=== PATIENT | female | born 1945 | race Caucasian/White ===

== ENCOUNTER 2020-01-22 03:09 | Inpatient (IN) | payer MEDICARE, MEDICAID ==
[2020-01-22] VITALS (10 sets, daily range): BP systolic 87–113; BP diastolic 19–71; O2SAT 95–97
[~2020-01-22] VITALS: Ht 154.9 cm; Wt 91.5 kg
[2020-01-22] MEDS ORDERED: BUPIVACAINE/EPIN 0.25% 30 ML VIAL As Ordered ONE (03:26)
[2020-01-22] MEDS ORDERED: propofoL 200 MG/20 ML VIAL As Ordered ONE (04:13)
[2020-01-22] MEDS ORDERED: ROCURONIUM BROMIDE 50 MG/5 ML VIAL As Ordered ONE ×2 (04:13→05:33)
[2020-01-22] MEDS ORDERED: LIDOCAINE 2% 100MG/5ML SDV (FOR ANES.) As Ordered ONE (04:13)
[2020-01-22] MEDS ORDERED: ONDANSETRON 4MG/2ML VIAL As Ordered ONE (04:13)
[2020-01-22] MEDS ORDERED: dexameTHASONE 4 MG/ML 1ML VIAL (J1100 PER 1MG) As Ordered ONE (04:13)
[2020-01-22] MEDS ORDERED: fentaNYL 100 MCG/2 ML INJECTION (J3010) As Ordered ONE (04:13)
[2020-01-22] MEDS ORDERED: SUCCINYLCHOLINE 100 MG/5 ML SYRINGE (J0330) As Ordered ONE (04:47)
[2020-01-22] MEDS ORDERED: MORPHINE 2 MG/ML 1ML VIAL (J2270) IV PRN (05:00)
[2020-01-22] MEDS ORDERED: PIPERACILLIN/TAZOBACTAM SOD 2.25 GM in D5W MINI-BAG PLUS 50 ML IV SCH (05:00)
[2020-01-22] MEDS ORDERED: metroNIDAZOLE 500 MG in IV 1 EA IV SCH (05:00)
[2020-01-22] MEDS ORDERED: VASOPRESSIN INJ 20 UNITS/ML VIAL As Ordered ONE (05:19)
[2020-01-22] MEDS ORDERED: ACETAMINOPHEN 1000MG 100ML IV BTL (OFIRMEV) (J0131 PER 10MG) As Ordered ONE (06:29)
[2020-01-22] MEDS ORDERED: SUGAMMADEX SODIUM 500 MG/5 ML VIAL (BRIDION) As Ordered ONE (06:39)
[2020-01-22] MEDS ORDERED: POTA1TAB23 PO (06:55)
[2020-01-22] MEDS ORDERED: RISP1TAB3 PO (06:55)
[2020-01-22] MEDS ORDERED: ASPI-527 PO (06:55)
[2020-01-22] MEDS ORDERED: DULO1CAP5 PO (06:55)
[2020-01-22] MEDS ORDERED: LEVO88TA3 PO (06:55)
[2020-01-22] MEDS ORDERED: LISI20TA19 PO (06:55)
[2020-01-22] MEDS ORDERED: METO1TAB7 PO (06:55)
[2020-01-22] MEDS ORDERED: OXYB5TAB10 PO (06:55)
[2020-01-22] MEDS ORDERED: CALCTAB89 PO (06:55)
[2020-01-22] MEDS ORDERED: HYDROmorphone HCL 2 MG/ML 1ML VIAL (J1170) As Ordered ONE (07:15)
[2020-01-22] MEDS ORDERED: PERCOCET 5MG/325MG TAB PO PRN (08:00)
[2020-01-22] MEDS ORDERED: ONDANSETRON 4MG/2ML VIAL IV PRN (08:00)
[2020-01-22] MEDS ORDERED: METOCLOPRAMIDE INJ 10MG/2ML VIAL (J2765 PER 1) IV PRN (08:00)
[2020-01-22] MEDS ORDERED: LR 1,000 ML IV SCH (08:00)
[2020-01-22] MEDS ORDERED: fentaNYL 100 MCG/2 ML INJECTION (J3010) IV PRN (08:00)
[2020-01-22] MEDS ORDERED: MEPERIDINE INJ 25 MG/ML VIAL (J2175) IV PRN (08:00)
[2020-01-22] MEDS ORDERED: PIPERACILLIN/TAZOBACTAM SOD 3.375 GM in D5W MINI-BAG PLUS 50 ML IV ONE (10:00)
[2020-01-22] MEDS ORDERED: SIMV20TA22 PO (10:04)
--- NOTE | 2020-01-22 10:08 | HPE ---
DATE OF ADMISSION: 01/22/2020 CHIEF COMPLAINT: Abdominal pain. HISTORY OF PRESENT ILLNESS: The patient is a 74-year-old female, who is transferred to dc from [facility] for perforated bowel. She presented there with abdominal pains that started around 7 o'clock last evening. The pains are progressively worse and sharp, minimal nausea and vomiting, no fevers, just severe lower abdominal pains. In the emergency room (ER), she had a CT scan done showing a perforated bowel as well as an elevated leukocytosis and signs of acute kidney injury as well. She was transferred to dc for emergent surgery. She says the pain just started last evening. She normally has bowel movements every other day that are normal in caliber, no complaints there, no problems with those. She has had a previous colonoscopy but she cannot remember when that was. No family history of colon cancer. No recent travel or trauma. No other problems. PAST MEDICAL HISTORY: 1. Hypothyroidism. 2. Hypertension. 3. Diabetes. 4. History of a previous transient ischemic attack (TIA). PAST SURGICAL HISTORY: 1. Thyroid radiation. 2. Umbilical hernia repair. ALLERGIES: NONE. HOME MEDICATIONS: Please see medical record. REVIEW OF SYSTEMS: Pertinent positives and negatives as stated in the history of present illness (HPI). PHYSICAL EXAMINATION: General: Alert and oriented times three, in no acute stress. Vital signs: Temperature 97.2, pulse 83, respirations 12, blood pressure 139/61, pulse oximetry 100% on non-rebreather, 94% on nasal cannula. HEENT: Pupils equal, round and react to light and accommodation. Heart: S1, S2, regular rate and rhythm. Lungs: Clear to auscultation bilaterally. Abdomen: Soft. Tender to palpation diffusely, rebound tenderness and guarding. Distended abdomen. There is an infraumbilical midline ventral hernia that is nonreducible. Extremities: Bilateral lower extremity pitting edema. LABORATORY DATA: Labs were all obtained outpatient. Please see her chart for the labs that were transferred over from [place]. IMAGING: Again, CT abdomen without contrast was obtained in [place]. Images were sent over and I reviewed those. She does have a large amount of free air in the abdomen along with some air-fluid levels. No obvious signs of a perforation on the CT. ASSESSMENT AND PLAN: The patient is a 74-year-old female with likely perforated viscus from somewhere in the colon. Recommendation is to proceed with exploratory laparotomy. Risks and benefits of procedure not limited but including bleeding, infection, hernia formation, damage to surrounding structure, need for further surgery were discussed in detail with the patient. Informed consent was obtained and procedure was planned emergently. Postoperatively, she will be kept in the hospital until she is tolerating bowel movements and able to take care of her ostomy and then she will be discharged home.
[2020-01-22] MEDS: SENOKOT S TAB PO SCH ×2 (10:45→20:09)
[2020-01-22] MEDS: PANTOPRAZOLE 40MG TAB (PROTONIX) PO SCH (10:45)
[2020-01-22] MEDS: KCL 20MEQ IN D5/0.45NS 1000ML 1,000 ML IV SCH ×2 (10:47→20:11)
[2020-01-22 10:49] LABS: CALCIUM LEVEL 8.7 MG/DL (8.8-10.2); CREATININE FOR GFR 1.86 MG/DL (0.55-1.30); GLOMERULAR FILTRATION RATE 28.2 (>39); POTASSIUM SERUM 4.4 MEQ/L (3.5-5.1)
--- NOTE | 2020-01-22 10:52 | RO ---
DATE OF PROCEDURE: 01/22/2020 PREOPERATIVE DIAGNOSIS: Perforated viscus. POSTOPERATIVE DIAGNOSIS: Perforated rectum. PROCEDURE: Exploratory laparotomy with abdominal washout, sigmoid resection with end sigmoid colostomy and drain placement. SURGEON: Dr. Garcia POLYSOMNOGRAPH TECH: None. ANESTHESIA: General. ESTIMATED BLOOD LOSS: 150. COMPLICATIONS: None. INDICATIONS FOR PROCEDURE: Patient is a 74-year-old female with abdominal pain and signs of a perforated viscus on CT. She was transferred from [facility] for emergent surgery. Risks of procedure not limited but including bleeding, infection, hernia formation, damage to surrounding structure, need for further surgery were discussed in detail with the patient. Informed consent was obtained and procedure was planned. DESCRIPTION OF PROCEDURE: Patient brought back to operating room #3. After sufficient sedation, the abdomen was sterilely prepped and draped. Next, time-out was done to confirm proper patient and proper procedure. Following that a #10 blade scalpel was used to make a midline laparotomy, incision was carried down to the fascia using cautery. Once the fascia was reached, it was opened up revealing a large amount of air. The abdomen was then opened up from the sternum down towards the pubic symphysis using cautery. The ventral hernia contained a large amount of incarcerated omentum. This was all dissected free and reduced. Once this was all completed, the abdomen was examined. There was gross stool in the pelvis and in the lower abdomen. This was all irrigated and removed. The colon was then examined. There was a large amount of hard fecal material throughout the entire colon and made it very difficult to mobilize. The sigmoid colon was redundant. Tracing the sigmoid down to the mid rectum did reveal an anterior rectal perforation. It was too distal to safely transect beyond that point due to out the large amount of hard stool in her colon. Even using the Bookwalter retractor the visualization down into the pelvis was very limited. I was however able to transect the bowel just proximal around the rectosigmoid junction. I was able to get through a window in the mesentery using cautery. The bowel was transected using the curved Contour stapler. Once that was completed, the mesentery was dissected proximally up through the sigmoid colon long enough to be able to pull out a segment of the distal sigmoid for a colostomy. Once that was completed, the abdomen was irrigated some more. Incision was made in the left midabdomen through the skin, the subcutaneous tissue using cautery. The fascia was then incised and the sigmoid colon was brought out through that incision. A 19-Nigerian Semaj drain was then placed in the pelvis, brought out to the right lower quadrant, sutured in place using a #2-0 silk suture. The abdomen was then closed using running #1 PDS suture. Once that was completed, the skin was stapled closed. The ostomy was then matured using interrupted #2-0 Vicryl sutures. Once that was completed, the abdomen was cleaned and irrigated. The ostomy appliance was placed. The wounds were covered with gauze, thus ending procedure.
[2020-01-22] MEDS: ENOXAPARIN 30MG/0.3ML SYRINGE (J1650 PER 10MG) SC SCH (13:13)
[2020-01-22] MEDS: DULoxetine 30 MG CAP (CYMBALTA) PO SCH (13:13)
--- NOTE | 2020-01-22 13:56 | CR.PDOC ---
General Date of Consultation: Jan 22, 2020 Consultation REASON FOR CONSULTATION/CHIEF COMPLAINT: . HISTORY OF PRESENT ILLNESS: Patient 74 years old female with past medical history of depression, anxiety, hypothyroidism, diabetes type 2 presented hospital with abdominal pain. Patient was found to have perforated bowel on the CT scan. Patient was transferred to the operation room and exploratory laparotomy with abdominal washout, sigmoid resection with end sigmoid colostomy and drain placement was performed by Dr. Garcia on 01/22/20. When I saw the patient she was resting comfortably on the bed, denies fever or chills, chest pain, palpitations ALLERGIES: Please see below. HOME MEDICATIONS: Please see below. PAST MEDICAL HISTORY: Depression/anxiety Hypothyroidism. Hypertension. Diabetes. History of a previous transient ischemic attack (TIA). PAST SURGICAL HISTORY: 1. Thyroid radiation. 2. Umbilical hernia repair. FAMILY HISTORY: I personally reviewed family history and found not pertinent SOCIAL HISTORY: Alcohol denied Tobacco use denied IV drug use: Denied REVIEW OF SYSTEMS: 10 point review system negative except as listed above PHYSICAL EXAMINATION: VITAL SIGNS: Please see below. GENERAL: awake, alert, NAD HEENT: NCAT, anicteric sclera, JORDYN NECK: supple, no JVD CARDIOVASCULAR EXAMINATION: NS1S2, regular rate/rhythm RESPIRATORY EXAMINATION: CTA b/l, no wheezes/rales/rhonchi ABDOMINAL EXAMINATION: positive bowel sounds, colostomy in place EXTREMITIES: no cyanosis, clubbing, edema SKIN: warm, no rashes. NEUROLOGICAL EXAMINATION: AAO x 3, no motor/sensory deficits PSYCHIATRIC EXAMINATION: calm, normal affect LABORATORY DATA: Please see below. ASSESSMENT/PLAN: Patient 74 years old female with past medical history of depression, anxiety, hypothyroidism, diabetes type 2 presented hospital with abdominal pain. Patient was found to have perforated bowel on the CT scan. Patient was transferred to the operation room and exploratory laparotomy with abdominal washout, sigmoid resection with end sigmoid colostomy and drain placement was performed by Dr. Garcia on 01/22/20 Hypertension Blood pressures under control Continue home medications Hypothyroidism Continue levothyroxine Bowel perforation Status post sigmoid resection with end sigmoid colostomy and drain placement Surgical team follows her Continue Zosyn Type 2 diabetes Insulin sliding scale Depression/anxiety Continue home meds Vital Signs/I&O Vital Signs Date Time Temp Pulse Resp B/P (MAP) Pulse Ox O2 Delivery O2 Flow Rate FiO2 01/22/20 12:40 96.9 84 22 89/60 (70) 97 Nasal Cannula 3.0 Laboratory Data Labs 24H Laboratory Tests 2 01/22/20 10:10: Anion Gap 10, Glomerular Filtration Rate 28.2L, Calcium Level 8.7L CBC/BMP Laboratory Tests 01/22/20 10:10 Allergies Coded Allergies: No Known Allergies (Unverified , 01/22/20) Home Medications Scheduled Aspirin (Aspirin EC) 325 Mg Tablet.dr, 325 MG PO DAILY, (Reported) Calcium Carbonate (Calcium) 600 Mg Tablet, 600 MG PO BID, (Reported) Duloxetine Hcl (Duloxetine HCl) 30 Mg Capsule.dr, 30 MG PO DAILY, (Reported) Levothyroxine Sodium (Levothyroxine Sodium) 88 Mcg Tablet, 88 MCG PO QAM, (Reported) Lisinopril/Hydrochlorothiazide (Lisinopril-Hctz 20-12.5 mg Tab) 1 Each Tablet, 1 TAB PO DAILY, (Reported) Metoprolol Succinate (Metoprolol Succinate) 50 Mg Tab.er.24h, 50 MG PO DAILY, (Reported) Oxybutynin Chloride (Oxybutynin Chloride) 5 Mg Tablet, 5 MG PO BID, (Reported) Potassium Chloride (Potassium Chloride) 10 Meq Tablet.er, 10 MEQ PO DAILY, (Reported) Risperidone (Risperidone) 1 Mg Tablet, 1 MG PO QHS, (Reported) Simvastatin (Simvastatin) 20 Mg Tablet, 20 MG PO DAILY, (Reported) ANTONIO CALIXTO DO Jan 22, 2020 13:56
[2020-01-22] MEDS ORDERED: DEXTROSE 50% 50 ML SYRINGE IV PRN (14:00)
[2020-01-22] MEDS ORDERED: GLUCOSE 4GM CHEW TABLET PO PRN (14:00)
[2020-01-22] MEDS ORDERED: GLUCAGON INJ 1MG VIAL SC PRN (14:00)
[2020-01-22 15:46] LABS: CALCIUM LEVEL 8.4 MG/DL (8.8-10.2); CREATININE FOR GFR 1.93 MG/DL (0.55-1.30); POTASSIUM SERUM 4.4 MEQ/L (3.5-5.1)
[2020-01-22] MEDS: PIPERACILLIN/TAZOBACTAM SOD 2.25 GM in D5W MINI-BAG PLUS 50 ML IV SCH ×2 (16:15→21:44)
[2020-01-22] MEDS: ACETAMINOPHEN TAB 650MG DOSE (2X325MG) PO PRN (16:16)
[2020-01-22] MEDS: HumaLOG INSULIN (NovoLOG) PER UNIT SC SCH (18:46)
[2020-01-22 19:29] LABS: CALCIUM LEVEL 8.1 MG/DL (8.8-10.2); CREATININE FOR GFR 1.87 MG/DL (0.55-1.30); POTASSIUM SERUM 4.2 MEQ/L (3.5-5.1)
[2020-01-22] MEDS: oxyBUTYnin 5 MG TAB PO SCH (20:10)
[2020-01-22] MEDS: NORCO, ANEXSIA 5/325MG TABLET (HYDROcodone/ACETAMINOPHEN) PO PRN (20:10)
[2020-01-22] MEDS: risperiDONE 1 MG TAB PO SCH (20:10)
[2020-01-22] MEDS: ONDANSETRON 4MG/2ML VIAL IV PRN (23:53)
[2020-01-23] MEDS: HumaLOG INSULIN (NovoLOG) PER UNIT SC SCH ×4 (00:06→18:00)
[2020-01-23] MEDS: KETOROLAC 30 MG/ML 1ML VIAL IV PRN ×2 (00:10→23:37)
[2020-01-23 02:00] VITALS: BP 110/64
[2020-01-23 02:07] LABS: CREATININE FOR GFR 1.81 MG/DL (0.55-1.30); GLOMERULAR FILTRATION RATE 29.1 (>39)
[2020-01-23] MEDS: PIPERACILLIN/TAZOBACTAM SOD 2.25 GM in D5W MINI-BAG PLUS 50 ML IV SCH ×4 (03:28→21:59)
[2020-01-23 05:40] LABS: HEMATOCRIT 34.9 % (36.0-47.0); HEMOGLOBIN 11.6 g/dl (12.0-15.5); MEAN CORPUSCULAR HGB CONC 33.2 g/dl (32.0-36.5); MEAN CORPUSCULAR VOLUME 84.3 fl (80.0-96.0); PLATELET COUNT, AUTOMATED 208 10^3/uL (150-450); RED BLOOD COUNT 4.14 10^6/uL (4.00-5.40); WHITE BLOOD COUNT 12.2 10^3/uL (4.0-10.0)
[2020-01-23 05:58] LABS: ATYPICAL LYMPH 1 % (0-5); LYMPHOCYTES 6 % (16-44); MONOCYTES 3 % (0-5); NEUTROPHILS 88 % (28-66); PLATELET ESTIMATE NORMAL (NORMAL)
[2020-01-23 06:00] VITALS: BP 113/57
[2020-01-23] MEDS: KCL 20MEQ IN D5/0.45NS 1000ML 1,000 ML IV SCH ×3 (06:03→15:34)
[2020-01-23 06:04] LABS: ALBUMIN 2.2 GM/DL (3.2-5.2); CALCIUM LEVEL 7.7 MG/DL (8.8-10.2); CREATININE FOR GFR 1.78 MG/DL (0.55-1.30); GLOMERULAR FILTRATION RATE 29.7 (>39); MAGNESIUM LEVEL 1.1 MG/DL (1.8-2.4); POTASSIUM SERUM 4.3 MEQ/L (3.5-5.1); TOTAL PROTEIN 4.8 GM/DL (6.4-8.2)
[2020-01-23] MEDS: LEVOTHYROXINE 88MCG TABLET (0.088 MG) PO SCH (06:04)
[2020-01-23] MEDS: oxyBUTYnin 5 MG TAB PO SCH ×2 (08:35→21:59)
[2020-01-23] MEDS: SENOKOT S TAB PO SCH ×2 (08:35→21:59)
[2020-01-23] MEDS: DULoxetine 30 MG CAP (CYMBALTA) PO SCH (08:35)
[2020-01-23] MEDS: SIMVASTATIN 20 MG TAB PO SCH (08:36)
[2020-01-23] MEDS: PANTOPRAZOLE 40MG TAB (PROTONIX) PO SCH (08:36)
[2020-01-23] MEDS: METOPROLOL SUCC (TopROL XL) 50MG **XL** TAB PO SCH (08:36)
[2020-01-23] MEDS: POTASSIUM CHLORIDE 10 MEQ SR TABLET PO SCH (08:36)
[2020-01-23] MEDS: ENOXAPARIN 30MG/0.3ML SYRINGE (J1650 PER 10MG) SC SCH (08:37)
[2020-01-23 14:00] VITALS: BP 98/50
[2020-01-23 14:30] LABS: CALCIUM LEVEL 7.7 MG/DL (8.8-10.2); CREATININE FOR GFR 1.86 MG/DL (0.55-1.30); GLOMERULAR FILTRATION RATE 28.2 (>39); POTASSIUM SERUM 4.3 MEQ/L (3.5-5.1)
[2020-01-23] MEDS: NORCO, ANEXSIA 5/325MG TABLET (HYDROcodone/ACETAMINOPHEN) PO PRN (17:25)
[2020-01-23 20:30] LABS: CALCIUM LEVEL 7.2 MG/DL (8.8-10.2); CREATININE FOR GFR 1.74 MG/DL (0.55-1.30); GLOMERULAR FILTRATION RATE 30.4 (>39); POTASSIUM SERUM 4.1 MEQ/L (3.5-5.1)
[2020-01-23] MEDS: risperiDONE 1 MG TAB PO SCH (21:59)
[2020-01-23 22:00] VITALS: BP 96/59
[2020-01-24] MEDS: KCL 20MEQ IN D5/0.45NS 1000ML 1,000 ML IV SCH ×2 (00:09→08:16)
[2020-01-24] MEDS: HumaLOG INSULIN (NovoLOG) PER UNIT SC SCH ×4 (00:10→18:00)
[2020-01-24 00:22] VITALS: O2SAT 91
[2020-01-24 02:23] LABS: CALCIUM LEVEL 6.9 MG/DL (8.8-10.2); CREATININE FOR GFR 1.86 MG/DL (0.55-1.30); GLOMERULAR FILTRATION RATE 28.2 (>39); POTASSIUM SERUM 4.2 MEQ/L (3.5-5.1)
[2020-01-24] MEDS: PIPERACILLIN/TAZOBACTAM SOD 2.25 GM in D5W MINI-BAG PLUS 50 ML IV SCH ×4 (04:29→21:57)
[2020-01-24] MEDS: LEVOTHYROXINE 88MCG TABLET (0.088 MG) PO SCH (05:48)
[2020-01-24 06:00] VITALS: BP 97/51
[2020-01-24 06:38] LABS: BASO % 0.1 % (0.0-1.0); EOS # 0.1 10^3/uL (0.0-0.5); EOS % 1.1 % (0.0-3.0); HEMATOCRIT 29.8 % (36.0-47.0); HEMOGLOBIN 9.9 g/dl (12.0-15.5); LYMPH % 10.5 % (24.0-44.0); MEAN CORPUSCULAR HEMOGLOBIN 28.4 pg (27.0-33.0); MEAN CORPUSCULAR HGB CONC 33.2 g/dl (32.0-36.5); MEAN CORPUSCULAR VOLUME 85.6 fl (80.0-96.0); MONO # 0.2 10^3/uL (0.0-0.8); MONO % 1.9 % (0.0-5.0); NEUTROPHILS # 8.2 10^3/uL (1.5-8.5); NEUTROPHILS % 84.4 % (36.0-66.0); PLATELET COUNT, AUTOMATED 179 10^3/uL (150-450); RED BLOOD COUNT 3.48 10^6/uL (4.00-5.40); WHITE BLOOD COUNT 9.7 10^3/uL (4.0-10.0)
[2020-01-24 06:45] LABS: BILIRUBIN,TOTAL 0.5 MG/DL (0.2-1.0); CALCIUM LEVEL 7.7 MG/DL (8.8-10.2); CREATININE FOR GFR 1.81 MG/DL (0.55-1.30); GLOMERULAR FILTRATION RATE 29.1 (>39); MAGNESIUM LEVEL 1.6 MG/DL (1.8-2.4); POTASSIUM SERUM 4.3 MEQ/L (3.5-5.1); TOTAL PROTEIN 4.8 GM/DL (6.4-8.2)
[2020-01-24] MEDS: oxyBUTYnin 5 MG TAB PO SCH ×2 (08:16→21:57)
[2020-01-24] MEDS: DULoxetine 30 MG CAP (CYMBALTA) PO SCH (08:16)
[2020-01-24] MEDS: ENOXAPARIN 30MG/0.3ML SYRINGE (J1650 PER 10MG) SC SCH (08:16)
[2020-01-24] MEDS: SENOKOT S TAB PO SCH ×2 (08:17→21:57)
[2020-01-24] MEDS: POTASSIUM CHLORIDE 10 MEQ SR TABLET PO SCH (08:17)
[2020-01-24] MEDS: SIMVASTATIN 20 MG TAB PO SCH (08:17)
[2020-01-24] MEDS: PANTOPRAZOLE 40MG TAB (PROTONIX) PO SCH (08:17)
[2020-01-24] MEDS: METOPROLOL SUCC (TopROL XL) 50MG **XL** TAB PO SCH (08:19)
[2020-01-24] MEDS: KETOROLAC 30 MG/ML 1ML VIAL IV PRN (11:49)
[2020-01-24] MEDS ORDERED: IPRATROPIUM 0.5MG/ALBUTEROL 2.5MG INH SOL UD 3ML (DUONEB)(J7620) NEB PRN (13:30)
[2020-01-24] MEDS: IPRATROPIUM 0.5MG/ALBUTEROL 2.5MG INH SOL UD 3ML (DUONEB)(J7620) NEB SCH ×2 (13:46→19:52)
[2020-01-24 14:00] VITALS: BP 97/56
--- NOTE | 2020-01-24 14:13 | IPN ---
DATE: 01/23/2020 The patient seems to be doing well overnight. This morning she really does not have a lot of pain. She is without nausea, without vomiting and seems relatively comfortable in bed. Her BEREKET is serosanguineous and her dressings are clean and dry. Otherwise really not complaining of significant pain even with palpation today. Her vital signs have been stable. She has no significant hypotension, although she was a little bit low. Her hematocrit is slightly on the lower side with a hematocrit of 35, but otherwise she seems to be doing well and seems to be appropriate for her post-op position. Her lungs are clear anteriorly. Heart is regular. Abdomen is soft, nondistended, morbidly obese, without any significant guarding, rebound or peritoneal signs. Ostomy is pink and the BEREKET is serosanguineous. IMPRESSION/PLAN: The patient seems to be stable today. No new changes. Continue with IV fluids. Continue with current plan, nothing by mouth for right now and we will see how she is doing over the next 24-48 hours.
--- NOTE | 2020-01-24 14:17 | IPN ---
DATE: 01/24/2020 White count has come down nicely. She states that she is feeling well. She has been up out of bed. She has been walking in the halls and her ostomy has not started to work as of yet. She has been afebrile. Overall from an Intake and output (I and O) standpoint she has had good urine output yesterday. This morning does not look as much on the I and Os, but when I look at the bedside urinometer she has had a significant amount of urine output. Her BEREKET drain is serosanguineous and it is decreasing amounts. She states that she feels full today but without any nausea. On her physical exam lungs are clear although she states occasionally when she takes a deep breath in she sometimes wheezes but I am not hearing any crackles or wheezes at this time. Although with her abdomen she has a little bit more distension today and I anticipate there is some third spacing going on that is causing a little bit more compression of her lungs. But with her good urine output she may be a little bit on the adequately fluid resuscitated side of things. IMPRESSION AND PLAN Patient has been doing relatively well, making good progress. No evidence of sepsis and thus urine output seems to cloth picker, thus I think that she is resolving this infectious process and will decrease her IV fluids at this time. Will keep her BEREKET in place, continue with nothing by mouth (npo) and given her minimal wheezing it is reasonable to start her on some nebulizers to help with respiratory status. But otherwise continue with the current treatment if she gets more short of breath. Proceed with a chest x-ray, but possibly Lasix if necessary.
[2020-01-24] MEDS: risperiDONE 1 MG TAB PO SCH (21:57)
[2020-01-24] MEDS: ACETAMINOPHEN TAB 650MG DOSE (2X325MG) PO PRN (21:58)
[2020-01-24 22:00] VITALS: BP 113/65
[2020-01-25 01:08] VITALS: O2SAT 91
[2020-01-25] MEDS: IPRATROPIUM 0.5MG/ALBUTEROL 2.5MG INH SOL UD 3ML (DUONEB)(J7620) NEB SCH ×4 (01:30→20:21)
[2020-01-25] MEDS: PIPERACILLIN/TAZOBACTAM SOD 2.25 GM in D5W MINI-BAG PLUS 50 ML IV SCH ×4 (04:45→21:46)
[2020-01-25] MEDS: LEVOTHYROXINE 88MCG TABLET (0.088 MG) PO SCH (05:47)
[2020-01-25] MEDS: HumaLOG INSULIN (NovoLOG) PER UNIT SC SCH ×5 (05:47→21:00)
[2020-01-25 06:00] VITALS: BP 115/61
[2020-01-25 06:18] LABS: BASO % 0.3 % (0.0-1.0); EOS # 0.3 10^3/uL (0.0-0.5); HEMATOCRIT 30.2 % (36.0-47.0); HEMOGLOBIN 9.8 g/dl (12.0-15.5); LYMPH # 1.2 10^3/uL (1.5-5.0); LYMPH % 15.7 % (24.0-44.0); MEAN CORPUSCULAR HEMOGLOBIN 28.1 pg (27.0-33.0); MEAN CORPUSCULAR HGB CONC 32.5 g/dl (32.0-36.5); MEAN CORPUSCULAR VOLUME 86.5 fl (80.0-96.0); MONO # 0.2 10^3/uL (0.0-0.8); MONO % 2.6 % (0.0-5.0); NEUTROPHILS % 76.6 % (36.0-66.0); PLATELET COUNT, AUTOMATED 181 10^3/uL (150-450); RED BLOOD COUNT 3.49 10^6/uL (4.00-5.40); WHITE BLOOD COUNT 7.8 10^3/uL (4.0-10.0)
[2020-01-25 07:00] LABS: BILIRUBIN,TOTAL 0.6 MG/DL (0.2-1.0); CALCIUM LEVEL 7.9 MG/DL (8.8-10.2); CREATININE FOR GFR 1.76 MG/DL (0.55-1.30); MAGNESIUM LEVEL 1.8 MG/DL (1.8-2.4); POTASSIUM SERUM 4.3 MEQ/L (3.5-5.1); TOTAL PROTEIN 5.9 GM/DL (6.4-8.2)
[2020-01-25] MEDS: SENOKOT S TAB PO SCH ×2 (09:58→21:46)
[2020-01-25] MEDS: ENOXAPARIN 30MG/0.3ML SYRINGE (J1650 PER 10MG) SC SCH (09:58)
[2020-01-25] MEDS: POTASSIUM CHLORIDE 10 MEQ SR TABLET PO SCH (09:58)
[2020-01-25] MEDS: SIMVASTATIN 20 MG TAB PO SCH (09:59)
[2020-01-25] MEDS: METOPROLOL SUCC (TopROL XL) 50MG **XL** TAB PO SCH (09:59)
[2020-01-25] MEDS: oxyBUTYnin 5 MG TAB PO SCH ×2 (09:59→21:46)
[2020-01-25] MEDS: DULoxetine 30 MG CAP (CYMBALTA) PO SCH (09:59)
[2020-01-25] MEDS: PANTOPRAZOLE 40MG TAB (PROTONIX) PO SCH (09:59)
--- NOTE | 2020-01-25 10:44 | IPN ---
DATE: 01/25/2020 Subjectively, the patient states that she is doing well although feeling a little weak and is getting hungry. Has had no nausea, no vomiting, and has had some flatus and liquid out of her ostomy. She has been afebrile. Her Jerel-Gray (J-P) drainage has decreased substantially and it is still serosanguineous. Her Odell catheter is in place and clear. She states that she feels as though she would be able to get up and move around. On her physical exam, abdomen is obese, nontender. Dressing is clean and dry. No drainage. No erythema. Her ostomy is functioning well. IMPRESSION/PLAN: The patient is status post perforated colon and is doing well with a colostomy. At this time, we will progress her diet. We will Hep-Lock her IV, get her out of bed more and have the Odell discontinued. We will see how she is does over the next 24 hours with progression of her diet and then will start ostomy teaching.
[2020-01-25] MEDS ORDERED: DEXTROSE 50% 50 ML SYRINGE IV PRN (11:15)
[2020-01-25] MEDS ORDERED: GLUCAGON INJ 1MG VIAL SC PRN (11:15)
[2020-01-25] MEDS ORDERED: GLUCOSE 4GM CHEW TABLET PO PRN (11:15)
[2020-01-25 14:00] VITALS: BP 172/74
[2020-01-25 15:42] VITALS: O2SAT 94
[2020-01-25 21:00] VITALS: O2SAT 93
[2020-01-25] MEDS: risperiDONE 1 MG TAB PO SCH (21:46)
[2020-01-25 22:00] VITALS: BP 129/71
[2020-01-26] MEDS: IPRATROPIUM 0.5MG/ALBUTEROL 2.5MG INH SOL UD 3ML (DUONEB)(J7620) NEB SCH ×4 (02:45→20:44)
[2020-01-26] MEDS: PIPERACILLIN/TAZOBACTAM SOD 2.25 GM in D5W MINI-BAG PLUS 50 ML IV SCH (04:42)
[2020-01-26] MEDS: LEVOTHYROXINE 88MCG TABLET (0.088 MG) PO SCH (05:30)
[2020-01-26 06:00] VITALS: BP 131/69
[2020-01-26 06:15] LABS: BASO % 0.1 % (0.0-1.0); EOS # 0.3 10^3/uL (0.0-0.5); EOS % 4.1 % (0.0-3.0); HEMATOCRIT 36.2 % (36.0-47.0); HEMOGLOBIN 11.7 g/dl (12.0-15.5); LYMPH # 1.2 10^3/uL (1.5-5.0); LYMPH % 17.4 % (24.0-44.0); MEAN CORPUSCULAR HEMOGLOBIN 27.9 pg (27.0-33.0); MEAN CORPUSCULAR HGB CONC 32.3 g/dl (32.0-36.5); MEAN CORPUSCULAR VOLUME 86.2 fl (80.0-96.0); MONO # 0.3 10^3/uL (0.0-0.8); MONO % 4.7 % (0.0-5.0); NEUTROPHILS % 73.1 % (36.0-66.0); PLATELET COUNT, AUTOMATED 208 10^3/uL (150-450); WHITE BLOOD COUNT 6.8 10^3/uL (4.0-10.0)
[2020-01-26 06:34] LABS: ALBUMIN 2.1 GM/DL (3.2-5.2); BILIRUBIN,TOTAL 0.7 MG/DL (0.2-1.0); CREATININE FOR GFR 1.39 MG/DL (0.55-1.30); GLOMERULAR FILTRATION RATE 39.5 (>39); MAGNESIUM LEVEL 1.9 MG/DL (1.8-2.4); POTASSIUM SERUM 4.3 MEQ/L (3.5-5.1); TOTAL PROTEIN 5.1 GM/DL (6.4-8.2)
--- NOTE | 2020-01-26 07:45 | IPNPDOC ---
Text Note Date of Service The patient was seen on 01/26/20. NOTE No acute events over the weekend. She is tolerating diet and ambulating. Pain is minimal. There is air in the ostomy with little stool. VSSAF NAD abd - soft, TTP appropriate, incisions c/d/i, ostomy is pink with air in bag, drain is serosanguinous labs - below A) 74y/o female with rectal perforation likely secondary to constipation P) reg diet ambulate ostomy teaching d/c abx d/c morphine set up homecare Collins Garcia DO VS,Teodorobone, I+O VS, Teodorobone, I+O Laboratory Tests 01/26/20 05:31 01/26/20 05:32 Vital Signs Date Time Temp Pulse Resp B/P (MAP) Pulse Ox O2 Delivery O2 Flow Rate FiO2 01/26/20 06:00 98.2 86 20 131/69 (89) 93 Room Air 01/23/20 06:00 2.0 I&O- Last 24 Hours up to 6 AM 01/26/20 05:59 Intake Total 1060 ml Output Total 905 ml Balance 155 ml MADI GARCIA DO Jan 26, 2020 07:45
[2020-01-26] MEDS ORDERED: MAGNESIUM CITRATE 300 ML BTL PO ONE (08:00)
[2020-01-26] MEDS: DULoxetine 30 MG CAP (CYMBALTA) PO SCH (08:45)
[2020-01-26] MEDS: SENOKOT S TAB PO SCH ×2 (08:45→21:50)
[2020-01-26] MEDS: SIMVASTATIN 20 MG TAB PO SCH (08:45)
[2020-01-26] MEDS: METOPROLOL SUCC (TopROL XL) 50MG **XL** TAB PO SCH (08:48)
[2020-01-26] MEDS: HumaLOG INSULIN (NovoLOG) PER UNIT SC SCH ×4 (08:52→21:00)
[2020-01-26] MEDS: PANTOPRAZOLE 40MG TAB (PROTONIX) PO SCH (08:58)
[2020-01-26] MEDS: oxyBUTYnin 5 MG TAB PO SCH ×2 (08:58→21:50)
[2020-01-26] MEDS: POTASSIUM CHLORIDE 10 MEQ SR TABLET PO SCH (08:58)
[2020-01-26] MEDS: ENOXAPARIN 30MG/0.3ML SYRINGE (J1650 PER 10MG) SC SCH (09:00)
[2020-01-26] MEDS: ONDANSETRON 4MG/2ML VIAL IV PRN ×2 (09:23→16:49)
[2020-01-26 14:00] VITALS: BP 129/80
[2020-01-26] MEDS: BISACODYL 10 MG SUPP PR SCH ×2 (16:50→21:50)
[2020-01-26 17:03] VITALS: O2SAT 94
[2020-01-26] MEDS ORDERED: NS 1,000 ML IV ONE (18:30)
[2020-01-26 21:00] VITALS: O2SAT 93; O2SAT 94
[2020-01-26] MEDS: risperiDONE 1 MG TAB PO SCH (21:49)
[2020-01-26] MEDS: MIRALAX *UNIT DOSE* 17GM PACKET PO SCH (21:50)
[2020-01-26 22:00] VITALS: BP 139/96
[2020-01-27 00:03] VITALS: BP 128/82
[2020-01-27] MEDS: IPRATROPIUM 0.5MG/ALBUTEROL 2.5MG INH SOL UD 3ML (DUONEB)(J7620) NEB SCH ×4 (02:49→19:06)
[2020-01-27] MEDS: LEVOTHYROXINE 88MCG TABLET (0.088 MG) PO SCH (05:35)
[2020-01-27 06:00] VITALS: BP 139/71
[2020-01-27] MEDS: ONDANSETRON 4MG/2ML VIAL IV PRN (06:27)
[2020-01-27 06:47] LABS: BASO % 0.4 % (0.0-1.0); EOS # 0.3 10^3/uL (0.0-0.5); EOS % 2.9 % (0.0-3.0); HEMATOCRIT 38.2 % (36.0-47.0); HEMOGLOBIN 12.4 g/dl (12.0-15.5); LYMPH # 1.9 10^3/uL (1.5-5.0); LYMPH % 18.2 % (24.0-44.0); MEAN CORPUSCULAR HEMOGLOBIN 27.6 pg (27.0-33.0); MEAN CORPUSCULAR HGB CONC 32.5 g/dl (32.0-36.5); MEAN CORPUSCULAR VOLUME 84.9 fl (80.0-96.0); MONO # 0.6 10^3/uL (0.0-0.8); MONO % 5.6 % (0.0-5.0); NEUTROPHILS # 7.4 10^3/uL (1.5-8.5); NEUTROPHILS % 71.9 % (36.0-66.0); PLATELET COUNT, AUTOMATED 280 10^3/uL (150-450); WHITE BLOOD COUNT 10.3 10^3/uL (4.0-10.0)
[2020-01-27 07:09] LABS: ALBUMIN 2.4 GM/DL (3.2-5.2); BILIRUBIN,TOTAL 0.6 MG/DL (0.2-1.0); CALCIUM LEVEL 8.2 MG/DL (8.8-10.2); CREATININE FOR GFR 1.27 MG/DL (0.55-1.30); GLOMERULAR FILTRATION RATE 43.8 (>39); MAGNESIUM LEVEL 2.4 MG/DL (1.8-2.4); POTASSIUM SERUM 4.2 MEQ/L (3.5-5.1); TOTAL PROTEIN 5.8 GM/DL (6.4-8.2)
[2020-01-27 07:20] VITALS: O2SAT 91
[2020-01-27] MEDS: HumaLOG INSULIN (NovoLOG) PER UNIT SC SCH ×4 (07:30→23:50)
--- NOTE | 2020-01-27 08:34 | IPNPDOC ---
Text Note Date of Service The patient was seen on 01/27/20. NOTE No acute events over night. She is ambulating in the halls, and has lots of air in her ostomy. However, she is still having lots of nausea and emesis. Pain is minimal. VSSAF NAD abd - soft, TTP appropriate, incisions c/d/i, ostomy is pink with air and liquid stool in bag, drain is serosanguinous labs - below A) 74y/o female with rectal perforation likely secondary to constipation P) reg diet ambulate ostomy teaching place NGT enemas through ostomy along with suppositories miralax and lactulose PO set up homecare Collins Garcia DO VS,Fishbone, I+O VS, Frankye, I+O Laboratory Tests 01/27/20 06:12 Vital Signs Date Time Temp Pulse Resp B/P (MAP) Pulse Ox O2 Delivery O2 Flow Rate FiO2 01/27/20 07:20 91 Room Air 01/27/20 06:00 97.9 93 17 139/71 (93) 01/23/20 06:00 2.0 I&O- Last 24 Hours up to 6 AM 01/27/20 06:00 Intake Total 1590 ml Output Total 135 ml Balance 1455 ml MADI GARCIA DO Jan 27, 2020 08:34
[2020-01-27] MEDS: oxyBUTYnin 5 MG TAB PO SCH ×2 (08:37→20:49)
[2020-01-27] MEDS: SIMVASTATIN 20 MG TAB PO SCH (08:37)
[2020-01-27] MEDS: SENOKOT S TAB PO SCH ×2 (08:37→20:49)
[2020-01-27] MEDS: PANTOPRAZOLE 40MG TAB (PROTONIX) PO SCH (08:37)
[2020-01-27] MEDS: DULoxetine 30 MG CAP (CYMBALTA) PO SCH (08:38)
[2020-01-27] MEDS: METOPROLOL SUCC (TopROL XL) 50MG **XL** TAB PO SCH (08:41)
[2020-01-27] MEDS: POTASSIUM CHLORIDE 10 MEQ SR TABLET PO SCH (08:42)
[2020-01-27] MEDS: ENOXAPARIN 30MG/0.3ML SYRINGE (J1650 PER 10MG) SC SCH (08:48)
[2020-01-27] MEDS: BISACODYL 10 MG SUPP PR SCH ×3 (08:48→20:49)
[2020-01-27] MEDS: FLEET ENEMA PR SCH ×2 (13:12→20:48)
[2020-01-27] MEDS: LACTULOSE 20 GM/30 ML SYRUP UD PO SCH ×3 (13:24→20:48)
[2020-01-27] MEDS: MIRALAX *UNIT DOSE* 17GM PACKET PO SCH ×2 (13:24→20:49)
--- NOTE | 2020-01-27 13:49 | REP ---
REASON: Assess nasogastric tube placement. The technique utilized in obtaining the radiograph has magnified the cardiac silhouette and accentuated the interstitial markings. There are no priors for comparison. There is a curvilinear radiodensity seen coursing the esophagus consistent with a nasogastric tube, the tip of which is in the stomach fundal region. The lung pardo are clear. The cardiac silhouette is magnified by technique. The osseous structures are within normal limits. IMPRESSION: No acute disease. Nasogastric tube as described above. Electronically Signed by Noam Johnson DO 01/27/2020 04:49 P
[2020-01-27 14:00] VITALS: BP 132/76
[2020-01-27] MEDS: LR 1,000 ML IV SCH (19:40)
[2020-01-27] MEDS: risperiDONE 1 MG TAB PO SCH (20:49)
[2020-01-27 22:00] VITALS: BP 146/70; O2SAT 91
[2020-01-28] MEDS: IPRATROPIUM 0.5MG/ALBUTEROL 2.5MG INH SOL UD 3ML (DUONEB)(J7620) NEB SCH ×4 (01:41→19:33)
[2020-01-28 06:00] VITALS: BP 124/68
[2020-01-28] MEDS: HumaLOG INSULIN (NovoLOG) PER UNIT SC SCH ×3 (06:00→17:25)
[2020-01-28] MEDS: LEVOTHYROXINE 88MCG TABLET (0.088 MG) PO SCH (06:05)
[2020-01-28 06:12] LABS: BASO % 0.4 % (0.0-1.0); EOS # 0.3 10^3/uL (0.0-0.5); EOS % 3.5 % (0.0-3.0); HEMATOCRIT 32.6 % (36.0-47.0); HEMOGLOBIN 10.7 g/dl (12.0-15.5); LYMPH # 1.7 10^3/uL (1.5-5.0); LYMPH % 22.4 % (24.0-44.0); MEAN CORPUSCULAR HEMOGLOBIN 28.1 pg (27.0-33.0); MEAN CORPUSCULAR HGB CONC 32.8 g/dl (32.0-36.5); MEAN CORPUSCULAR VOLUME 85.6 fl (80.0-96.0); MONO # 0.5 10^3/uL (0.0-0.8); MONO % 5.9 % (0.0-5.0); NEUTROPHILS # 5.2 10^3/uL (1.5-8.5); NEUTROPHILS % 66.5 % (36.0-66.0); PLATELET COUNT, AUTOMATED 246 10^3/uL (150-450); RED BLOOD COUNT 3.81 10^6/uL (4.00-5.40); WHITE BLOOD COUNT 7.8 10^3/uL (4.0-10.0)
[2020-01-28 06:39] LABS: ALBUMIN 2.1 GM/DL (3.2-5.2); BILIRUBIN,TOTAL 0.5 MG/DL (0.2-1.0); CREATININE FOR GFR 1.18 MG/DL (0.55-1.30); GLOMERULAR FILTRATION RATE 47.7 (>39); MAGNESIUM LEVEL 2.1 MG/DL (1.8-2.4)
[2020-01-28 07:18] VITALS: O2SAT 90
--- NOTE | 2020-01-28 07:39 | IPNPDOC ---
Text Note Date of Service The patient was seen on 01/28/20. NOTE No acute events over night. Pain is minimal. She has some liquid stool in the bag, but no large output yet. Urine output has increased. VSSAF NAD abd - soft, TTP appropriate, incisions c/d/i, ostomy is pink with air and liquid stool in bag, drain is serosanguinous labs - below A) 74y/o female with rectal perforation likely secondary to constipation P) ambulate ostomy teaching NGT to LIS enemas through ostomy along with suppositories miralax and lactulose PO mag citrate set up homecare Collins Garcia DO VS,Andrew, I+O VS, Fishlaineye, I+O Laboratory Tests 01/28/20 05:53 Vital Signs Date Time Temp Pulse Resp B/P (MAP) Pulse Ox O2 Delivery O2 Flow Rate FiO2 01/28/20 07:18 90 Room Air 01/28/20 06:00 98.8 93 18 124/68 (86) 01/23/20 06:00 2.0 I&O- Last 24 Hours up to 6 AM 01/28/20 06:00 Intake Total 1160 ml Output Total 2085 ml Balance -925 ml MADI GARCIA DO Jan 28, 2020 07:39
[2020-01-28] MEDS ORDERED: MAGNESIUM CITRATE 300 ML BTL PO ONE (07:45)
[2020-01-28] MEDS: SIMVASTATIN 20 MG TAB PO SCH (08:53)
[2020-01-28] MEDS: LR 1,000 ML IV SCH (08:53)
[2020-01-28] MEDS: DULoxetine 30 MG CAP (CYMBALTA) PO SCH (08:53)
[2020-01-28] MEDS: oxyBUTYnin 5 MG TAB PO SCH ×2 (08:53→22:15)
[2020-01-28] MEDS: PANTOPRAZOLE 40MG TAB (PROTONIX) PO SCH (08:53)
[2020-01-28] MEDS: BISACODYL 10 MG SUPP PR SCH ×3 (08:53→22:14)
[2020-01-28] MEDS: SENOKOT S TAB PO SCH ×2 (08:53→22:15)
[2020-01-28] MEDS: FLEET ENEMA PR SCH ×2 (08:54→22:16)
[2020-01-28] MEDS: POTASSIUM CHLORIDE 10 MEQ SR TABLET PO SCH (08:54)
[2020-01-28] MEDS: ENOXAPARIN 30MG/0.3ML SYRINGE (J1650 PER 10MG) SC SCH (08:54)
[2020-01-28] MEDS: MIRALAX *UNIT DOSE* 17GM PACKET PO SCH ×2 (08:54→22:15)
[2020-01-28] MEDS: METOPROLOL SUCC (TopROL XL) 50MG **XL** TAB PO SCH (08:56)
[2020-01-28 09:00] VITALS: O2SAT 94
[2020-01-28 14:00] VITALS: BP 125/72
[2020-01-28] MEDS: D5W/LR 1,000 ML IV SCH (17:40)
[2020-01-28 22:00] VITALS: BP 129/59
[2020-01-28] MEDS: LACTULOSE 20 GM/30 ML SYRUP UD PO SCH (22:14)
[2020-01-28] MEDS: risperiDONE 1 MG TAB PO SCH (22:14)
[2020-01-29] MEDS: IPRATROPIUM 0.5MG/ALBUTEROL 2.5MG INH SOL UD 3ML (DUONEB)(J7620) NEB SCH ×4 (01:07→19:29)
[2020-01-29] MEDS: HumaLOG INSULIN (NovoLOG) PER UNIT SC SCH ×4 (01:19→17:42)
[2020-01-29 02:32] VITALS: O2SAT 91
[2020-01-29] MEDS: D5W/LR 1,000 ML IV SCH ×2 (04:32→17:43)
[2020-01-29 06:00] VITALS: BP 130/65
[2020-01-29] MEDS: LEVOTHYROXINE 88MCG TABLET (0.088 MG) PO SCH (06:21)
[2020-01-29 07:30] LABS: BASO % 0.3 % (0.0-1.0); EOS # 0.4 10^3/uL (0.0-0.5); EOS % 6.2 % (0.0-3.0); HEMATOCRIT 31.7 % (36.0-47.0); LYMPH # 1.5 10^3/uL (1.5-5.0); LYMPH % 24.1 % (24.0-44.0); MEAN CORPUSCULAR HEMOGLOBIN 27.2 pg (27.0-33.0); MEAN CORPUSCULAR HGB CONC 31.5 g/dl (32.0-36.5); MEAN CORPUSCULAR VOLUME 86.4 fl (80.0-96.0); MONO # 0.4 10^3/uL (0.0-0.8); MONO % 6.4 % (0.0-5.0); NEUTROPHILS # 3.8 10^3/uL (1.5-8.5); NEUTROPHILS % 61.9 % (36.0-66.0); PLATELET COUNT, AUTOMATED 241 10^3/uL (150-450); RED BLOOD COUNT 3.67 10^6/uL (4.00-5.40); WHITE BLOOD COUNT 6.1 10^3/uL (4.0-10.0)
[2020-01-29 07:49] LABS: ALBUMIN 1.9 GM/DL (3.2-5.2); BILIRUBIN,TOTAL 0.4 MG/DL (0.2-1.0); CALCIUM LEVEL 7.7 MG/DL (8.8-10.2); CREATININE FOR GFR 1.04 MG/DL (0.55-1.30); GLOMERULAR FILTRATION RATE 55.1 (>39); MAGNESIUM LEVEL 2.3 MG/DL (1.8-2.4); TOTAL PROTEIN 5.2 GM/DL (6.4-8.2)
[2020-01-29 08:00] VITALS: O2SAT 91
--- NOTE | 2020-01-29 08:09 | IPNPDOC ---
Text Note Date of Service The patient was seen on 01/29/20. NOTE No acute events over night. Pain is minimal. She has some liquid stool in the bag, and had some larger output overnight. Urine output has increased. VSSAF NAD abd - soft, TTP appropriate, incisions c/d/i, ostomy is pink with air and liquid stool in bag, drain is serosanguinous labs - below A) 74y/o female with rectal perforation likely secondary to constipation P) ambulate ostomy teaching clamp NGT enemas through ostomy along with suppositories miralax and lactulose PO mag citrate set up homecare if not tolerating diet this am, then we will place PICC and start TPN d/c drain Collins Garcia DO VS,Andrew, I+O VS, Andrew, I+O Laboratory Tests 01/29/20 06:55 Vital Signs Date Time Temp Pulse Resp B/P (MAP) Pulse Ox O2 Delivery O2 Flow Rate FiO2 01/29/20 06:00 98.1 70 15 130/65 (86) 96 Room Air 01/23/20 06:00 2.0 I&O- Last 24 Hours up to 6 AM 01/29/20 06:00 Intake Total 1350 ml Output Total 1535 ml Balance -185 ml MADI GARCIA DO Jan 29, 2020 08:09
[2020-01-29] MEDS: PANTOPRAZOLE 40MG TAB (PROTONIX) PO SCH (08:21)
[2020-01-29] MEDS: POTASSIUM CHLORIDE 10 MEQ SR TABLET PO SCH (08:21)
[2020-01-29] MEDS: DULoxetine 30 MG CAP (CYMBALTA) PO SCH (08:21)
[2020-01-29] MEDS: ENOXAPARIN 30MG/0.3ML SYRINGE (J1650 PER 10MG) SC SCH (08:21)
[2020-01-29] MEDS: MIRALAX *UNIT DOSE* 17GM PACKET NG SCH ×2 (08:21→21:08)
[2020-01-29] MEDS: METOPROLOL SUCC (TopROL XL) 50MG **XL** TAB PO SCH (08:22)
[2020-01-29] MEDS: LACTULOSE 20 GM/30 ML SYRUP UD NG SCH ×2 (08:22→21:08)
[2020-01-29] MEDS: oxyBUTYnin 5 MG TAB PO SCH ×2 (08:22→21:08)
[2020-01-29] MEDS: SENOKOT S TAB PO SCH ×2 (08:22→21:08)
[2020-01-29] MEDS: BISACODYL 10 MG SUPP PR SCH ×3 (08:22→21:08)
[2020-01-29] MEDS: SIMVASTATIN 20 MG TAB PO SCH (08:22)
[2020-01-29] MEDS ORDERED: MAGNESIUM CITRATE 300 ML BTL PO ONE (09:00)
[2020-01-29] MEDS: FLEET ENEMA PR SCH ×2 (11:32→23:12)
[2020-01-29] MEDS: risperiDONE 1 MG TAB PO SCH (21:08)
[2020-01-29 22:00] VITALS: BP 120/70
[2020-01-30] MEDS: HumaLOG INSULIN (NovoLOG) PER UNIT SC SCH ×4 (00:08→18:12)
[2020-01-30 00:59] VITALS: O2SAT 97
[2020-01-30] MEDS: IPRATROPIUM 0.5MG/ALBUTEROL 2.5MG INH SOL UD 3ML (DUONEB)(J7620) NEB SCH ×4 (01:22→19:38)
[2020-01-30] MEDS: ONDANSETRON 4MG/2ML VIAL IV PRN ×3 (03:28→21:55)
[2020-01-30 05:26] VITALS: BP 131/60
[2020-01-30] MEDS: LEVOTHYROXINE 88MCG TABLET (0.088 MG) PO SCH (05:51)
[2020-01-30 06:26] LABS: HEMATOCRIT 33.1 % (36.0-47.0); HEMOGLOBIN 10.6 g/dl (12.0-15.5); MEAN CORPUSCULAR HEMOGLOBIN 27.9 pg (27.0-33.0); MEAN CORPUSCULAR VOLUME 87.1 fl (80.0-96.0); PLATELET COUNT, AUTOMATED 272 10^3/uL (150-450); WHITE BLOOD COUNT 7.8 10^3/uL (4.0-10.0)
[2020-01-30 06:56] LABS: BILIRUBIN,TOTAL 0.7 MG/DL (0.2-1.0); CALCIUM LEVEL 7.6 MG/DL (8.8-10.2); CREATININE FOR GFR 1.02 MG/DL (0.55-1.30); GLOMERULAR FILTRATION RATE 56.4 (>39); POTASSIUM SERUM 3.9 MEQ/L (3.5-5.1); TOTAL PROTEIN 5.5 GM/DL (6.4-8.2)
--- NOTE | 2020-01-30 08:54 | IPNPDOC ---
Text Note Date of Service The patient was seen on 01/30/20. NOTE No acute events over night. Pain is minimal. She has some liquid stool in the bag, but she has had some emesis overnight as well. VSSAF NAD abd - soft, TTP appropriate, incisions c/d/i, ostomy is pink with air and liquid stool in bag labs - below A) 74y/o female with rectal perforation likely secondary to constipation BRIDGETTE due to dehydration resolved P) ambulate ostomy teaching clamp NGT enemas through ostomy along with suppositories miralax and lactulose PO mag citrate set up homecare golytely down the NGT PICC line TPN Collins Garcia DO VS,Fishbone, I+O VS, Fishbone, I+O Laboratory Tests 01/30/20 05:48 Vital Signs Date Time Temp Pulse Resp B/P (MAP) Pulse Ox O2 Delivery O2 Flow Rate FiO2 01/30/20 05:26 99.3 72 18 131/60 (83) 92 Room Air I&O- Last 24 Hours up to 6 AM 01/30/20 06:00 Intake Total 2820 ml Output Total 700 ml Balance 2120 ml MADI GARCIA DO Jan 30, 2020 08:54
[2020-01-30] MEDS: ENOXAPARIN 30MG/0.3ML SYRINGE (J1650 PER 10MG) SC SCH (09:00)
[2020-01-30] MEDS: D5W/LR 1,000 ML IV SCH (09:30)
[2020-01-30] MEDS: oxyBUTYnin 5 MG TAB PO SCH ×2 (09:37→23:29)
[2020-01-30] MEDS: DULoxetine 30 MG CAP (CYMBALTA) PO SCH (09:37)
[2020-01-30] MEDS: MIRALAX *UNIT DOSE* 17GM PACKET NG SCH ×2 (09:37→23:28)
[2020-01-30] MEDS: METOPROLOL SUCC (TopROL XL) 50MG **XL** TAB PO SCH (09:37)
[2020-01-30] MEDS: SIMVASTATIN 20 MG TAB PO SCH (09:37)
[2020-01-30] MEDS: PANTOPRAZOLE 40MG TAB (PROTONIX) PO SCH (09:37)
[2020-01-30] MEDS: BISACODYL 10 MG SUPP PR SCH ×3 (09:37→23:28)
[2020-01-30] MEDS: POTASSIUM CHLORIDE 10 MEQ SR TABLET PO SCH (09:38)
[2020-01-30] MEDS: LACTULOSE 20 GM/30 ML SYRUP UD NG SCH ×2 (09:38→23:27)
[2020-01-30] MEDS: SENOKOT S TAB PO SCH ×2 (09:38→23:29)
[2020-01-30] MEDS ORDERED: LIDOCAINE 1% MDV 20ML VIAL As Ordered ONE (09:44)
[2020-01-30] MEDS ORDERED: GOLYTELY SOLN 4000 ML BTL PO ONE (10:00)
[2020-01-30] MEDS: FLEET ENEMA PR SCH ×2 (12:26→23:28)
[2020-01-30 14:00] VITALS: BP 133/66
[2020-01-30] MEDS ORDERED: FAT EMULSION IV 20% 500 ML IV SCH (18:00)
[2020-01-30] MEDS ORDERED: MULTIVITAMIN -ADULT INJECTION 10 ML, CR/CU/SE/MN/ZN INJ 1 ML in AMINO AC/ELECTROLYTE/DE... IV SCH (18:00)
[2020-01-30] MEDS: SODIUM CHLORIDE 0.9% INJ 10 ML SYR IV SCH (18:08)
--- NOTE | 2020-01-30 19:32 | REP ---
Procedure: PICC line insertion with Damion The procedure was performed under the direct supervision of Dr. Lang. The risks and benefits of the procedure were explained to the patient and informed consent was obtained. The right basilic vein was localized using ultrasound guidance. The skin was prepped and draped in a sterile fashion. 2% lidocaine was used as a local anesthetic. Using ultrasound guidance the basilic vein was cannulated and a 0.018 guidewire was inserted and advanced to the SVC using fluoroscopic guidance. The needle was removed and a 5.5 Salvadorean dilator and peel-away sheath was inserted over the guide wire. A 5.5 Salvadorean dual lumen catheter was cut to length of 38 cm. The dilator was removed and the catheter was inserted over the guide wire with the tip ending in the SVC. The peel-away sheath was removed and the catheter was flushed with heparinized saline as per Hospital protocol. The catheter was affixed to the skin and a sterile dressing was applied. The patient tolerated the procedure well and there were no immediate complications. 0.5 minutes of fluoro time was utilized for this procedure. Electronically Signed by EDGAR Mcdonnell 01/30/2020 04:01 P Electronically Signed by Boris Lang MD 01/30/2020 07:23 P
[2020-01-30 22:00] VITALS: BP 135/71
[2020-01-30] MEDS: risperiDONE 1 MG TAB PO SCH ×2 (23:28→23:30)
[2020-01-31] MEDS: HumaLOG INSULIN (NovoLOG) PER UNIT SC SCH ×4 (00:28→17:41)
[2020-01-31] MEDS: IPRATROPIUM 0.5MG/ALBUTEROL 2.5MG INH SOL UD 3ML (DUONEB)(J7620) NEB SCH ×4 (01:56→19:49)
[2020-01-31 04:33] VITALS: O2SAT 92
[2020-01-31 06:00] VITALS: BP 134/70
[2020-01-31 06:09] LABS: HEMATOCRIT 31.1 % (36.0-47.0); MEAN CORPUSCULAR HEMOGLOBIN 28.1 pg (27.0-33.0); MEAN CORPUSCULAR HGB CONC 32.2 g/dl (32.0-36.5); MEAN CORPUSCULAR VOLUME 87.4 fl (80.0-96.0); PLATELET COUNT, AUTOMATED 279 10^3/uL (150-450); RED BLOOD COUNT 3.56 10^6/uL (4.00-5.40); WHITE BLOOD COUNT 8.1 10^3/uL (4.0-10.0)
[2020-01-31] MEDS: LEVOTHYROXINE 88MCG TABLET (0.088 MG) PO SCH (06:26)
[2020-01-31] MEDS: SODIUM CHLORIDE 0.9% INJ 10 ML SYR IV SCH ×2 (06:27→17:54)
[2020-01-31 06:39] LABS: ALBUMIN 1.8 GM/DL (3.2-5.2); BILIRUBIN,TOTAL 0.3 MG/DL (0.2-1.0); CALCIUM LEVEL 7.2 MG/DL (8.8-10.2); CREATININE FOR GFR 1.08 MG/DL (0.55-1.30); GLOMERULAR FILTRATION RATE 52.8 (>39); TOTAL PROTEIN 4.7 GM/DL (6.4-8.2)
[2020-01-31] MEDS: LACTULOSE 20 GM/30 ML SYRUP UD NG SCH ×2 (08:33→21:57)
[2020-01-31] MEDS: BISACODYL 10 MG SUPP PR SCH ×2 (08:34→17:59)
[2020-01-31] MEDS: METOPROLOL SUCC (TopROL XL) 50MG **XL** TAB PO SCH (08:34)
[2020-01-31] MEDS: SIMVASTATIN 20 MG TAB PO SCH (08:34)
[2020-01-31] MEDS: POTASSIUM CHLORIDE 10 MEQ SR TABLET PO SCH (08:34)
[2020-01-31] MEDS: MIRALAX *UNIT DOSE* 17GM PACKET NG SCH ×2 (08:34→21:57)
[2020-01-31] MEDS: DULoxetine 30 MG CAP (CYMBALTA) PO SCH (08:34)
[2020-01-31] MEDS: oxyBUTYnin 5 MG TAB PO SCH ×2 (08:34→21:58)
[2020-01-31] MEDS: PANTOPRAZOLE 40MG TAB (PROTONIX) PO SCH (08:34)
[2020-01-31] MEDS: ENOXAPARIN 30MG/0.3ML SYRINGE (J1650 PER 10MG) SC SCH (08:35)
[2020-01-31] MEDS: SENOKOT S TAB PO SCH ×2 (08:35→21:58)
[2020-01-31] MEDS: FLEET ENEMA PR SCH (08:38)
--- NOTE | 2020-01-31 13:39 | REP ---
ABDOMINAL SERIES: Supine and erect views of the abdomen and pelvis are performed. No free air is seen. Nasogastric tube is seen. The sideport is just distal to the gastroesophageal junction. Multiple metallic [place] are seen in the midline of the abdomen and pelvis. There is mild diffuse extension of small and large bowel loops with air fluid levels on the upright view. The diffuse distention suggests that this represents an ileus rather than obstruction. There appears to be an ostomy in the left lower quadrant of the abdomen . There are small phleboliths in the pelvis. There are mild degenerative changes of the spine. An accompanying view of the chest demonstrates no acute infiltrate. The heart does not appear to be significantly enlarged. There is a right arm PICC line with the tip in the superior vena cava. Electronically Signed by Boris Lang MD 01/31/2020 04:22 P
[2020-01-31 14:00] VITALS: BP 128/69
[2020-01-31] MEDS ORDERED: AMINO AC/ELECTROLYTE/DEX/CALC 2,000 ML IV SCH (18:00)
[2020-01-31] MEDS ORDERED: FAT EMULSION IV 20% 500 ML IV SCH (18:00)
[2020-01-31 21:00] VITALS: O2SAT 94
[2020-01-31] MEDS: risperiDONE 1 MG/1 ML SOLN ORAL SYRINGE PO SCH (21:58)
[2020-01-31 22:00] VITALS: BP 126/66
[2020-02-01] MEDS: HumaLOG INSULIN (NovoLOG) PER UNIT SC SCH ×4 (00:27→18:00)
[2020-02-01] MEDS: IPRATROPIUM 0.5MG/ALBUTEROL 2.5MG INH SOL UD 3ML (DUONEB)(J7620) NEB SCH ×4 (02:00→19:52)
[2020-02-01] MEDS: LEVOTHYROXINE 88MCG TABLET (0.088 MG) PO SCH (05:46)
[2020-02-01] MEDS: SODIUM CHLORIDE 0.9% INJ 10 ML SYR IV SCH ×2 (05:46→18:16)
[2020-02-01 06:00] VITALS: BP 145/67
[2020-02-01 06:06] LABS: HEMOGLOBIN 9.5 g/dl (12.0-15.5); MEAN CORPUSCULAR HEMOGLOBIN 27.4 pg (27.0-33.0); MEAN CORPUSCULAR HGB CONC 31.7 g/dl (32.0-36.5); MEAN CORPUSCULAR VOLUME 86.5 fl (80.0-96.0); PLATELET COUNT, AUTOMATED 271 10^3/uL (150-450); RED BLOOD COUNT 3.47 10^6/uL (4.00-5.40); WHITE BLOOD COUNT 9.4 10^3/uL (4.0-10.0)
[2020-02-01 06:33] LABS: ALBUMIN 1.8 GM/DL (3.2-5.2); BILIRUBIN,TOTAL 0.3 MG/DL (0.2-1.0); CALCIUM LEVEL 7.5 MG/DL (8.8-10.2); CREATININE FOR GFR 1.03 MG/DL (0.55-1.30); GLOMERULAR FILTRATION RATE 55.8 (>39); TOTAL PROTEIN 4.6 GM/DL (6.4-8.2)
[2020-02-01 09:05] VITALS: O2SAT 97
[2020-02-01] MEDS: LACTULOSE 20 GM/30 ML SYRUP UD NG SCH (09:42)
[2020-02-01] MEDS: DULoxetine 30 MG CAP (CYMBALTA) PO SCH (09:42)
[2020-02-01] MEDS: SENOKOT S TAB PO SCH ×2 (09:42→21:30)
[2020-02-01] MEDS: oxyBUTYnin 5 MG TAB PO SCH ×2 (09:42→21:30)
[2020-02-01] MEDS: ENOXAPARIN 30MG/0.3ML SYRINGE (J1650 PER 10MG) SC SCH (09:42)
[2020-02-01] MEDS: POTASSIUM CHLORIDE 10 MEQ SR TABLET PO SCH (09:42)
[2020-02-01] MEDS: SIMVASTATIN 20 MG TAB PO SCH (09:42)
[2020-02-01] MEDS: PANTOPRAZOLE 40MG TAB (PROTONIX) PO SCH (09:43)
[2020-02-01] MEDS: METOPROLOL SUCC (TopROL XL) 50MG **XL** TAB PO SCH (09:44)
[2020-02-01] MEDS: MIRALAX *UNIT DOSE* 17GM PACKET NG SCH (10:29)
--- NOTE | 2020-02-01 12:30 | IPNPDOC ---
Text Note Date of Service The patient was seen on 02/01/20. NOTE rectal perforation s/p sigmoid colectomy and colostomy 10 days postop postop ileus improving ngt is clogged,I will d.c . it for now. continue with laxatives. VS,Fishbone, I+O VS, Fishbone, I+O Laboratory Tests 02/01/20 05:29 Vital Signs Date Time Temp Pulse Resp B/P (MAP) Pulse Ox O2 Delivery O2 Flow Rate FiO2 02/01/20 09:44 93 140/74 02/01/20 06:00 97.1 16 94 Room Air I&O- Last 24 Hours up to 6 AM 02/01/20 06:00 Intake Total 3581 ml Output Total 1250 ml Balance 2331 ml ROSETTA LONGO MD Feb 01, 2020 12:30
[2020-02-01 14:00] VITALS: BP 136/66
[2020-02-01] MEDS ORDERED: FAT EMULSION IV 20% 500 ML IV SCH (18:00)
[2020-02-01] MEDS ORDERED: AMINO AC/ELECTROLYTE/DEX/CALC 2,000 ML IV SCH (18:00)
[2020-02-01 21:00] VITALS: O2SAT 95
[2020-02-01] MEDS: risperiDONE 1 MG/1 ML SOLN ORAL SYRINGE PO SCH (21:34)
[2020-02-01] MEDS: LACTULOSE 20 GM/30 ML SYRUP UD PO SCH (21:52)
[2020-02-01] MEDS: MIRALAX *UNIT DOSE* 17GM PACKET PO SCH (21:52)
[2020-02-01 22:00] VITALS: BP 120/90
[2020-02-02] MEDS: HumaLOG INSULIN (NovoLOG) PER UNIT SC SCH ×5 (00:28→23:45)
[2020-02-02] MEDS: IPRATROPIUM 0.5MG/ALBUTEROL 2.5MG INH SOL UD 3ML (DUONEB)(J7620) NEB SCH ×4 (02:00→19:56)
[2020-02-02] MEDS: LEVOTHYROXINE 88MCG TABLET (0.088 MG) PO SCH (05:46)
[2020-02-02] MEDS: SODIUM CHLORIDE 0.9% INJ 10 ML SYR IV SCH ×2 (05:46→17:36)
[2020-02-02 06:00] VITALS: BP 125/79
[2020-02-02 06:15] LABS: HEMATOCRIT 31.5 % (36.0-47.0); HEMOGLOBIN 10.3 g/dl (12.0-15.5); MEAN CORPUSCULAR HEMOGLOBIN 28.3 pg (27.0-33.0); MEAN CORPUSCULAR HGB CONC 32.7 g/dl (32.0-36.5); MEAN CORPUSCULAR VOLUME 86.5 fl (80.0-96.0); PLATELET COUNT, AUTOMATED 276 10^3/uL (150-450); RED BLOOD COUNT 3.64 10^6/uL (4.00-5.40); WHITE BLOOD COUNT 8.3 10^3/uL (4.0-10.0)
[2020-02-02 06:40] LABS: BILIRUBIN,TOTAL 0.4 MG/DL (0.2-1.0); CALCIUM LEVEL 8.3 MG/DL (8.8-10.2); CREATININE FOR GFR 1.06 MG/DL (0.55-1.30); GLOMERULAR FILTRATION RATE 53.9 (>39); POTASSIUM SERUM 3.9 MEQ/L (3.5-5.1); TOTAL PROTEIN 5.5 GM/DL (6.4-8.2)
[2020-02-02] MEDS: DULoxetine 30 MG CAP (CYMBALTA) PO SCH (08:42)
[2020-02-02] MEDS: MIRALAX *UNIT DOSE* 17GM PACKET PO SCH ×2 (08:42→20:38)
[2020-02-02] MEDS: oxyBUTYnin 5 MG TAB PO SCH ×2 (08:42→20:38)
[2020-02-02] MEDS: LACTULOSE 20 GM/30 ML SYRUP UD PO SCH ×2 (08:42→20:38)
[2020-02-02] MEDS: SIMVASTATIN 20 MG TAB PO SCH (08:42)
[2020-02-02] MEDS: ENOXAPARIN 30MG/0.3ML SYRINGE (J1650 PER 10MG) SC SCH (08:42)
[2020-02-02] MEDS: SENOKOT S TAB PO SCH ×2 (08:42→20:38)
[2020-02-02] MEDS: POTASSIUM CHLORIDE 10 MEQ SR TABLET PO SCH (08:42)
[2020-02-02] MEDS: METOPROLOL SUCC (TopROL XL) 50MG **XL** TAB PO SCH (08:43)
[2020-02-02] MEDS: PANTOPRAZOLE 40MG TAB (PROTONIX) PO SCH (08:43)
[2020-02-02 14:00] VITALS: BP 116/73
[2020-02-02 22:00] VITALS: BP 126/75
[2020-02-02 22:04] VITALS: O2SAT 96
[2020-02-03] MEDS: IPRATROPIUM 0.5MG/ALBUTEROL 2.5MG INH SOL UD 3ML (DUONEB)(J7620) NEB SCH ×4 (01:15→19:49)
[2020-02-03 06:00] VITALS: BP 118/70
[2020-02-03] MEDS: HumaLOG INSULIN (NovoLOG) PER UNIT SC SCH ×3 (06:00→17:06)
[2020-02-03] MEDS: LEVOTHYROXINE 88MCG TABLET (0.088 MG) PO SCH (06:08)
[2020-02-03] MEDS: SODIUM CHLORIDE 0.9% INJ 10 ML SYR IV SCH ×2 (06:08→17:15)
[2020-02-03] MEDS: SODIUM CHLORIDE 0.9% INJ 10 ML SYR IV PRN (06:09)
[2020-02-03 07:04] LABS: BILIRUBIN,TOTAL 0.4 MG/DL (0.2-1.0); CALCIUM LEVEL 7.8 MG/DL (8.8-10.2); CREATININE FOR GFR 0.97 MG/DL (0.55-1.30); GLOMERULAR FILTRATION RATE 59.8 (>39); POTASSIUM SERUM 4.4 MEQ/L (3.5-5.1)
[2020-02-03 07:11] LABS: HEMATOCRIT 29.6 % (36.0-47.0); HEMOGLOBIN 9.5 g/dl (12.0-15.5); MEAN CORPUSCULAR HEMOGLOBIN 27.7 pg (27.0-33.0); MEAN CORPUSCULAR HGB CONC 32.1 g/dl (32.0-36.5); MEAN CORPUSCULAR VOLUME 86.3 fl (80.0-96.0); PLATELET COUNT, AUTOMATED 265 10^3/uL (150-450); RED BLOOD COUNT 3.43 10^6/uL (4.00-5.40); WHITE BLOOD COUNT 7.1 10^3/uL (4.0-10.0)
--- NOTE | 2020-02-03 07:52 | IPNPDOC ---
Text Note Date of Service The patient was seen on 02/02/20. NOTE No acute events over the weekend. Pain is minimal. She has some liquid stool in the bag. Xray still shows partial obstruction, but she is tolerating clq diet with the NGT out. VSSAF NAD abd - soft, TTP appropriate, incisions c/d/i, ostomy is pink with air and liquid stool in bag A) 74y/o female with rectal perforation likely secondary to constipation BRIDGETTE due to dehydration resolved P) ambulate ostomy teaching enemas through ostomy along with suppositories miralax and lactulose PO homecare TPN ends tonight will advance diet tomorrow if tolerating Collins Garcia DO VS,Fishlaineye, I+O VS, Teodorobone, I+O Laboratory Tests 02/03/20 06:06 Vital Signs Date Time Temp Pulse Resp B/P (MAP) Pulse Ox O2 Delivery O2 Flow Rate FiO2 02/03/20 06:00 98.4 79 18 118/70 (86) 96 Room Air I&O- Last 24 Hours up to 6 AM 02/03/20 06:00 Intake Total 1620 ml Output Total 1750 ml Balance -130 ml MADI GARCIA DO Feb 03, 2020 07:52
--- NOTE | 2020-02-03 07:54 | IPNPDOC ---
Text Note Date of Service The patient was seen on 02/03/20. NOTE No acute events over night. Pain is minimal. She has some stool in bag. Radha ating the liquid diet without any nausea or emesis. Stool ouput was great yesterday with over 1500 out. VSSAF NAD abd - soft, TTP appropriate, incisions c/d/i, ostomy is pink with air and stool in bag labs - below A) 74y/o female with rectal perforation likely secondary to constipation BRIDGETTE due to dehydration resolved P) ambulate ostomy teaching miralax and lactulose PO set up homecare PICC line reg diet plan for d/c home tomorrow if tolerating diet Collins Garcia DO VS,Fishbone, I+O VS, Fishbone, I+O Laboratory Tests 02/03/20 06:06 Vital Signs Date Time Temp Pulse Resp B/P (MAP) Pulse Ox O2 Delivery O2 Flow Rate FiO2 02/03/20 06:00 98.4 79 18 118/70 (86) 96 Room Air I&O- Last 24 Hours up to 6 AM 02/03/20 06:00 Intake Total 1620 ml Output Total 1750 ml Balance -130 ml MADI GARCIA DO Feb 03, 2020 07:54
[2020-02-03] MEDS: POTASSIUM CHLORIDE 10 MEQ SR TABLET PO SCH (10:35)
[2020-02-03] MEDS: ENOXAPARIN 30MG/0.3ML SYRINGE (J1650 PER 10MG) SC SCH (10:35)
[2020-02-03] MEDS: MIRALAX *UNIT DOSE* 17GM PACKET PO SCH ×2 (10:37→21:38)
[2020-02-03] MEDS: oxyBUTYnin 5 MG TAB PO SCH ×2 (10:38→21:38)
[2020-02-03] MEDS: SIMVASTATIN 20 MG TAB PO SCH (10:38)
[2020-02-03] MEDS: METOPROLOL SUCC (TopROL XL) 50MG **XL** TAB PO SCH (10:39)
[2020-02-03] MEDS: DULoxetine 30 MG CAP (CYMBALTA) PO SCH (10:39)
[2020-02-03] MEDS: PANTOPRAZOLE 40MG TAB (PROTONIX) PO SCH (10:39)
[2020-02-03] MEDS: SENOKOT S TAB PO SCH ×2 (10:39→21:38)
[2020-02-03] MEDS: LACTULOSE 20 GM/30 ML SYRUP UD PO SCH ×2 (10:40→21:37)
[2020-02-03 12:08] VITALS: O2SAT 99
[2020-02-03 14:00] VITALS: BP 132/66
[2020-02-03] MEDS ORDERED: HumaLOG INSULIN (NovoLOG) PER UNIT SC SCH (21:00)
[2020-02-03 22:00] VITALS: BP 104/60
[2020-02-04] MEDS: IPRATROPIUM 0.5MG/ALBUTEROL 2.5MG INH SOL UD 3ML (DUONEB)(J7620) NEB SCH ×3 (00:22→13:59)
[2020-02-04] MEDS: SODIUM CHLORIDE 0.9% INJ 10 ML SYR IV SCH (05:58)
[2020-02-04] MEDS: LEVOTHYROXINE 88MCG TABLET (0.088 MG) PO SCH (05:58)
[2020-02-04] MEDS: SODIUM CHLORIDE 0.9% INJ 10 ML SYR IV PRN (05:58)
[2020-02-04] MEDS: ACETAMINOPHEN TAB 650MG DOSE (2X325MG) PO PRN (05:58)
[2020-02-04 06:00] VITALS: BP 103/55
[2020-02-04 06:31] LABS: HEMATOCRIT 31.5 % (36.0-47.0); MEAN CORPUSCULAR HEMOGLOBIN 27.8 pg (27.0-33.0); MEAN CORPUSCULAR HGB CONC 31.7 g/dl (32.0-36.5); MEAN CORPUSCULAR VOLUME 87.5 fl (80.0-96.0); PLATELET COUNT, AUTOMATED 295 10^3/uL (150-450); WHITE BLOOD COUNT 6.3 10^3/uL (4.0-10.0)
[2020-02-04 07:00] LABS: ALBUMIN 2.1 GM/DL (3.2-5.2); BILIRUBIN,TOTAL 0.5 MG/DL (0.2-1.0); CALCIUM LEVEL 7.6 MG/DL (8.8-10.2); CREATININE FOR GFR 1.15 MG/DL (0.55-1.30); GLOMERULAR FILTRATION RATE 49.1 (>39); POTASSIUM SERUM 4.6 MEQ/L (3.5-5.1); TOTAL PROTEIN 5.3 GM/DL (6.4-8.2)
--- NOTE | 2020-02-04 08:04 | IPNPDOC ---
Text Note Date of Service The patient was seen on 02/04/20. NOTE No acute events over night. Pain is minimal. She has some stool in bag. Radha ating the regular diet without any nausea or emesis. She is tolerating PT well, but not ready to go home yet. Plan for rehab soon. VSSAF NAD abd - soft, TTP appropriate, incisions c/d/i, ostomy is pink with air and stool in bag labs - below A) 74y/o female with rectal perforation likely secondary to constipation BRIDGETTE due to dehydration resolved P) ambulate ostomy teaching miralax and lactulose PO set up homecare PICC line dc reg diet plan for d/c to rehab today Collins Garcia DO VS,Andrew, I+O VS, Andrew, I+O Laboratory Tests 02/04/20 06:10 Vital Signs Date Time Temp Pulse Resp B/P (MAP) Pulse Ox O2 Delivery O2 Flow Rate FiO2 02/04/20 06:00 98.7 76 18 103/55 (71) 95 Room Air I&O- Last 24 Hours up to 6 AM 02/04/20 06:00 Intake Total 980 ml Output Total 575 ml Balance 405 ml MADI GARCIA DO Feb 04, 2020 08:04
[2020-02-04] MEDS: DULoxetine 30 MG CAP (CYMBALTA) PO SCH (08:39)
[2020-02-04] MEDS: ENOXAPARIN 30MG/0.3ML SYRINGE (J1650 PER 10MG) SC SCH (08:39)
[2020-02-04] MEDS: MIRALAX *UNIT DOSE* 17GM PACKET PO SCH (08:39)
[2020-02-04] MEDS: LACTULOSE 20 GM/30 ML SYRUP UD PO SCH (08:39)
[2020-02-04 08:40] VITALS: BP 102/56
[2020-02-04] MEDS: METOPROLOL SUCC (TopROL XL) 50MG **XL** TAB PO SCH (08:40)
[2020-02-04] MEDS: SIMVASTATIN 20 MG TAB PO SCH (08:40)
[2020-02-04] MEDS: POTASSIUM CHLORIDE 10 MEQ SR TABLET PO SCH (08:40)
[2020-02-04] MEDS: SENOKOT S TAB PO SCH (08:40)
[2020-02-04] MEDS: PANTOPRAZOLE 40MG TAB (PROTONIX) PO SCH (08:40)
[2020-02-04] MEDS: oxyBUTYnin 5 MG TAB PO SCH (08:40)
[2020-02-04] MEDS: HumaLOG INSULIN (NovoLOG) PER UNIT SC SCH ×2 (08:41→12:35)
[2020-02-04 14:00] VITALS: BP 109/62
[2020-02-04] MEDS ORDERED: HYDR-3715 PO (15:46)
[2020-02-04] MEDS ORDERED: Lactulose Syrup PO (15:46)
[2020-02-04] MEDS ORDERED: PEG1POW PO (15:46)
[2020-02-04] MEDS ORDERED: LACT10SO29 PO (17:53)
[2020-02-04] MEDS ORDERED: HYDR-3713 PO (17:53)
[2020-02-04] MEDS ORDERED: MIRA3350 PO (17:53)
--- NOTE | 2020-02-05 20:30 | DSES ---
DATE OF ADMISSION: 01/22/2020 DATE OF DISCHARGE: 02/04/2020 ADMISSION DIAGNOSES: Constipation. Perforated viscus. Acute renal injury. DISCHARGE DIAGNOSES: Constipation. Perforated viscus. Acute renal injury. HOSPITAL COURSE: The patient is a 74-year female, presented to the emergency room with leukocytosis, abdominal pain, nausea, vomiting, as well as abnormal elevated creatinine. CT scan was obtained that showed free air in the abdomen. Recommendation was to proceed with emergent surgery. She was brought back to the operating room in the middle of the night for exploratory laparotomy, found to have a perforation of her anterior rectum, it is very distal and due to the severe constipation, her entire abdomen was full very dilated loops of hard stool. It was very difficult to mobilize to be able to reach down into the pelvis to do resection of the perforation. I was able to dissect just about to the rectosigmoid junction. However, I was still about 4 cm too proximal to be able to get to the perforation, but I was able to transect there and do a diverting sigmoid colostomy. Once that was completed, the abdomen was washed out, drains placed, and she was sent to the floor in stable condition. Postoperatively, she did well, minimal pain, labs improved quickly. She started to tolerate a diet, but then she started to have persistent nausea and vomiting and difficulty tolerating a diet. She has had extensive laxatives throughout her stay, multiple bottles of mag citrate, Golytely, laxatives both oral and through the colostomy stump twice a day. Finally gotten her to the point where she was passing a large volume of stool and tolerating a regular diet. Plan is to discharge her to rehab today. She is able to walk up and down 3 steps by herself, but she has 10 steps to get into her house. Therefore, she is a good candidate to be sent over to acute rehab. She has been accepted over there and will be sent over there today. Once that is completed, she will be sent home. She can follow up with me in the office in a couple weeks. All of her questions are answered. As long as she has good resolution of her constipation, then she can possibly be reversed in about 6 month after a followup colonoscopy to make sure there is no other cause for her perforation.
== END 2020-02-04 16:43 | DRG 330 ==
LOC: M ED INP 04:18 → M MSPAV 09:40
PROVIDERS: ADMIT Surgery; ATTEND Surgery
PROC: 0DBN0ZZ Excision of Sigmoid Colon, Open Approach (ICD-10-PCS; 2020-01-22)
PROC: 0D1N0Z4 Bypass Sigmoid Colon to Cutaneous, Open Approach (ICD-10-PCS; principal; 2020-01-22 04:00)
PROC: 02HV33Z Insertion of Infusion Device into Superior Vena Cava, Percutaneous Approach (ICD-10-PCS; 2020-01-30)
DX: K63.1 Perforation of intestine (nontraumatic) (principal); N17.9 Acute kidney failure, unspecified; K91.89 Other postprocedural complications and disorders of digestive system; D72.829 Elevated white blood cell count, unspecified; K59.00 Constipation, unspecified; E03.9 Hypothyroidism, unspecified; I10 Essential (primary) hypertension; E11.9 Type 2 diabetes mellitus without complications; Z86.73 Personal history of transient ischemic attack (TIA), and cerebral infarction without residual deficits; F32.9 Major depressive disorder, single episode, unspecified; F41.9 Anxiety disorder, unspecified; Z79.82 Long term (current) use of aspirin; Z79.899 Other long term (current) drug therapy; E66.01 Morbid (severe) obesity due to excess calories; E86.0 Dehydration

== ENCOUNTER 2020-02-04 11:46 | Inpatient (IN) | payer MEDICARE, MEDICAID ==
[~2020-02-04] VITALS: Ht 154.9 cm; Wt 95.5 kg
[~2020-02-04 11:46] MED LIST: ASPI-527 PO; CALCTAB89 PO; DULO1CAP5 PO; LEVO88TA3 PO; LISI20TA19 PO; METO1TAB7 PO; OXYB5TAB10 PO; POTA1TAB23 PO; RISP1TAB3 PO; SIMV20TA22 PO
[2020-02-04] MEDS ORDERED: DEXTROSE 50% 50 ML SYRINGE IV PRN (14:00)
[2020-02-04] MEDS ORDERED: ALBUTEROL SULFATE 2.5 MG/0.5 ML INH NEB SOLN NEB PRN (14:00)
[2020-02-04] MEDS ORDERED: oxyCODONE 5MG TAB PO PRN (14:00)
[2020-02-04] MEDS ORDERED: GLUCAGON INJ 1MG VIAL SC PRN (14:00)
[2020-02-04] MEDS ORDERED: ACETAMINOPHEN TAB 650MG DOSE (2X325MG) PO PRN (14:00)
[2020-02-04] MEDS ORDERED: GLUCOSE 4GM CHEW TABLET PO PRN (14:00)
[2020-02-04] MEDS ORDERED: HYDR-3715 PO (15:46)
[2020-02-04] MEDS ORDERED: Lactulose Syrup PO (15:46)
[2020-02-04] MEDS ORDERED: PEG1POW PO (15:46)
[2020-02-04 16:50] VITALS: BP 120/62
[2020-02-04] MEDS ORDERED: NYSTATIN 100,000 UNITS/GM TOPICAL PWD 15 GM TOP SCH (17:00)
[2020-02-04] MEDS ORDERED: PILL CUTTER 1 EACH XX PRN (17:30)
[2020-02-04] MEDS: HumaLOG INSULIN (NovoLOG) PER UNIT SC SCH ×2 (17:47→20:37)
[2020-02-04] MEDS ORDERED: MIRA3350 PO (17:53)
[2020-02-04] MEDS ORDERED: LACT10SO29 PO (17:53)
[2020-02-04] MEDS ORDERED: HYDR-3713 PO (17:53)
[2020-02-04 20:00] VITALS: BP 115/59
[2020-02-04] MEDS: IPRATROPIUM 0.5MG/ALBUTEROL 2.5MG INH SOL UD 3ML (DUONEB)(J7620) NEB SCH (20:32)
[2020-02-04] MEDS: oxyBUTYnin 5 MG TAB PO SCH (20:40)
[2020-02-04] MEDS: LACTULOSE 20 GM/30 ML SYRUP UD PO SCH (20:40)
[2020-02-04] MEDS: REMEDY PHYTOPLEX Z-GUARD PASTE 113GM TUBE (FROM STOREROOM PRODUCT) TOP SCH (20:40)
[2020-02-04] MEDS: SENOKOT S TAB PO SCH (20:40)
[2020-02-04] MEDS ORDERED: fentaNYL 100 MCG/2 ML INJECTION (J3010) As Ordered ONE ×2 (22:16→22:31)
[2020-02-04] MEDS ORDERED: dexameTHASONE 4 MG/ML 1ML VIAL (J1100 PER 1MG) As Ordered ONE (22:16)
[2020-02-04] MEDS ORDERED: MIDAZOLAM INJ 2MG/2ML VIAL (J2250 PER 1MG) As Ordered ONE (22:16)
[2020-02-04] MEDS ORDERED: ONDANSETRON 4MG/2ML VIAL As Ordered ONE (22:16)
[2020-02-04] MEDS ORDERED: LIDOCAINE 2% 100MG/5ML SDV (FOR ANES.) As Ordered ONE (22:16)
[2020-02-04] MEDS ORDERED: propofoL 200 MG/20 ML VIAL As Ordered ONE (22:16)
[2020-02-04] MEDS ORDERED: ROCURONIUM BROMIDE 50 MG/5 ML VIAL As Ordered ONE (22:16)
[2020-02-04] MEDS ORDERED: SUGAMMADEX SODIUM 500 MG/5 ML VIAL (BRIDION) As Ordered ONE (22:37)
[2020-02-04] MEDS ORDERED: ePHEDrine SULFATE 25 MG/5 ML(5MG/ML) SYRINGE As Ordered ONE (22:59)
[2020-02-05 06:00] VITALS: BP 128/64
[2020-02-05] MEDS: LEVOTHYROXINE 88MCG TABLET (0.088 MG) PO SCH (06:39)
[2020-02-05 06:48] LABS: BASO % 0.5 % (0.0-1.0); EOS # 0.3 10^3/uL (0.0-0.5); EOS % 4.7 % (0.0-3.0); HEMATOCRIT 29.2 % (36.0-47.0); HEMOGLOBIN 9.2 g/dl (12.0-15.5); LYMPH # 1.5 10^3/uL (1.5-5.0); LYMPH % 24.3 % (24.0-44.0); MEAN CORPUSCULAR HEMOGLOBIN 27.5 pg (27.0-33.0); MEAN CORPUSCULAR HGB CONC 31.5 g/dl (32.0-36.5); MEAN CORPUSCULAR VOLUME 87.4 fl (80.0-96.0); MONO # 0.5 10^3/uL (0.0-0.8); MONO % 8.2 % (0.0-5.0); NEUTROPHILS # 3.7 10^3/uL (1.5-8.5); NEUTROPHILS % 61.5 % (36.0-66.0); PLATELET COUNT, AUTOMATED 259 10^3/uL (150-450); RED BLOOD COUNT 3.34 10^6/uL (4.00-5.40)
[2020-02-05 07:17] LABS: ALBUMIN 1.9 GM/DL (3.2-5.2); BILIRUBIN,TOTAL 0.2 MG/DL (0.2-1.0); CALCIUM LEVEL 7.6 MG/DL (8.8-10.2); CREATININE FOR GFR 1.09 MG/DL (0.55-1.30); GLOMERULAR FILTRATION RATE 52.2 (>39); POTASSIUM SERUM 4.3 MEQ/L (3.5-5.1); TOTAL PROTEIN 4.9 GM/DL (6.4-8.2)
[2020-02-05] MEDS: IPRATROPIUM 0.5MG/ALBUTEROL 2.5MG INH SOL UD 3ML (DUONEB)(J7620) NEB SCH ×3 (07:20→18:09)
[2020-02-05] MEDS: HumaLOG INSULIN (NovoLOG) PER UNIT SC SCH ×4 (07:30→21:00)
[2020-02-05] MEDS: REMEDY PHYTOPLEX Z-GUARD PASTE 113GM TUBE (FROM STOREROOM PRODUCT) TOP SCH ×3 (09:00→21:00)
[2020-02-05] MEDS: SIMVASTATIN 20 MG TAB PO SCH (09:09)
[2020-02-05] MEDS: POTASSIUM CHLORIDE 10 MEQ SR TABLET PO SCH (09:09)
[2020-02-05] MEDS: PANTOPRAZOLE 40MG TAB (PROTONIX) PO SCH (09:09)
[2020-02-05] MEDS: LACTULOSE 20 GM/30 ML SYRUP UD PO SCH ×2 (09:09→21:02)
[2020-02-05] MEDS: SENOKOT S TAB PO SCH ×2 (09:09→21:02)
[2020-02-05] MEDS: DULoxetine 30 MG CAP (CYMBALTA) PO SCH (09:09)
[2020-02-05] MEDS: oxyBUTYnin 5 MG TAB PO SCH ×2 (09:09→21:02)
[2020-02-05] MEDS: ENOXAPARIN 40MG/0.4ML SYRINGE (J1650 PER 10MG) SC SCH (09:10)
[2020-02-05] MEDS: METOPROLOL SUCC (TopROL XL) 50MG **XL** TAB PO SCH (09:10)
--- NOTE | 2020-02-05 13:45 | HPEPDOC ---
Agricultural Sciences Professor Note DATE OF ADMISSION: 02/04/20 DATE OF SERVICE: 02/04/20 TIME OF ADMISSION: Please refer to physician's admission order. SOURCE OF ADMISSION INFORMATION: [facility] record and patient CHIEF COMPLAINT: s/p colostomy for perforated rectum HISTORY OF PRESENT ILLNESS: 74F pmh HTN. Hypothyroidism, DM, TIA who presented to [facility] ED on 01-22-20 from [facility] with abdominal pain and was admitted for perforated bowel. She underwent an ex-lap with abdominal washout, sigmoid resection, with colostomy placement for post-op diagnosis of perforated rectum thought to be due to chronic constipation. She was treated with IV antibiotics, placed on TPN, t hen gradually had her diet advanced to regular solids with aggressive bowel regimen. She had good ostomy output, was evaluated by therapy and noted to have impairments in mobility and ADLs that would impede her from going home alone and deemed medically appropriate for discharge to ARU on 02-04-20. REVIEW OF SYSTEMS: The following is a completed review of systems and has been reviewed. Review of systems otherwise unremarkable. PAIN: Patient self reports no pain EYES: No recent vision changes EARS, NOSE, & THROAT: No throat pain, or dysphagia, or rhinorrhea CARDIOVASCULAR: Denies chest pain or palpitations PULMONARY: Denies shortness of breath GASTROINTESTINAL: +colostomy GENITOURINARY: denies dysuria MUSCULOSKELETAL: generalized weakness NEUROLOGICAL:no paresthesias HEMATOLOGICAL: denies easy bruising SKIN: abdominal incision PSYCHIATRIC: Unremarkable All other review of systems found to be negative. PAST MEDICAL HISTORY: as per HPI PAST SURGICAL HISTORY: Thyroid radiation, umbilical hernia repair ALLERGIES: Please see below. MEDICATIONS: Please see below. SOCIAL HISTORY: no etoh/illicit drugs/smoking DIET: consistent carbs PHYSICAL EXAMINATION: VITAL SIGNS: Please see below. GENERAL: Pleasant and cooperative. No acute distress. +obese HEENT: PERRL. Extraocular movements intact. Clear conjunctiva CARDIOVASCULAR: Regular rate and rhythm. No murmurs, rubs, or gallops LUNGS: Clear to auscultation bilaterally. No wheezes. No rhonchi ABDOMEN: Soft, nontender, nondistended. Positive bowel sounds. Normal active bowel sounds, +loose stool colostomy output NEUROLOGICAL: Alert and oriented times three. Cranial nerves II through XII gr ossly intact. Sensation grossly intact EXTREMITIES: 5\5 strength bilateral upper extremities. 5\5 strength right lower extremity. 5/5 strength in left lower extremity. SKIN: + abdominal incision with mild erythema (no induration) LABORATORY DATA: Please see below. IMAGING: Imaging documentation personally reviewed by record FUNCTIONAL STATUS: Premorbid: Independent with all activities of daily life as well as mobility On Admission: Standby assist for ambulation and toileting, contact guard for stairs, min assist for colostomy care GOALS: Independent for community ambulation, stairs, functional transfers, dressing, bathing, colostomy care, laundry/meal prep ASSESSMENT:74-year-old F with past medical history of HTN, hypothyroidism who presents status post colostomy for perforated rectum PLAN: 1. Rehab- PT/OT advance gait and ADL training, strengthen/stretch/maintain ROM all 4 limbs, dynamic balance training without AD, fall recovery, colostomy care 2. Neuro: no active issue 3. CArdiac: hx of HTN c/u metoprolol -HLD c/u statin, medicine consulted to assist in overall management 4. Resp: encourage incentive spirometry, monitor for infection -c/u Duonebs 5. GI: s/p perforated colon with sigmoid resection and colostomy, on regular diet, c/u bowel meds, surgery consulted -[place] to be removed 02-05-20 6. Endo: hx of hypothyroidism, c/u Synthroid -hx of DM? patient on ISS and consistent Carb diet 7. DVT ppx: Lovenox and teds 8. : c/u Ditropan, monitor bladder scans 9. Psych: c/u Cymbalta 10. Pain: Tylenol and oxycodone prn 11. Dispo: TBD POST ADMISSION PHYSICIAN EVALUATION: Medical and functional status: Description of medical status, medical assessment: As above. Rehabilitation diagnosis and current and prior cold morbid medical conditions as above. Risk of complications and plans to mitigate them as above. Description of functional status current status is as above. Prior status as above. Status compared to preadmission: There are no clinically significant differences between the patient's current status and the information described on the preadmission screening document. Treatment plan anticipated: Treatment plan is as described above. Required disciplines including physical therapy, occupational therapy, others as noted above. Intensity of services: 3 hours a day, 6 days a week. Special considerations: There are no specific special or safety considerations that would likely preclude immediate implementation of an intensive rehabilitation program or subsequently influence the plan of care. ATTESTATION: Considering all the information above, it is my best judgment that this patient requires intensive rehabilitation therapy as described above and an inpatient hospital environment due to the complexity of nursing, medical, and rehabilitation needs required by the patient. Furthermore, this patient can reasonably be expected to participate in an benefit from an inpatient rehabilitation stay with an interdisciplinary team approach to the delivery of rehabilitation care under the direction and supervision of rehabilitation physician. PROGNOSIS: Excellent ESTIMATED LENGTH OF STAY:7-10 days. PROJECTED DISCHARGE DESTINATION: Home with family support and any durable medical equipment required to increase functional safety and mobility. TIME SPENT COUNSELING AND COORDINATING INITIAL CARE: Greater than 70 minutes. Vital Signs Vital Sign - Last 24 Hours 02/04/20 02/04/20 02/05/20 02/05/20 16:50 20:00 06:00 09:10 Temp 97.4 97.9 96.9 Pulse 70 75 80 89 Resp 20 18 18 B/P (MAP) 120/62 (81) 115/59 (77) 128/64 (85) 130/72 Pulse Ox 98 98 95 O2 Delivery Room Air Room Air Room Air Laboratory Data CBC/BMP Laboratory Tests 02/05/20 06:35 Labs 24H Laboratory Tests 2 02/04/20 17:11: Bedside Glucose (Misc Panel) 120H 02/04/20 19:58: Bedside Glucose (Misc Panel) 134H 02/05/20 06:35: Immature Granulocyte % (Auto) 0.8, Neutrophils (%) (Auto) 61.5, Lymphocytes (%) (Auto) 24.3, Monocytes (%) (Auto) 8.2H, Eosinophils (%) (Auto) 4.7H, Basophils (%) (Auto) 0.5, Neutrophils # (Auto) 3.7, Lymphocytes # (Auto) 1.5, Monocytes # (Auto) 0.5, Eosinophils # (Auto) 0.3, Basophils # (Auto) 0.0, Nucleated Red Blood Cells % (auto) 0.0, Anion Gap 5L, Glomerular Filtration Rate 52.2, Calcium Level 7.6L, Total Bilirubin 0.2#, Aspartate Amino Transf (AST/SGOT) 20, Alanine Aminotransferase (ALT/SGPT) 18, Alkaline Phosphatase 77, Total Protein 4.9L, Albumin 1.9L, Albumin/Globulin Ratio 0.63L 02/05/20 06:41: Bedside Glucose (Misc Panel) 118H 02/05/20 11:38: Bedside Glucose (Misc Panel) 93 FSBS Laboratory Tests Test 02/04/20 17:11 02/04/20 19:58 02/05/20 06:41 02/05/20 11:38 Range/Units Bedside Glucose (Misc Panel) 120 134 118 93 83-110 MG/DL Home Medications Scheduled Aspirin (Aspirin EC) 325 Mg Tablet.dr, 325 MG PO DAILY, (Reported) Calcium Carbonate (Calcium) 600 Mg Tablet, 600 MG PO BID, (Reported) Duloxetine Hcl (Duloxetine HCl) 30 Mg Capsule.dr, 30 MG PO DAILY, (Reported) Lactulose (Lactulose) 10 Gm/15 Ml Solution, 30 ML PO BID, (Reported) Levothyroxine Sodium (Levothyroxine Sodium) 88 Mcg Tablet, 88 MCG PO QAM, (Reported) Lisinopril/Hydrochlorothiazide (Lisinopril-Hctz 20-12.5 mg Tab) 1 Each Tablet, 1 TAB PO DAILY, (Reported) Metoprolol Succinate (Metoprolol Succinate) 50 Mg Tab.er.24h, 50 MG PO DAILY, (Reported) Oxybutynin Chloride (Oxybutynin Chloride) 5 Mg Tablet, 5 MG PO BID, (Reported) Polyethylene Glycol 3350 (Miralax) 119 Gm Powder, 17 GM PO BID, (Reported) Potassium Chloride (Potassium Chloride) 10 Meq Tablet.er, 10 MEQ PO DAILY, (Reported) Risperidone (Risperidone) 1 Mg Tablet, 1 MG PO QHS, (Reported) Simvastatin (Simvastatin) 20 Mg Tablet, 20 MG PO DAILY, (Reported) Scheduled PRN Hydrocodone/Acetaminophen (Hydrocodone-Acetamin 5-325 mg) 1 Each Tablet, 1 TAB PO Q6H PRN for PAIN, (Reported) Allergies Coded Allergies: No Known Allergies (Unverified , 01/22/20) A-FIB/CHADSVASC A-FIB History Current/History of A-Fib/PAF?: No AILYN PATEL MD Feb 05, 2020 13:45
--- NOTE | 2020-02-05 13:46 | IPNPDOC ---
PM&R Progress Note DATE OF SERVICE: Feb 05, 2020 Certified Nurse Practitioner Progress Note Subjective: Patient seen in her room following a shower, stating she feels well and getting steady on her feet. REVIEW OF SYSTEMS: The following is a completed review of systems and has been reviewed. Review of systems otherwise unremarkable. PAIN: Patient self reports no pain EYES: No recent vision changes EARS, NOSE, & THROAT: No throat pain, or dysphagia, or rhinorrhea CARDIOVASCULAR: Denies chest pain or palpitations PULMONARY: Denies shortness of breath GASTROINTESTINAL: +colostomy GENITOURINARY: denies dysuria MUSCULOSKELETAL: generalized weakness NEUROLOGICAL:no paresthesias HEMATOLOGICAL: denies easy bruising SKIN: abdominal incision PSYCHIATRIC: Unremarkable All other review of systems found to be negative. PHYSICAL EXAMINATION: VITAL SIGNS: Please see below. GENERAL: Pleasant and cooperative. No acute distress. +obese HEENT: PERRL. Extraocular movements intact. Clear conjunctiva CARDIOVASCULAR: Regular rate and rhythm. No murmurs, rubs, or gallops LUNGS: Clear to auscultation bilaterally. No wheezes. No rhonchi ABDOMEN: Soft, nontender, nondistended. Positive bowel sounds. Normal active bowel sounds, +loose stool colostomy output NEUROLOGICAL: Alert and oriented times three. Cranial nerves II through XII grossly intact. Sensation grossly intact EXTREMITIES: 5\5 strength bilateral upper extremities. 5\5 strength right lower extremity. 5/5 strength in left lower extremity. SKIN: + abdominal incision with mild erythema (no induration), [place] removed ASSESSMENT:74-year-old F with past medical history of HTN, hypothyroidism who presents status post colostomy for perforated rectum PLAN: 1. 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 Neuro: no active issue 3. CArdiac: hx of HTN c/u metoprolol -HLD c/u statin, medicine consulted to assist in overall management 4. Resp: encourage incentive spirometry, monitor for infection -c/u Duonebs 5. GI: s/p perforated colon with sigmoid resection and colostomy, on regular diet, c/u bowel meds, surgery consulted -[place] to be removed today, steri-strips to be placed 6. Endo: hx of hypothyroidism, c/u Synthroid -s/p TPN patient was on ISS, now on consistent Carb diet and ISS, will plan to decrease FS to BID and taper off ISS if possible, unclear if patient was diabetic in past 7. DVT ppx: Lovenox and teds 8. : c/u Ditropan, monitor bladder scans 9. Psych: c/u Cymbalta 10. Pain: Tylenol and oxycodone prn 11. Dispo: TBD Allergies Coded Allergies: No Known Allergies (Unverified , 01/22/20) Vital Signs Vital Signs Date Time Temp Pulse Resp B/P (MAP) Pulse Ox O2 Delivery O2 Flow Rate FiO2 02/05/20 09:10 89 130/72 02/05/20 06:00 96.9 18 95 Room Air Laboratory Data CBC/BMP Laboratory Tests 02/05/20 06:35 Labs 24H Laboratory Tests 2 02/04/20 17:11: Bedside Glucose (Misc Panel) 120H 02/04/20 19:58: Bedside Glucose (Misc Panel) 134H 02/05/20 06:35: Immature Granulocyte % (Auto) 0.8, Neutrophils (%) (Auto) 61.5, Lymphocytes (%) (Auto) 24.3, Monocytes (%) (Auto) 8.2H, Eosinophils (%) (Auto) 4.7H, Basophils (%) (Auto) 0.5, Neutrophils # (Auto) 3.7, Lymphocytes # (Auto) 1.5, Monocytes # (Auto) 0.5, Eosinophils # (Auto) 0.3, Basophils # (Auto) 0.0, Nucleated Red Blood Cells % (auto) 0.0, Anion Gap 5L, Glomerular Filtration Rate 52.2, Calcium Level 7.6L, Total Bilirubin 0.2#, Aspartate Amino Transf (AST/SGOT) 20, Alanine Aminotransferase (ALT/SGPT) 18, Alkaline Phosphatase 77, Total Protein 4.9L, Albumin 1.9L, Albumin/Globulin Ratio 0.63L 02/05/20 06:41: Bedside Glucose (Misc Panel) 118H 02/05/20 11:38: Bedside Glucose (Misc Panel) 93 Current Medications Current Medications Current Medications Medications (Trade) Dose Ordered Sig/Zohreh Route PRN Reason Start Time Stop Time Status Last Admin Dose Admin Acetaminophen (Tylenol Tab) 650 mg Q4HP PRN PO fever/MILD PAIN (PS 1-4) 02/04/20 14:00 Albuterol Sulfate (Proventil Neb) 2.5 mg Q2HP PRN NEB SOB/WHEEZING 02/04/20 14:00 Albuterol/ Ipratropium (Duoneb (Ipr 0.5mg/Alb 2.5mg)) 3 ml RTID NEB 02/04/20 20:00 02/05/20 07:20 Dextrose (Dextrose 50%) 25 ml ASDIRECTED PRN IV SEE LABEL COMMENTS 02/04/20 14:00 Duloxetine HCl (Cymbalta) 30 mg DAILY PO 02/05/20 09:00 02/05/20 09:09 Enoxaparin Sodium (Lovenox) 40 mg DAILY SC 02/05/20 09:00 02/05/20 09:10 Glucagon (Glucagon) 1 mg ASDIRECTED PRN SC SEE LABEL COMMENTS 02/04/20 14:00 Glucose (Glucose) 16 GM ASDIRECTED PRN PO SEE LABEL COMMENTS 02/04/20 14:00 Home Med (Med Rec Complete!) ASDIRECTED XX 02/04/20 18:00 02/04/20 18:02 DC Insulin Human Lispro (HumaLOG INSULIN) SEE PROTOCOL TABLE AC SC 02/04/20 17:30 02/04/20 17:47 Insulin Human Lispro (HumaLOG INSULIN) SEE PROTOCOL TABLE QHS SC 02/04/20 21:00 Lactulose (Cephulac) 30 ml BID PO 02/04/20 21:00 02/05/20 09:09 Levothyroxine Sodium (Synthroid) 88 mcg DAILY@06 PO 02/05/20 06:00 02/05/20 06:39 Metoprolol Succinate (TopROL XL) 50 mg DAILY PO 02/05/20 09:00 02/05/20 09:10 Nystatin (Mycostatin Powder, Nystop) 1 dose BIDP TOP 02/04/20 17:00 Oxybutynin Chloride (Ditropan) 5 mg BID PO 02/04/20 21:00 02/05/20 09:09 Oxycodone HCl (Roxicodone, Oxyir) 2.5 mg Q6HP PRN PO PAIN 02/04/20 14:00 Pantoprazole Sodium (Protonix) 40 mg DAILY PO 02/05/20 09:00 02/05/20 09:09 Potassium Chloride (Micro-K Extencaps) 10 meq DAILY PO 02/05/20 09:00 02/05/20 09:09 Senna/Docusate Sodium (Senokot S) 1 tab BID PO 02/04/20 21:00 02/05/20 09:09 Simvastatin (Zocor) 20 mg DAILY PO 02/05/20 09:00 02/05/20 09:09 AILYN PATEL MD Feb 05, 2020 13:45
[2020-02-05 14:00] VITALS: BP 130/61
--- NOTE | 2020-02-05 17:55 | IPNPDOC ---
Text Note Date of Service The patient was seen on 02/05/20. NOTE Subjective: No any acute events overnight. Patient denies fever, chills, nausea, vomiting, chest pain, palpitations, diarrhea dysuria PHYSICAL EXAMINATION: VITAL SIGNS: Please see below. GENERAL: awake, alert, NAD HEENT: NCAT, anicteric sclera, JORDYN NECK: supple, no JVD CARDIOVASCULAR EXAMINATION: NS1S2, regular rate/rhythm RESPIRATORY EXAMINATION: CTA b/l, no wheezes/rales/rhonchi ABDOMINAL EXAMINATION: positive bowel sounds, colostomy in place EXTREMITIES: no cyanosis, clubbing, edema SKIN: warm, no rashes. NEUROLOGICAL EXAMINATION: AAO x 3, no motor/sensory deficits PSYCHIATRIC EXAMINATION: calm, normal affect Patient 74 years old female with past medical history of depression, anxiety, hypothyroidism, diabetes type 2 presented hospital with abdominal pain. Patient was found to have perforated bowel on the CT scan. Patient was transferred to the operation room and exploratory laparotomy with abdominal washout, sigmoid resection with end sigmoid colostomy and drain placement was performed by Dr. Garcia on 01/22/20. Postsurgical period without complications. Patient was transferred to ARU Hypertension Blood pressures under control Continue home medications Hypothyroidism Continue levothyroxine Bowel perforation, status post resection Status post sigmoid resection with end sigmoid colostomy and drain placement Colostomy in place. Type 2 diabetes Glucose levels under control Insulin sliding scale Depression/anxiety Continue home meds VS,Fishbone, I+O VS, Fishbone, I+O Laboratory Tests 02/05/20 06:35 Vital Signs Date Time Temp Pulse Resp B/P (MAP) Pulse Ox O2 Delivery O2 Flow Rate FiO2 02/05/20 14:00 98.6 75 20 130/61 (84) 99 Room Air I&O- Last 24 Hours up to 6 AM 02/05/20 06:00 Intake Total 120 ml Output Total 50 ml Balance 70 ml ANTONIO CALIXTO DO Feb 05, 2020 17:55
[2020-02-05 20:00] VITALS: BP 119/58
[2020-02-06] MEDS: LEVOTHYROXINE 88MCG TABLET (0.088 MG) PO SCH (05:58)
[2020-02-06 06:00] VITALS: BP 117/63
[2020-02-06] MEDS: IPRATROPIUM 0.5MG/ALBUTEROL 2.5MG INH SOL UD 3ML (DUONEB)(J7620) NEB SCH ×3 (06:59→19:47)
[2020-02-06] MEDS: HumaLOG INSULIN (NovoLOG) PER UNIT SC SCH ×4 (07:30→21:00)
[2020-02-06] MEDS: SENOKOT S TAB PO SCH ×2 (08:15→21:07)
[2020-02-06] MEDS: ENOXAPARIN 40MG/0.4ML SYRINGE (J1650 PER 10MG) SC SCH (08:15)
[2020-02-06] MEDS: POTASSIUM CHLORIDE 10 MEQ SR TABLET PO SCH (08:15)
[2020-02-06] MEDS: oxyBUTYnin 5 MG TAB PO SCH ×2 (08:15→21:07)
[2020-02-06] MEDS: DULoxetine 30 MG CAP (CYMBALTA) PO SCH (08:15)
[2020-02-06] MEDS: LACTULOSE 20 GM/30 ML SYRUP UD PO SCH ×2 (08:15→21:07)
[2020-02-06] MEDS: PANTOPRAZOLE 40MG TAB (PROTONIX) PO SCH (08:16)
[2020-02-06] MEDS: REMEDY PHYTOPLEX Z-GUARD PASTE 113GM TUBE (FROM STOREROOM PRODUCT) TOP SCH ×3 (08:16→21:00)
[2020-02-06] MEDS: METOPROLOL SUCC (TopROL XL) 50MG **XL** TAB PO SCH (08:16)
[2020-02-06] MEDS: SIMVASTATIN 20 MG TAB PO SCH (08:16)
--- NOTE | 2020-02-06 08:21 | CR ---
DATE OF CONSULTATION: 02/05/2020 REASON FOR CONSULTATION: Surgical followup. HISTORY OF PRESENT ILLNESS: The patient is a 74-year-old female known to me. She was just admitted to me in the main hospital for rectal perforation due to chronic constipation. She underwent partial sigmoid resection with end colostomy and she then had a long hospital course due to prolonged constipation requiring multiple laxatives. She was just discharged from the main hospital by myself yesterday, 02/04/2020, and was admitted over into rehabilitation. I was asked to be on consult just in case she needed anything surgical agudelo. I went and saw her again this morning. She is still doing well, tolerating a diet and working with physical therapy. She had no questions for me. I had the nurses remove her [place] today because she is 2 weeks out from surgery. All of her questions are answered. She will continue with ostomy training and likely be discharged from rehab within the next week or so. I will continue to follow her as needed until her discharge and once she is discharged she can follow up me in the office about 2 weeks after she leaves to see how she is doing and plan for possible reversal of her colostomy in about 3-6 months.
[2020-02-06 09:33] LABS: HEMATOCRIT 33.6 % (36.0-47.0); HEMOGLOBIN 10.5 g/dl (12.0-15.5); MEAN CORPUSCULAR HEMOGLOBIN 27.5 pg (27.0-33.0); MEAN CORPUSCULAR HGB CONC 31.3 g/dl (32.0-36.5); PLATELET COUNT, AUTOMATED 343 10^3/uL (150-450); RED BLOOD COUNT 3.82 10^6/uL (4.00-5.40)
[2020-02-06 09:58] LABS: CALCIUM LEVEL 7.9 MG/DL (8.8-10.2); CREATININE FOR GFR 1.16 MG/DL (0.55-1.30); GLOMERULAR FILTRATION RATE 48.6 (>39); POTASSIUM SERUM 4.1 MEQ/L (3.5-5.1)
[2020-02-06] MEDS ORDERED: VARIBAR PUDDING 40% w/v 230ML TUBE As Ordered ONE (11:13)
[2020-02-06] MEDS ORDERED: E-Z-PAQUE 96% w/w SUSP 176GM BTL As Ordered ONE (11:13)
[2020-02-06] MEDS ORDERED: VARIBAR NECTAR 40% w/v 240ML SUSP BTL As Ordered ONE (11:13)
[2020-02-06 14:00] VITALS: BP 138/71
--- NOTE | 2020-02-06 14:35 | IPNPDOC ---
PM&R Progress Note DATE OF SERVICE: February 06, 2020 [employer] Progress Note Subjective: Patient seen in the gym stating she has a "stitch" in her right upper abdomen that is relived with stretching and massage. REVIEW OF SYSTEMS: The following is a completed review of systems and has been reviewed. Review of systems otherwise unremarkable. PAIN: Patient self reports no pain EYES: No recent vision changes EARS, NOSE, & THROAT: No throat pain, or dysphagia, or rhinorrhea CARDIOVASCULAR: Denies chest pain or palpitations PULMONARY: Denies shortness of breath GASTROINTESTINAL: +colostomy GENITOURINARY: denies dysuria MUSCULOSKELETAL: generalized weakness NEUROLOGICAL:no paresthesias HEMATOLOGICAL: denies easy bruising SKIN: abdominal incision PSYCHIATRIC: Unremarkable All other review of systems found to be negative. PHYSICAL EXAMINATION: VITAL SIGNS: Please see below. GENERAL: Pleasant and cooperative. No acute distress. +obese HEENT: PERRL. Extraocular movements intact. Clear conjunctiva CARDIOVASCULAR: Regular rate and rhythm. No murmurs, rubs, or gallops LUNGS: Clear to auscultation bilaterally. No wheezes. No rhonchi ABDOMEN: Soft, nontender, nondistended. Positive bowel sounds. Normal active bowel sounds, +loose stool colostomy output NEUROLOGICAL: Alert and oriented times three. Cranial nerves II through XII analilia sly intact. Sensation grossly intact EXTREMITIES: 5\\5 strength bilateral upper extremities. 5\\5 strength right lower extremity. 5/5 strength in left lower extremity. SKIN: + abdominal incision with mild erythema (no induration), [place] removed ASSESSMENT:74-year-old F with past medical history of HTN, hypothyroidism who presents status post colostomy for perforated rectum PLAN: 1. Rehab- PT/OT advance gait and ADL training, strengthen/stretch/maintain ROM all 4 limbs, dynamic balance training without AD, fall recovery, colostomy care -FRONT DESK SPECIALIST patient reporting difficulty with pills, MBS ordered for today, will switch diet to level 2 for dysphagia possible due to hx of esophageal strictures 2. Neuro: no active issue 3. CArdiac: hx of HTN c/u metoprolol -HLD c/u statin, medicine consulted to assist in overall management 4. Resp: encourage incentive spirometry, monitor for infection -c/u Duonebs 5. GI: s/p perforated colon with sigmoid resection and colostomy, on regular diet, c/u bowel meds, surgery consulted -[place] to be removed today, steri-strips to be placed 6. Endo: hx of hypothyroidism, c/u Synthroid -s/p TPN patient was on ISS, now on consistent Carb diet and ISS, will plan to decrease FS to BID and taper off ISS if possible, unclear if patient was diabetic in past 7. DVT ppx: Lovenox and teds 8. : c/u Ditropan, monitor bladder scans 9. Psych: c/u Cymbalta 10. Pain: Tylenol and oxycodone prn -lidoderm to right upper ribcage 11. Dispo: TBD Allergies Coded Allergies: No Known Allergies (Unverified , 01/22/20) Vital Signs Vital Signs Date Time Temp Pulse Resp B/P (MAP) Pulse Ox O2 Delivery O2 Flow Rate FiO2 02/06/20 14:00 98.0 68 14 138/71 (93) 96 Room Air Laboratory Data CBC/BMP Laboratory Tests 02/06/20 09:14 Labs 24H Laboratory Tests 2 02/05/20 16:47: Bedside Glucose (Misc Panel) 104 02/05/20 19:52: Bedside Glucose (Misc Panel) 147H 02/06/20 06:24: Bedside Glucose (Misc Panel) 96 02/06/20 09:14: Nucleated Red Blood Cells % (auto) 0.0, Anion Gap 7L, Glomerular Filtration Rate 48.6, Calcium Level 7.9L 02/06/20 12:06: Bedside Glucose (Misc Panel) 107 Current Medications Current Medications Current Medications Medications (Trade) Dose Ordered Sig/Zohreh Route PRN Reason Start Time Stop Time Status Last Admin Dose Admin Acetaminophen (Tylenol Tab) 650 mg Q4HP PRN PO fever/MILD PAIN (PS 1-4) 02/04/20 14:00 Albuterol Sulfate (Proventil Neb) 2.5 mg Q2HP PRN NEB SOB/WHEEZING 02/04/20 14:00 Albuterol/ Ipratropium (Duoneb (Ipr 0.5mg/Alb 2.5mg)) 3 ml RTID NEB 02/04/20 20:00 02/06/20 13:57 Dextrose (Dextrose 50%) 25 ml ASDIRECTED PRN IV SEE LABEL COMMENTS 02/04/20 14:00 Duloxetine HCl (Cymbalta) 30 mg DAILY PO 02/05/20 09:00 02/06/20 08:15 Enoxaparin Sodium (Lovenox) 40 mg DAILY SC 02/05/20 09:00 02/06/20 08:15 Glucagon (Glucagon) 1 mg ASDIRECTED PRN SC SEE LABEL COMMENTS 02/04/20 14:00 Glucose (Glucose) 16 GM ASDIRECTED PRN PO SEE LABEL COMMENTS 02/04/20 14:00 Home Med (Med Rec Complete!) ASDIRECTED XX 02/04/20 18:00 02/04/20 18:02 DC Insulin Human Lispro (HumaLOG INSULIN) SEE PROTOCOL TABLE AC SC 02/04/20 17:30 02/06/20 12:39 Insulin Human Lispro (HumaLOG INSULIN) SEE PROTOCOL TABLE QHS SC 02/04/20 21:00 Lactulose (Cephulac) 30 ml BID PO 02/04/20 21:00 02/06/20 08:15 Levothyroxine Sodium (Synthroid) 88 mcg DAILY@06 PO 02/05/20 06:00 02/06/20 05:58 Metoprolol Succinate (TopROL XL) 50 mg DAILY PO 02/05/20 09:00 02/06/20 08:16 Nystatin (Mycostatin Powder, Nystop) 1 dose BIDP TOP 02/04/20 17:00 Oxybutynin Chloride (Ditropan) 5 mg BID PO 02/04/20 21:00 02/06/20 08:15 Oxycodone HCl (Roxicodone, Oxyir) 2.5 mg Q6HP PRN PO PAIN 02/04/20 14:00 Pantoprazole Sodium (Protonix) 40 mg DAILY PO 02/05/20 09:00 02/06/20 08:16 Potassium Chloride (Micro-K Extencaps) 10 meq DAILY PO 02/05/20 09:00 02/06/20 08:15 Senna/Docusate Sodium (Senokot S) 1 tab BID PO 02/04/20 21:00 02/06/20 08:15 Simvastatin (Zocor) 20 mg DAILY PO 02/05/20 09:00 02/06/20 08:16 AILYN PATEL MD February 06, 2020 14:35
--- NOTE | 2020-02-06 15:49 | REP ---
Examination Requested: Cookie Swallow Reason For Exam: Dysphasia. The procedure was performed by EDGAR Tobias, under the direct supervision of Dr. Lang. The procedure was performed with Maryan Pollock from speech pathology present. 5 ml aliquots of thin, pudding, mixed fruit, soft food, hard food and pill consistency barium was administered. There is hypertrophy of the cricopharyngeal muscle. No aspiration or penetration was visualized throughout the course of the exam. The detailed report of this examination will be provided by speech pathology. 2.0 minutes of fluoroscopy time was utilized for this procedure. Reviewed by EDGAR Sierra 02/06/2020 01:13 P Electronically Signed by Boris Lang MD 02/06/2020 03:40 P
[2020-02-06] MEDS: LIDOCAINE 5% (LIDODERM) PATCH TD SCH (17:27)
[2020-02-06 20:00] VITALS: BP 143/85
[2020-02-06] MEDS: **NOTE PATIENT COMMENT** MISC XX SCH (21:08)
[2020-02-07 04:00] VITALS: BP 142/65
[2020-02-07] MEDS: LEVOTHYROXINE 88MCG TABLET (0.088 MG) PO SCH (05:57)
[2020-02-07] MEDS: IPRATROPIUM 0.5MG/ALBUTEROL 2.5MG INH SOL UD 3ML (DUONEB)(J7620) NEB SCH ×3 (07:25→19:46)
[2020-02-07] MEDS: HumaLOG INSULIN (NovoLOG) PER UNIT SC SCH ×4 (07:47→20:37)
[2020-02-07] MEDS: DULoxetine 30 MG CAP (CYMBALTA) PO SCH (09:29)
[2020-02-07] MEDS: oxyBUTYnin 5 MG TAB PO SCH ×2 (09:29→20:36)
[2020-02-07] MEDS: LACTULOSE 20 GM/30 ML SYRUP UD PO SCH ×2 (09:29→20:36)
[2020-02-07] MEDS: PANTOPRAZOLE 40MG TAB (PROTONIX) PO SCH (09:30)
[2020-02-07] MEDS: POTASSIUM CHLORIDE 10 MEQ SR TABLET PO SCH (09:30)
[2020-02-07] MEDS: SENOKOT S TAB PO SCH ×2 (09:30→20:36)
[2020-02-07] MEDS: SIMVASTATIN 20 MG TAB PO SCH (09:31)
[2020-02-07] MEDS: METOPROLOL SUCC (TopROL XL) 50MG **XL** TAB PO SCH (09:31)
[2020-02-07] MEDS: ENOXAPARIN 40MG/0.4ML SYRINGE (J1650 PER 10MG) SC SCH (09:32)
[2020-02-07] MEDS: REMEDY PHYTOPLEX Z-GUARD PASTE 113GM TUBE (FROM STOREROOM PRODUCT) TOP SCH ×3 (09:33→20:37)
[2020-02-07] MEDS: LIDOCAINE 5% (LIDODERM) PATCH TD SCH (09:33)
[2020-02-07 14:00] VITALS: BP 144/71
[2020-02-07 20:00] VITALS: BP 146/68
[2020-02-07] MEDS: **NOTE PATIENT COMMENT** MISC XX SCH (20:37)
[2020-02-08 06:52] VITALS: BP 151/72
[2020-02-08] MEDS: LEVOTHYROXINE 88MCG TABLET (0.088 MG) PO SCH (07:02)
[2020-02-08] MEDS: IPRATROPIUM 0.5MG/ALBUTEROL 2.5MG INH SOL UD 3ML (DUONEB)(J7620) NEB SCH ×3 (07:06→19:33)
[2020-02-08] MEDS: oxyBUTYnin 5 MG TAB PO SCH ×2 (08:46→20:39)
[2020-02-08] MEDS: PANTOPRAZOLE 40MG TAB (PROTONIX) PO SCH (08:46)
[2020-02-08] MEDS: POTASSIUM CHLORIDE 10 MEQ SR TABLET PO SCH (08:46)
[2020-02-08] MEDS: SENOKOT S TAB PO SCH ×2 (08:46→20:39)
[2020-02-08] MEDS: SIMVASTATIN 20 MG TAB PO SCH (08:46)
[2020-02-08] MEDS: LACTULOSE 20 GM/30 ML SYRUP UD PO SCH ×2 (08:46→20:39)
[2020-02-08] MEDS: DULoxetine 30 MG CAP (CYMBALTA) PO SCH (08:46)
[2020-02-08] MEDS: HumaLOG INSULIN (NovoLOG) PER UNIT SC SCH ×4 (08:46→20:39)
[2020-02-08] MEDS: ENOXAPARIN 40MG/0.4ML SYRINGE (J1650 PER 10MG) SC SCH (08:47)
[2020-02-08] MEDS: LIDOCAINE 5% (LIDODERM) PATCH TD SCH (08:47)
[2020-02-08] MEDS: METOPROLOL SUCC (TopROL XL) 50MG **XL** TAB PO SCH (08:49)
[2020-02-08] MEDS: REMEDY PHYTOPLEX Z-GUARD PASTE 113GM TUBE (FROM STOREROOM PRODUCT) TOP SCH ×3 (08:49→20:40)
[2020-02-08 14:00] VITALS: BP 125/65
[2020-02-08] MEDS: **NOTE PATIENT COMMENT** MISC XX SCH (20:40)
[2020-02-08 21:00] VITALS: BP 132/62
[2020-02-09 06:00] VITALS: BP 145/66
[2020-02-09] MEDS: LEVOTHYROXINE 88MCG TABLET (0.088 MG) PO SCH (06:29)
[2020-02-09 06:42] LABS: HEMATOCRIT 28.7 % (36.0-47.0); HEMOGLOBIN 9.4 g/dl (12.0-15.5); MEAN CORPUSCULAR HEMOGLOBIN 28.4 pg (27.0-33.0); MEAN CORPUSCULAR HGB CONC 32.8 g/dl (32.0-36.5); MEAN CORPUSCULAR VOLUME 86.7 fl (80.0-96.0); PLATELET COUNT, AUTOMATED 284 10^3/uL (150-450); RED BLOOD COUNT 3.31 10^6/uL (4.00-5.40)
[2020-02-09 07:08] LABS: CALCIUM LEVEL 8.3 MG/DL (8.8-10.2); CREATININE FOR GFR 1.11 MG/DL (0.55-1.30); GLOMERULAR FILTRATION RATE 51.2 (>39); POTASSIUM SERUM 4.2 MEQ/L (3.5-5.1)
[2020-02-09] MEDS: IPRATROPIUM 0.5MG/ALBUTEROL 2.5MG INH SOL UD 3ML (DUONEB)(J7620) NEB SCH ×3 (07:33→19:48)
[2020-02-09] MEDS: POTASSIUM CHLORIDE 10 MEQ SR TABLET PO SCH (08:34)
[2020-02-09] MEDS: oxyBUTYnin 5 MG TAB PO SCH ×2 (08:34→20:56)
[2020-02-09] MEDS: PANTOPRAZOLE 40MG TAB (PROTONIX) PO SCH (08:34)
[2020-02-09] MEDS: LIDOCAINE 5% (LIDODERM) PATCH TD SCH (08:34)
[2020-02-09] MEDS: SIMVASTATIN 20 MG TAB PO SCH (08:34)
[2020-02-09] MEDS: SENOKOT S TAB PO SCH ×2 (08:34→20:56)
[2020-02-09] MEDS: ENOXAPARIN 40MG/0.4ML SYRINGE (J1650 PER 10MG) SC SCH (08:34)
[2020-02-09] MEDS: DULoxetine 30 MG CAP (CYMBALTA) PO SCH (08:34)
[2020-02-09] MEDS: METOPROLOL SUCC (TopROL XL) 50MG **XL** TAB PO SCH (08:34)
[2020-02-09] MEDS: LACTULOSE 20 GM/30 ML SYRUP UD PO SCH ×2 (08:35→20:56)
[2020-02-09] MEDS: REMEDY PHYTOPLEX Z-GUARD PASTE 113GM TUBE (FROM STOREROOM PRODUCT) TOP SCH ×3 (08:35→20:57)
[2020-02-09] MEDS: HumaLOG INSULIN (NovoLOG) PER UNIT SC SCH (08:35)
[2020-02-09] MEDS ORDERED: METO1TAB7 PO (11:25)
[2020-02-09] MEDS ORDERED: KLOR10TA76 PO (11:25)
[2020-02-09] MEDS ORDERED: CYMB1CAP5 PO (11:25)
[2020-02-09] MEDS ORDERED: SYNT88TA2 PO (11:25)
[2020-02-09] MEDS ORDERED: OXYB5TAB10 PO (11:25)
[2020-02-09] MEDS ORDERED: SIMV20TA22 PO (11:25)
[2020-02-09] MEDS ORDERED: PANT40TA3 PO (11:28)
[2020-02-09] MEDS ORDERED: ASPI-527 PO (11:28)
[2020-02-09 14:00] VITALS: BP 124/81
[2020-02-09] MEDS: ASPIRIN ENTERIC 325 MG TAB PO SCH (14:05)
--- NOTE | 2020-02-09 17:05 | IPNPDOC ---
PM&R Progress Note DATE OF SERVICE: February 09, 2020 [employer] Progress Note Subjective: Patient reporting she feels well and is ready for room privileges today. REVIEW OF SYSTEMS: The following is a completed review of systems and has been reviewed. Review of systems otherwise unremarkable. PAIN: Patient self reports no pain EYES: No recent vision changes EARS, NOSE, & THROAT: No throat pain, or dysphagia, or rhinorrhea CARDIOVASCULAR: Denies chest pain or palpitations PULMONARY: Denies shortness of breath GASTROINTESTINAL: +colostomy GENITOURINARY: denies dysuria MUSCULOSKELETAL: generalized weakness NEUROLOGICAL:no paresthesias HEMATOLOGICAL: denies easy bruising SKIN: abdominal incision PSYCHIATRIC: Unremarkable All other review of systems found to be negative. PHYSICAL EXAMINATION: VITAL SIGNS: Please see below. GENERAL: Pleasant and cooperative. No acute distress. +obese HEENT: PERRL. Extraocular movements intact. Clear conjunctiva CARDIOVASCULAR: Regular rate and rhythm. No murmurs, rubs, or gallops LUNGS: Clear to auscultation bilaterally. No wheezes. No rhonchi ABDOMEN: Soft, nontender, nondistended. Positive bowel sounds. Normal active bowel sounds, +loose stool colostomy output NEUROLOGICAL: Alert and oriented times three. Cranial nerves II through XII grossly intact. Sensation grossly intact EXTREMITIES: 5\5 strength bilateral upper extremities. 5\5 strength right lower extremity. 5/5 strength in left lower extremity. SKIN: + abdominal incision with mild erythema (no induration), [place] removed ASSESSMENT:74-year-old F with past medical history of HTN, hypothyroidism who presents status post colostomy for perforated rectum PLAN: 1. Rehab- PT/OT advance gait and ADL training, strengthen/stretch/maintain ROM all 4 limbs, dynamic balance training without AD, fall recovery, colostomy care, room privileges -PLASTER PATTERN CASTER patient reporting difficulty with pills, MBS5-1-20, c/u level 2 for dysphagia possible due to hx of esophageal strictures 2. Neuro: no active issue 3. CArdiac: hx of HTN c/u metoprolol -HLD c/u statin, medicine consulted to assist in overall management 4. Resp: encourage incentive spirometry, monitor for infection -c/u Duonebs 5. GI: s/p perforated colon with sigmoid resection and colostomy, on regular diet, c/u bowel meds, surgery consulted -[place] to be removed today, steri-strips to be placed 6. Endo: hx of hypothyroidism, c/u Synthroid -s/p TPN patient now on consistent Carb diet ISS d/c'd, monitor FS BID 7. DVT ppx: Lovenox and teds 8. : c/u Ditropan, monitor bladder scans 9. Psych: c/u Cymbalta 10. Pain: Tylenol and oxycodone prn -lidoderm to right upper ribcage 11. Dispo: 02-11-20 to home, progressing towards goals Allergies Coded Allergies: No Known Allergies (Unverified , 01/22/20) Vital Signs Vital Signs Date Time Temp Pulse Resp B/P (MAP) Pulse Ox O2 Delivery O2 Flow Rate FiO2 02/09/20 14:00 97.7 70 18 124/81 (95) 97 Room Air Laboratory Data CBC/BMP Laboratory Tests 02/09/20 06:17 Labs 24H Laboratory Tests 2 02/08/20 20:33: Bedside Glucose (Misc Panel) 118H 02/09/20 06:17: Nucleated Red Blood Cells % (auto) 0.0, Anion Gap 5L, Glomerular Filtration Rate 51.2, Calcium Level 8.3L 02/09/20 16:33: Bedside Glucose (Misc Panel) 104 Current Medications Current Medications Current Medications Medications (Trade) Dose Ordered Sig/Zohreh Route PRN Reason Start Time Stop Time Status Last Admin Dose Admin Acetaminophen (Tylenol Tab) 650 mg Q4HP PRN PO fever/MILD PAIN (PS 1-4) 02/04/20 14:00 Albuterol Sulfate (Proventil Neb) 2.5 mg Q2HP PRN NEB SOB/WHEEZING 02/04/20 14:00 Albuterol/ Ipratropium (Duoneb (Ipr 0.5mg/Alb 2.5mg)) 3 ml RTID NEB 02/04/20 20:00 02/09/20 14:24 Aspirin (Ecotrin) 325 mg DAILY PO 02/09/20 09:00 02/09/20 14:05 Dextrose (Dextrose 50%) 25 ml ASDIRECTED PRN IV SEE LABEL COMMENTS 02/04/20 14:00 Duloxetine HCl (Cymbalta) 30 mg DAILY PO 02/05/20 09:00 02/09/20 08:34 Enoxaparin Sodium (Lovenox) 40 mg DAILY SC 02/05/20 09:00 02/09/20 08:34 Glucagon (Glucagon) 1 mg ASDIRECTED PRN SC SEE LABEL COMMENTS 02/04/20 14:00 Glucose (Glucose) 16 GM ASDIRECTED PRN PO SEE LABEL COMMENTS 02/04/20 14:00 Home Med (Med Rec Complete!) ASDIRECTED XX 02/04/20 18:00 02/04/20 18:02 DC Insulin Human Lispro (HumaLOG INSULIN) SEE PROTOCOL TABLE AC SC 02/04/20 17:30 02/09/20 11:07 DC 02/09/20 08:35 Insulin Human Lispro (HumaLOG INSULIN) SEE PROTOCOL TABLE QHS SC 02/04/20 21:00 02/09/20 11:07 DC Lactulose (Cephulac) 30 ml BID PO 02/04/20 21:00 02/09/20 08:35 Levothyroxine Sodium (Synthroid) 88 mcg DAILY@06 PO 02/05/20 06:00 02/09/20 06:29 Lidocaine (Lidoderm Patch) 1 patch DAILY TD 02/06/20 14:45 02/09/20 08:34 Metoprolol Succinate (TopROL XL) 50 mg DAILY PO 02/05/20 09:00 02/09/20 08:34 Non-Formulary Medication ( See Comment Field Below ) REMOVE LIDODERM PATCH DAILY@21 XX 02/06/20 21:00 02/08/20 20:40 Nystatin (Mycostatin Powder, Nystop) 1 dose BIDP TOP 02/04/20 17:00 Oxybutynin Chloride (Ditropan) 5 mg BID PO 02/04/20 21:00 02/09/20 08:34 Oxycodone HCl (Roxicodone, Oxyir) 2.5 mg Q6HP PRN PO PAIN 02/04/20 14:00 Pantoprazole Sodium (Protonix) 40 mg DAILY PO 02/05/20 09:00 02/09/20 08:34 Potassium Chloride (Micro-K Extencaps) 10 meq DAILY PO 02/05/20 09:00 02/09/20 08:34 Senna/Docusate Sodium (Senokot S) 1 tab BID PO 02/04/20 21:00 02/09/20 08:34 Simvastatin (Zocor) 20 mg DAILY PO 02/05/20 09:00 02/09/20 08:34 AILYN PATEL MD February 09, 2020 17:05
[2020-02-09 20:00] VITALS: BP 122/58
[2020-02-09] MEDS: **NOTE PATIENT COMMENT** MISC XX SCH (21:11)
[2020-02-10] MEDS: LEVOTHYROXINE 88MCG TABLET (0.088 MG) PO SCH (05:00)
[2020-02-10 06:00] VITALS: BP 129/60
[2020-02-10] MEDS: IPRATROPIUM 0.5MG/ALBUTEROL 2.5MG INH SOL UD 3ML (DUONEB)(J7620) NEB SCH ×3 (06:22→19:22)
[2020-02-10] MEDS: SENOKOT S TAB PO SCH ×2 (08:20→20:21)
[2020-02-10] MEDS: LACTULOSE 20 GM/30 ML SYRUP UD PO SCH ×2 (08:20→20:21)
[2020-02-10] MEDS: PANTOPRAZOLE 40MG TAB (PROTONIX) PO SCH (08:20)
[2020-02-10] MEDS: DULoxetine 30 MG CAP (CYMBALTA) PO SCH (08:21)
[2020-02-10] MEDS: ASPIRIN ENTERIC 325 MG TAB PO SCH (08:21)
[2020-02-10] MEDS: oxyBUTYnin 5 MG TAB PO SCH ×2 (08:21→20:21)
[2020-02-10] MEDS: SIMVASTATIN 20 MG TAB PO SCH (08:21)
[2020-02-10] MEDS: METOPROLOL SUCC (TopROL XL) 50MG **XL** TAB PO SCH (08:21)
[2020-02-10] MEDS: ENOXAPARIN 40MG/0.4ML SYRINGE (J1650 PER 10MG) SC SCH (08:21)
[2020-02-10] MEDS: POTASSIUM CHLORIDE 10 MEQ SR TABLET PO SCH (08:21)
[2020-02-10] MEDS: REMEDY PHYTOPLEX Z-GUARD PASTE 113GM TUBE (FROM STOREROOM PRODUCT) TOP SCH ×3 (08:22→20:22)
[2020-02-10] MEDS: LIDOCAINE 5% (LIDODERM) PATCH TD SCH (08:22)
--- NOTE | 2020-02-10 12:54 | IPNPDOC ---
PM&R Progress Note DATE OF SERVICE: February 10, 2020 Technology Specialist Progress Note Subjective: [facility]" in her side feels much better and that she is ready to go home tomorrow. REVIEW OF SYSTEMS: The following is a completed review of systems and has been reviewed. Review of systems otherwise unremarkable. PAIN: Patient self reports no pain EYES: No recent vision changes EARS, NOSE, & THROAT: No throat pain, or dysphagia, or rhinorrhea CARDIOVASCULAR: Denies chest pain or palpitations PULMONARY: Denies shortness of breath GASTROINTESTINAL: +colostomy GENITOURINARY: denies dysuria MUSCULOSKELETAL: generalized weakness NEUROLOGICAL:no paresthesias HEMATOLOGICAL: denies easy bruising SKIN: abdominal incision PSYCHIATRIC: Unremarkable All other review of systems found to be negative. PHYSICAL EXAMINATION: VITAL SIGNS: Please see below. GENERAL: Pleasant and cooperative. No acute distress. +obese HEENT: PERRL. Extraocular movements intact. Clear conjunctiva CARDIOVASCULAR: Regular rate and rhythm. No murmurs, rubs, or gallops LUNGS: Clear to auscultation bilaterally. No wheezes. No rhonchi ABDOMEN: Soft, nontender, nondistended. Positive bowel sounds. Normal active bowel sounds, +loose stool colostomy output NEUROLOGICAL: Alert and oriented times three. Cranial nerves II through XII grossly intact. Sensation grossly intact EXTREMITIES: 5\\5 strength bilateral upper extremities. 5\\5 strength right lower extremity. 5/5 strength in left lower extremity. SKIN: + abdominal incision with mild erythema (no induration), [place] removed ASSESSMENT:74-year-old F with past medical history of HTN, hypothyroidism who presents status post colostomy for perforated rectum PLAN: 1. Rehab- PT/OT advance gait and ADL training, strengthen/stretch/maintain ROM all 4 limbs, dynamic balance training without AD, fall recovery, colostomy care, room privileges -PROFESSOR OF PHYSICS patient reporting difficulty with pills, MBS5-1-20, c/u level 2 for dysphagia possible due to hx of esophageal strictures 2. Neuro: no active issue 3. CArdiac: hx of HTN c/u metoprolol -HLD c/u statin, medicine consulted to assist in overall management 4. Resp: encourage incentive spirometry, monitor for infection -c/u Duonebs 5. GI: s/p perforated colon with sigmoid resection and colostomy, on regular diet, c/u bowel meds, surgery consulted -good bowel output 6. Endo: hx of hypothyroidism, c/u Synthroid -s/p TPN patient now on consistent Carb diet ISS d/c'd, monitor FS BID-stable 7. DVT ppx: Lovenox and teds 8. : c/u Ditropan, monitor bladder scans 9. Psych: c/u Cymbalta 10. Pain: Tylenol and oxycodone prn -lidoderm to right upper ribcage, pain improving 11. Dispo: 02-11-20 to home, progressing towards goals Allergies Coded Allergies: No Known Allergies (Unverified , 01/22/20) Vital Signs Vital Signs Date Time Temp Pulse Resp B/P (MAP) Pulse Ox O2 Delivery O2 Flow Rate FiO2 02/10/20 08:21 66 129/60 02/10/20 06:00 98.7 20 96 Room Air Laboratory Data Labs 24H Laboratory Tests 2 02/09/20 16:33: Bedside Glucose (Misc Panel) 104 02/10/20 05:39: Bedside Glucose (Misc Panel) 116H Current Medications Current Medications Current Medications Medications (Trade) Dose Ordered Sig/Zohreh Route PRN Reason Start Time Stop Time Status Last Admin Dose Admin Acetaminophen (Tylenol Tab) 650 mg Q4HP PRN PO fever/MILD PAIN (PS 1-4) 02/04/20 14:00 02/10/20 04:59 Albuterol Sulfate (Proventil Neb) 2.5 mg Q2HP PRN NEB SOB/WHEEZING 02/04/20 14:00 Albuterol/ Ipratropium (Duoneb (Ipr 0.5mg/Alb 2.5mg)) 3 ml RTID NEB 02/04/20 20:00 02/10/20 06:22 Aspirin (Ecotrin) 325 mg DAILY PO 02/09/20 09:00 02/10/20 08:21 Dextrose (Dextrose 50%) 25 ml ASDIRECTED PRN IV SEE LABEL COMMENTS 02/04/20 14:00 Duloxetine HCl (Cymbalta) 30 mg DAILY PO 02/05/20 09:00 02/10/20 08:21 Enoxaparin Sodium (Lovenox) 40 mg DAILY SC 02/05/20 09:00 02/10/20 08:21 Glucagon (Glucagon) 1 mg ASDIRECTED PRN SC SEE LABEL COMMENTS 02/04/20 14:00 Glucose (Glucose) 16 GM ASDIRECTED PRN PO SEE LABEL COMMENTS 02/04/20 14:00 Home Med (Med Rec Complete!) ASDIRECTED XX 02/04/20 18:00 02/04/20 18:02 DC Insulin Human Lispro (HumaLOG INSULIN) SEE PROTOCOL TABLE AC SC 02/04/20 17:30 02/09/20 11:07 DC 02/09/20 08:35 Insulin Human Lispro (HumaLOG INSULIN) SEE PROTOCOL TABLE QHS SC 02/04/20 21:00 02/09/20 11:07 DC Lactulose (Cephulac) 30 ml BID PO 02/04/20 21:00 02/10/20 08:20 Levothyroxine Sodium (Synthroid) 88 mcg DAILY@06 PO 02/05/20 06:00 02/10/20 05:00 Lidocaine (Lidoderm Patch) 1 patch DAILY TD 02/06/20 14:45 02/09/20 08:34 Metoprolol Succinate (TopROL XL) 50 mg DAILY PO 02/05/20 09:00 02/10/20 08:21 Non-Formulary Medication ( See Comment Field Below ) REMOVE LIDODERM PATCH DAILY@21 XX 02/06/20 21:00 02/09/20 21:11 Nystatin (Mycostatin Powder, Nystop) 1 dose BIDP TOP 02/04/20 17:00 Oxybutynin Chloride (Ditropan) 5 mg BID PO 02/04/20 21:00 02/10/20 08:21 Oxycodone HCl (Roxicodone, Oxyir) 2.5 mg Q6HP PRN PO PAIN 02/04/20 14:00 Pantoprazole Sodium (Protonix) 40 mg DAILY PO 02/05/20 09:00 02/10/20 08:20 Potassium Chloride (Micro-K Extencaps) 10 meq DAILY PO 02/05/20 09:00 02/10/20 08:21 Senna/Docusate Sodium (Senokot S) 1 tab BID PO 02/04/20 21:00 02/10/20 08:20 Simvastatin (Zocor) 20 mg DAILY PO 02/05/20 09:00 02/10/20 08:21 AILYN PATEL MD February 10, 2020 12:54
[2020-02-10 14:00] VITALS: BP 132/65
[2020-02-10 20:00] VITALS: BP 135/63
[2020-02-10] MEDS: **NOTE PATIENT COMMENT** MISC XX SCH (20:22)
[2020-02-11] MEDS: LEVOTHYROXINE 88MCG TABLET (0.088 MG) PO SCH (05:51)
[2020-02-11 06:00] VITALS: BP 143/70
[2020-02-11] MEDS: IPRATROPIUM 0.5MG/ALBUTEROL 2.5MG INH SOL UD 3ML (DUONEB)(J7620) NEB SCH (07:40)
[2020-02-11] MEDS: ENOXAPARIN 40MG/0.4ML SYRINGE (J1650 PER 10MG) SC SCH (08:36)
[2020-02-11] MEDS: DULoxetine 30 MG CAP (CYMBALTA) PO SCH (08:36)
[2020-02-11 08:37] VITALS: BP 143/70
[2020-02-11] MEDS: POTASSIUM CHLORIDE 10 MEQ SR TABLET PO SCH (08:37)
[2020-02-11] MEDS: SIMVASTATIN 20 MG TAB PO SCH (08:37)
[2020-02-11] MEDS: METOPROLOL SUCC (TopROL XL) 50MG **XL** TAB PO SCH (08:37)
[2020-02-11] MEDS: oxyBUTYnin 5 MG TAB PO SCH (08:37)
[2020-02-11] MEDS: SENOKOT S TAB PO SCH (08:37)
[2020-02-11] MEDS: PANTOPRAZOLE 40MG TAB (PROTONIX) PO SCH (08:37)
[2020-02-11] MEDS: LACTULOSE 20 GM/30 ML SYRUP UD PO SCH (08:38)
[2020-02-11] MEDS: LIDOCAINE 5% (LIDODERM) PATCH TD SCH (08:38)
[2020-02-11] MEDS: ASPIRIN ENTERIC 325 MG TAB PO SCH (08:38)
[2020-02-11] MEDS: REMEDY PHYTOPLEX Z-GUARD PASTE 113GM TUBE (FROM STOREROOM PRODUCT) TOP SCH (08:38)
== END 2020-02-11 13:30 | disposition home health service (06) | DRG 950 ==
LOC: M PM&R 16:50
PROVIDERS: ADMIT Physical Medicine & Rehabilitation; ATTEND Physical Medicine & Rehabilitation
DX: Z48.812 Encounter for surgical aftercare following surgery on the circulatory system (principal); Z93.3 Colostomy status; E03.9 Hypothyroidism, unspecified; E11.9 Type 2 diabetes mellitus without complications; R26.2 Difficulty in walking, not elsewhere classified; I10 Essential (primary) hypertension; Z79.899 Other long term (current) drug therapy; Z79.82 Long term (current) use of aspirin; F41.9 Anxiety disorder, unspecified; F32.9 Major depressive disorder, single episode, unspecified

== ENCOUNTER → 2020-05-26 | Day surgery (SDC) | payer MEDICARE, MEDICAID ==
[~2020-05-26] MED LIST changes: +CALC600T61 PO; +CYMB1CAP5 PO; +HYDR-3713 PO; +HYDR-3715 PO; +KLOR10TA76 PO; +LACT20EL PO; +LIDOCAINE 2% 100MG/5ML SDV (FOR ANES.) As Ordered ONE; -LISI20TA19 PO; +LISI20TA35 PO; +Lactulose Syrup PO; +MIRA3350 PO; +PANT40TA29 PO; +PEG1POW PO; +SYNT88TA2 PO; +propofoL 200 MG/20 ML VIAL As Ordered ONE
== END | disposition home or self-care (01) ==
LOC: M OPP 09:13
PROVIDERS: ATTEND Surgery
DX: Z93.3 Colostomy status (principal); Z53.8 Procedure and treatment not carried out for other reasons

== ENCOUNTER → 2020-06-03 | Outpatient (CLI) | payer MEDICARE, MEDICAID ==
[~2020-06-03] MED LIST changes: -LIDOCAINE 2% 100MG/5ML SDV (FOR ANES.) As Ordered ONE; -propofoL 200 MG/20 ML VIAL As Ordered ONE
--- NOTE | 2020-07-06 13:07 | REP ---
ABDOMINAL RADIOGRAPH CLINICAL: Constipation. Sitz marker study. TECHNIQUE: Single supine view of the abdomen and pelvis. FINDINGS: Innumerable Sitz markers are identified throughout the abdomen and pelvis. Underlying moderate to significant fecal stasis and presumed constipation. Ostomy overlies the lateral left lower abdomen/pelvis. Skeletal structures demonstrate age-related changes. No organomegaly. Phleboliths noted in the pelvis. IMPRESSION: Fecal stasis and constipation with Sitz markers scattered throughout the abdomen and pelvis. No Sitz markers are identified in the region of the ostomy in the left lower abdomen. MTDD
== END ==
LOC: M RAD 10:10
PROVIDERS: ATTEND Surgery
DX: K59.00 Constipation, unspecified (principal); Z93.3 Colostomy status

== ENCOUNTER → 2020-06-18 | Outpatient (CLI) | payer MEDICARE, MEDICAID | LOC: M LABSMTC 11:22 | PROVIDERS: ATTEND Anesthesiology | DX: Z11.59 Encounter for screening for other viral diseases (principal) | CPT/HCPCS: C9803; U0003 ==

== ENCOUNTER → 2020-08-13 | Outpatient (CLI) | payer MEDICARE, MEDICAID | LOC: M LABSMTC 11:45 | PROVIDERS: ATTEND Anesthesiology | DX: Z01.818 Encounter for other preprocedural examination (principal); Z20.828 Contact with and (suspected) exposure to other viral communicable diseases | CPT/HCPCS: C9803; U0003 ==

== ENCOUNTER 2020-08-18 06:51 | Day surgery (SDC) | payer MEDICARE, MEDICAID ==
[~2020-08-18] VITALS: Ht 157.5 cm; Wt 75.3 kg
[~2020-08-18 06:51] MED LIST changes: +NS 1,000 ML IV ONE
== END 2020-08-19 10:02 | disposition home or self-care (01) ==
LOC: M OPP 06:51
PROVIDERS: ATTEND Surgery
DX: Z48.815 Encounter for surgical aftercare following surgery on the digestive system (principal); Z53.09 Procedure and treatment not carried out because of other contraindication

== ENCOUNTER 2022-11-09 22:42 | Inpatient (IN) | payer MEDICARE, MEDICAID ==
[~2022-11-09] VITALS: Ht 157.5 cm; Wt 95.5 kg
[~2022-11-09 22:42] MED LIST changes: -KLOR10TA76 PO; -NS 1,000 ML IV ONE; -PEG1POW PO; +POLY17PO18 PO; +POTA-136 PO; +RISP-8 PO; -RISP1TAB3 PO
[2022-11-10] VITALS (61 sets, daily range): BP systolic 80–136; BP diastolic 42–74
[2022-11-10] MEDS ORDERED: GLUCAGON INJ 1MG VIAL SC PRN (02:05)
[2022-11-10] MEDS ORDERED: GLUCOSE 4GM CHEW TABLET PO PRN (02:05)
[2022-11-10] MEDS ORDERED: HYDROMORPHONE HCL 0.5 MG/ 0.5 ML SYRINGE IV PRN (02:05)
[2022-11-10] MEDS ORDERED: DEXTROSE 50% 50ML SYRINGE IV PRN (02:05)
[2022-11-10 02:37] LABS: HEMATOCRIT 41.8 % (36.0-47.0); HEMOGLOBIN 13.7 g/dl (12.0-15.5); MEAN CORPUSCULAR HGB CONC 32.8 g/dl (32.0-36.5); MEAN CORPUSCULAR VOLUME 85.3 fl (80.0-96.0); PLATELET COUNT, AUTOMATED 227 10^3/uL (150-450); WHITE BLOOD COUNT 13.2 10^3/uL (4.0-10.0)
[2022-11-10 03:01] LABS: ALBUMIN 3.1 G/DL (3.2-5.2); BILIRUBIN,TOTAL 1.1 MG/DL (0.3-1.2); CREATININE FOR GFR 1.45 MG/DL (0.55-1.30); GLOMERULAR FILTRATION RATE 37.3 (>39); POTASSIUM SERUM 3.7 MMOL/L (3.5-5.1); TOTAL PROTEIN 6.2 G/DL (5.7-8.2)
[2022-11-10 03:28] LABS: THYROID STIMULATING HORMONE 46.88 uIU/ML (0.55-4.78)
[2022-11-10] MEDS: NOREPINEPHRINE 4MG IN D5 250ML 4 MG in IV 1 EA IV SCH ×8 (03:47→21:13)
[2022-11-10] MEDS ORDERED: ASPI-161 PO (06:26)
[2022-11-10] MEDS ORDERED: SYNT100T PO (06:26)
[2022-11-10] MEDS ORDERED: ASPI-255 PO (06:26)
[2022-11-10] MEDS ORDERED: MAXI0.1S4 OD (06:26)
[2022-11-10] MEDS ORDERED: VITA200016 PO (06:26)
[2022-11-10] MEDS ORDERED: SITA50TAB PO (06:26)
[2022-11-10] MEDS ORDERED: FARX1TAB5 PO (06:26)
[2022-11-10] MEDS ORDERED: HOME MED LIST COMPLETE! XX SCH (06:30)
[2022-11-10] MEDS ORDERED: LR 1,000 ML IV ONE (07:45)
[2022-11-10] MEDS: INSULIN LISPRO (NovoLOG) PER UNIT SC SCH ×4 (08:14→20:15)
[2022-11-10] MEDS: LEVOTHYROXINE 100MCG TABLET (0.1MG) PO SCH (08:31)
[2022-11-10] MEDS: HYDROCORTISONE 100MG/2ML VIAL IV SCH ×3 (08:31→23:40)
[2022-11-10] MEDS: oxyBUTYnin 5 MG TAB PO SCH ×2 (09:36→20:16)
[2022-11-10] MEDS: CEFEPIME HCL 1 GM in D5W MINI-BAG PLUS 50 ML IV SCH ×2 (09:37→20:17)
[2022-11-10] MEDS ORDERED: LR 500 ML IV ONE (15:55)
[2022-11-11] VITALS (10 sets, daily range): BP systolic 105–118; BP diastolic 51–64
[2022-11-11] MEDS: NOREPINEPHRINE 4MG IN D5 250ML 4 MG in IV 1 EA IV SCH ×2 (03:52)
[2022-11-11 05:20] LABS: BASO % 0.3 % (0.0-1.0); EOS % 0.2 % (0.0-3.0); HEMATOCRIT 36.9 % (36.0-47.0); HEMOGLOBIN 12.1 g/dl (12.0-15.5); LYMPH # 0.8 10^3/uL (1.5-5.0); LYMPH % 5.8 % (24.0-44.0); MEAN CORPUSCULAR HEMOGLOBIN 28.3 pg (27.0-33.0); MEAN CORPUSCULAR HGB CONC 32.8 g/dl (32.0-36.5); MEAN CORPUSCULAR VOLUME 86.2 fl (80.0-96.0); MONO # 0.5 10^3/uL (0.0-0.8); NEUTROPHILS # 11.6 10^3/uL (1.5-8.5); NEUTROPHILS % 88.9 % (36.0-66.0); PLATELET COUNT, AUTOMATED 206 10^3/uL (150-450); RED BLOOD COUNT 4.28 10^6/uL (4.00-5.40); WHITE BLOOD COUNT 13.1 10^3/uL (4.0-10.0)
[2022-11-11 05:45] LABS: ALBUMIN 2.7 G/DL (3.2-5.2); BILIRUBIN,TOTAL 0.4 MG/DL (0.3-1.2); CALCIUM LEVEL 9.1 MG/DL (8.3-10.6); CREATININE FOR GFR 1.42 MG/DL (0.55-1.30); GLOMERULAR FILTRATION RATE 38.2 (>39); POTASSIUM SERUM 3.5 MMOL/L (3.5-5.1); TOTAL PROTEIN 5.8 G/DL (5.7-8.2)
[2022-11-11] MEDS: LEVOTHYROXINE 100MCG TABLET (0.1MG) PO SCH (05:53)
[2022-11-11] MEDS: ACETAMINOPHEN TAB 650MG DOSE (2X325MG) PO PRN (06:08)
[2022-11-11] MEDS ORDERED: POTASSIUM CHLORIDE 10MEQ SR TABLET PO ONE (06:50)
[2022-11-11] MEDS: INSULIN LISPRO (NovoLOG) PER UNIT SC SCH ×4 (08:14→21:00)
[2022-11-11] MEDS: HYDROCORTISONE 100MG/2ML VIAL IV SCH ×3 (08:15→23:25)
[2022-11-11] MEDS: CEFEPIME HCL 1 GM in D5W MINI-BAG PLUS 50 ML IV SCH ×2 (08:15→21:37)
[2022-11-11] MEDS: oxyBUTYnin 5 MG TAB PO SCH ×2 (08:15→21:36)
[2022-11-11] MEDS ORDERED: HEPARIN SOD (PORCINE) 5000UNITS/ML 1ML VIAL/SYRINGE SQ SCH (08:50)
[2022-11-11] MEDS ORDERED: DULoxetine 30MG CAPSULE (CYMBALTA) PO SCH (09:00)
[2022-11-11] MEDS ORDERED: METOPROLOL SUCC *XL* 25MG TAB (TopROL *XL*) PO SCH (09:00)
[2022-11-11] MEDS: ASPIRIN ENTERIC 325MG TAB PO SCH (09:21)
[2022-11-11] MEDS: MAXITROL OPHTH SUSP 5ML OD SCH ×4 (09:22→21:37)
[2022-11-11] MEDS ORDERED: ACETAMINOPHEN 500 MG TAB PO ONE (10:15)
[2022-11-11] MEDS: HEPARIN SOD (PORCINE) 5000UNITS/ML 1ML VIAL/SYRINGE SQ SCH ×2 (13:00→21:37)
[2022-11-11] MEDS ORDERED: SODIUM CHLORIDE 0.9% INJ 10 ML SYR IV PRN (20:05)
[2022-11-11] MEDS: SIMVASTATIN 20 MG TAB PO SCH (21:36)
[2022-11-11] MEDS: SODIUM CHLORIDE 0.9% INJ 10 ML SYR IV SCH (21:38)
[2022-11-12 06:00] VITALS: BP 126/65
[2022-11-12] MEDS: LEVOTHYROXINE 100MCG TABLET (0.1MG) PO SCH (06:29)
[2022-11-12] MEDS: HEPARIN SOD (PORCINE) 5000UNITS/ML 1ML VIAL/SYRINGE SQ SCH (06:29)
[2022-11-12] MEDS: SODIUM CHLORIDE 0.9% INJ 10 ML SYR IV SCH (06:30)
[2022-11-12] MEDS: ACETAMINOPHEN TAB 650MG DOSE (2X325MG) PO PRN (06:33)
[2022-11-12] MEDS ORDERED: ONDANSETRON 4MG 2ML VIAL IV ONE ×2 (07:05→09:00)
[2022-11-12] MEDS: INSULIN LISPRO (NovoLOG) PER UNIT SC SCH ×4 (07:30→21:00)
[2022-11-12 08:00] LABS: BASO % 0.3 % (0.0-1.0); EOS # 0.1 10^3/uL (0.0-0.5); EOS % 0.5 % (0.0-3.0); HEMATOCRIT 40.3 % (36.0-47.0); HEMOGLOBIN 12.8 g/dl (12.0-15.5); LYMPH % 8.8 % (24.0-44.0); MEAN CORPUSCULAR HEMOGLOBIN 27.5 pg (27.0-33.0); MEAN CORPUSCULAR HGB CONC 31.8 g/dl (32.0-36.5); MEAN CORPUSCULAR VOLUME 86.7 fl (80.0-96.0); MONO # 0.5 10^3/uL (0.0-0.8); MONO % 4.7 % (2.0-8.0); NEUTROPHILS # 9.7 10^3/uL (1.5-8.5); NEUTROPHILS % 85.3 % (36.0-66.0); PLATELET COUNT, AUTOMATED 218 10^3/uL (150-450); RED BLOOD COUNT 4.65 10^6/uL (4.00-5.40); WHITE BLOOD COUNT 11.4 10^3/uL (4.0-10.0)
[2022-11-12] MEDS ORDERED: METOCLOPRAMIDE INJ 10MG/2ML VIAL IV SCH (08:00)
[2022-11-12 08:25] LABS: ALBUMIN 2.9 G/DL (3.2-5.2); BILIRUBIN,TOTAL 0.4 MG/DL (0.3-1.2); CALCIUM LEVEL 9.5 MG/DL (8.3-10.6); CREATININE FOR GFR 1.54 MG/DL (0.55-1.30); GLOMERULAR FILTRATION RATE 34.8 (>39); POTASSIUM SERUM 3.4 MMOL/L (3.5-5.1); TOTAL PROTEIN 5.9 G/DL (5.7-8.2)
[2022-11-12 08:27] LABS: THYROXINE (T4) 1.3 UG/DL (4.5-10.9)
[2022-11-12 08:28] LABS: FREE THYROXINE INDEX 0.4 % (1.3-4.8); T UPTAKE 30.4 % (22.5-37.0); THYROID STIMULATING HORMONE 25.435 uIU/ML (0.55-4.78)
[2022-11-12] MEDS: MAXITROL OPHTH SUSP 5ML OD SCH ×4 (09:00→21:38)
[2022-11-12] MEDS: ASPIRIN ENTERIC 325MG TAB PO SCH (09:00)
[2022-11-12] MEDS: oxyBUTYnin 5 MG TAB PO SCH ×2 (09:00→21:00)
[2022-11-12] MEDS ORDERED: BISACODYL 10MG SUPP PR PRN (10:05)
[2022-11-12] MEDS: METOCLOPRAMIDE INJ 10MG/2ML VIAL IV SCH ×3 (11:13→22:57)
[2022-11-12] MEDS: CEFEPIME HCL 1 GM in D5W MINI-BAG PLUS 50 ML IV SCH ×2 (11:13→21:38)
[2022-11-12] MEDS: HYDROCORTISONE 100MG/2ML VIAL IV SCH ×3 (11:13→23:44)
[2022-11-12] MEDS ORDERED: ONDANSETRON 4MG 2ML VIAL IV PRN (13:00)
[2022-11-12 14:00] VITALS: BP 124/62
[2022-11-12] MEDS: metroNIDAZOLE 500 MG in IV 1 EA IV SCH ×2 (17:02→22:57)
[2022-11-12] MEDS: SIMVASTATIN 20 MG TAB PO SCH (21:00)
[2022-11-12 22:00] VITALS: BP 120/61
[2022-11-13] MEDS: METOCLOPRAMIDE INJ 10MG/2ML VIAL IV SCH ×4 (05:45→23:00)
[2022-11-13 06:00] VITALS: BP 149/75
[2022-11-13] MEDS: metroNIDAZOLE 500 MG in IV 1 EA IV SCH (06:40)
[2022-11-13] MEDS: LEVOTHYROXINE 100MCG (0.1MG) 5ML SDV PF (SOLUTION FORM) IV SCH (06:40)
[2022-11-13 07:53] LABS: BASO # 0.1 10^3/uL (0.0-0.2); BASO % 0.4 % (0.0-1.0); EOS % 0.3 % (0.0-3.0); HEMATOCRIT 41.7 % (36.0-47.0); HEMOGLOBIN 13.4 g/dl (12.0-15.5); LYMPH # 1.1 10^3/uL (1.5-5.0); LYMPH % 7.4 % (24.0-44.0); MEAN CORPUSCULAR HGB CONC 32.1 g/dl (32.0-36.5); MEAN CORPUSCULAR VOLUME 87.2 fl (80.0-96.0); MONO # 0.9 10^3/uL (0.0-0.8); MONO % 6.3 % (2.0-8.0); NEUTROPHILS # 12.4 10^3/uL (1.5-8.5); NEUTROPHILS % 84.9 % (36.0-66.0); PLATELET COUNT, AUTOMATED 255 10^3/uL (150-450); RED BLOOD COUNT 4.78 10^6/uL (4.00-5.40); WHITE BLOOD COUNT 14.6 10^3/uL (4.0-10.0)
[2022-11-13 08:00] LABS: ERYTHROCYTE SEDIMENTATION RATE 27 mm/hr (0-30)
[2022-11-13 08:18] LABS: C REACTIVE PROTEIN QUANTITATIV 14.4 MG/DL (<1.0)
[2022-11-13 08:20] LABS: BILIRUBIN,TOTAL 0.6 MG/DL (0.3-1.2); CALCIUM LEVEL 8.7 MG/DL (8.3-10.6); CREATININE FOR GFR 1.47 MG/DL (0.55-1.30); GLOMERULAR FILTRATION RATE 36.7 (>39); POTASSIUM SERUM 3.6 MMOL/L (3.5-5.1); TOTAL PROTEIN 6.5 G/DL (5.7-8.2)
[2022-11-13] MEDS: oxyBUTYnin 5 MG TAB PO SCH ×2 (08:45→21:29)
[2022-11-13] MEDS: INSULIN LISPRO (NovoLOG) PER UNIT SC SCH ×4 (08:45→21:00)
[2022-11-13] MEDS: ASPIRIN ENTERIC 325MG TAB PO SCH (08:45)
[2022-11-13] MEDS: CEFEPIME HCL 1 GM in D5W MINI-BAG PLUS 50 ML IV SCH (08:45)
[2022-11-13] MEDS: MAXITROL OPHTH SUSP 5ML OD SCH ×4 (08:46→21:30)
[2022-11-13] MEDS ORDERED: BISACODYL 10MG SUPP PR SCH (09:00)
[2022-11-13] MEDS: HYDROCORTISONE 100MG/2ML VIAL IV SCH (12:17)
[2022-11-13] MEDS: LACTULOSE 20GM/30ML SYRUP UDC PO SCH ×2 (12:17→21:29)
[2022-11-13] MEDS: BISACODYL 10MG SUPP XX SCH ×2 (12:18→21:29)
[2022-11-13 14:00] VITALS: BP 135/62
[2022-11-13] MEDS ORDERED: LevoFLOXacin 750 MG TABLET PO SCH (18:00)
[2022-11-13] MEDS: SIMVASTATIN 20 MG TAB PO SCH (21:29)
[2022-11-13 22:00] VITALS: BP 144/72
[2022-11-13 22:30] VITALS: BP 124/78
[2022-11-14] MEDS: HYDROCORTISONE 100MG/2ML VIAL IV SCH ×2 (00:19→12:00)
[2022-11-14] MEDS: METOCLOPRAMIDE INJ 10MG/2ML VIAL IV SCH ×4 (05:00→23:00)
[2022-11-14] MEDS: LEVOTHYROXINE 100MCG (0.1MG) 5ML SDV PF (SOLUTION FORM) IV SCH (05:25)
[2022-11-14 06:00] VITALS: BP 134/71
[2022-11-14 06:06] LABS: HEMATOCRIT 40.5 % (36.0-47.0); HEMOGLOBIN 13.2 g/dl (12.0-15.5); MEAN CORPUSCULAR HEMOGLOBIN 27.6 pg (27.0-33.0); MEAN CORPUSCULAR HGB CONC 32.6 g/dl (32.0-36.5); MEAN CORPUSCULAR VOLUME 84.6 fl (80.0-96.0); PLATELET COUNT, AUTOMATED 222 10^3/uL (150-450); RED BLOOD COUNT 4.79 10^6/uL (4.00-5.40); WHITE BLOOD COUNT 14.3 10^3/uL (4.0-10.0)
[2022-11-14 06:48] LABS: ATYPICAL LYMPH 2 % (0-5); BASOPHILS 1 % (0-1); LYMPHOCYTES 7 % (16-44); METAMYELOCYTES 1 % (0-0); MONOCYTES 2 % (0-5); NEUTROPHILS 73 % (28-66); PLATELET ESTIMATE NORMAL (NORMAL)
[2022-11-14] MEDS: INSULIN LISPRO (NovoLOG) PER UNIT SC SCH ×4 (07:30→21:00)
[2022-11-14 07:45] VITALS: BP 131/60
[2022-11-14] MEDS: ACETAMINOPHEN TAB 650MG DOSE (2X325MG) PO PRN (08:10)
[2022-11-14] MEDS: oxyBUTYnin 5 MG TAB PO SCH (08:55)
[2022-11-14] MEDS: ASPIRIN ENTERIC 325MG TAB PO SCH (08:55)
[2022-11-14] MEDS: LACTULOSE 20GM/30ML SYRUP UDC PO SCH (08:55)
[2022-11-14] MEDS: BISACODYL 10MG SUPP XX SCH ×2 (08:56→21:00)
[2022-11-14] MEDS: MAXITROL OPHTH SUSP 5ML OD SCH ×3 (08:56→16:52)
[2022-11-14] MEDS ORDERED: NS 1,000 ML IV SCH (13:10)
[2022-11-14] MEDS ORDERED: SIMETHICONE 80MG CHEW TAB PO SCH (18:00)
[2022-11-14] MEDS ORDERED: ROCURONIUM BROMIDE 50MG/5ML VIAL As Ordered ONE ×2 (19:40→21:07)
[2022-11-14] MEDS ORDERED: METOCLOPRAMIDE INJ 10MG/2ML VIAL As Ordered ONE (19:40)
[2022-11-14] MEDS ORDERED: ONDANSETRON 4MG 2ML VIAL As Ordered ONE (19:40)
[2022-11-14] MEDS ORDERED: SUGAMMADEX SODIUM 500 MG/5 ML VIAL (BRIDION) As Ordered ONE (19:40)
[2022-11-14] MEDS ORDERED: MIDAZOLAM INJ 2MG/2ML VIAL As Ordered ONE ×2 (19:42→23:14)
[2022-11-14] MEDS ORDERED: propofoL 200 MG/20 ML VIAL As Ordered ONE (19:42)
[2022-11-14] MEDS ORDERED: fentaNYL 250 MCG/5 ML INJECTION As Ordered ONE (19:42)
[2022-11-14] MEDS ORDERED: DESFLURANE 240 ML INHALANT As Ordered ONE ×2 (19:48→23:35)
[2022-11-14] MEDS ORDERED: SUCCINYLCHOLINE 100MG/5ML SYRINGE As Ordered ONE (20:30)
[2022-11-14] MEDS ORDERED: PHENYLEPHRINE 10MG/ML 1ML VIAL As Ordered ONE ×2 (20:51→23:44)
[2022-11-14] MEDS ORDERED: HYDROmorphone HCL 2MG/ML 1ML VIAL As Ordered ONE (21:05)
[2022-11-14] MEDS ORDERED: ACETAMINOPHEN 1000MG 100ML IV BAG As Ordered ONE (21:28)
[2022-11-14] MEDS ORDERED: NS 1,000 ML IV ONE (23:35)
[2022-11-14] MEDS ORDERED: FENTANYL DRIP LOCK BOX KEY 1 EACH XX PRN (23:35)
[2022-11-14] MEDS ORDERED: PIPERACILLIN/TAZOBACTAM SOD 2.25 GM in D5W MINI-BAG PLUS 50 ML IV SCH (23:35)
[2022-11-14] MEDS ORDERED: HYDROMORPHONE HCL 0.5 MG/ 0.5 ML SYRINGE IV PRN (23:55)
[2022-11-14] MEDS ORDERED: fentaNYL 100 MCG/2 ML INJECTION IV PRN (23:55)
[2022-11-14] MEDS ORDERED: LR 1,000 ML IV SCH (23:55)
[2022-11-14] MEDS ORDERED: ONDANSETRON 4MG 2ML VIAL IV PRN (23:55)
[2022-11-14] MEDS ORDERED: oxyCODONE 5MG TAB PO PRN (23:55)
[2022-11-15] VITALS (147 sets, daily range): BP systolic 64–209; BP diastolic 33–86
[2022-11-15] MEDS: fentaNYL CITRATE/NaCl 1,000 MCG in IV 1 EA IV SCH ×2 (00:05→23:25)
[2022-11-15] MEDS: PANTOPRAZOLE 40MG VIAL IV SCH ×2 (00:54→13:58)
[2022-11-15] MEDS: PIPERACILLIN/TAZOBACTAM SOD 2.25 GM in D5W MINI-BAG PLUS 50 ML IV SCH ×2 (00:54→05:38)
[2022-11-15] MEDS: INSULIN LISPRO (NovoLOG) PER UNIT SC SCH ×7 (00:54→23:25)
[2022-11-15] MEDS: HYDROCORTISONE 100MG/2ML VIAL IV SCH ×3 (00:55→23:12)
[2022-11-15] MEDS: NS 1,000 ML IV SCH ×2 (00:55→07:32)
[2022-11-15] MEDS: MAXITROL OPHTH SUSP 5ML OD SCH ×5 (01:18→20:19)
[2022-11-15 01:35] LABS: ABG BASE EXCESS -6.8 (-2.0-2.0); ABG HCO3 18.9 MEQ/L (22.0-26.0); ABG O2 SATURATION 98.3 % (95.0-99.0); ABG PARTIAL PRESSURE CO2 38.4 mmHg (35.0-45.0); ABG PARTIAL PRESSURE O2 122.9 mmHg (75.0-100.0); ABG pH (ARTERIAL) 7.309 UNITS (7.350-7.450)
[2022-11-15 03:08] LABS: HEMATOCRIT 45.1 % (36.0-47.0); HEMOGLOBIN 14.1 g/dl (12.0-15.5); MEAN CORPUSCULAR HGB CONC 31.3 g/dl (32.0-36.5); MEAN CORPUSCULAR VOLUME 89.5 fl (80.0-96.0); PLATELET COUNT, AUTOMATED 203 10^3/uL (150-450); RED BLOOD COUNT 5.04 10^6/uL (4.00-5.40); WHITE BLOOD COUNT 11.6 10^3/uL (4.0-10.0)
[2022-11-15 03:58] LABS: ALBUMIN 2.3 G/DL (3.2-5.2); BILIRUBIN,TOTAL 0.5 MG/DL (0.3-1.2); CALCIUM LEVEL 7.8 MG/DL (8.3-10.6); CREATININE FOR GFR 1.24 MG/DL (0.55-1.30); GLOMERULAR FILTRATION RATE 44.7 (>39); MAGNESIUM LEVEL 1.6 MG/DL (1.8-2.4); PHOSPHORUS LEVEL 2.8 MG/DL (2.4-5.1); POTASSIUM SERUM 3.5 MMOL/L (3.5-5.1); TOTAL PROTEIN 4.4 G/DL (5.7-8.2)
[2022-11-15] MEDS ORDERED: NS 1,000 ML IV ONE (04:40)
[2022-11-15] MEDS: METOCLOPRAMIDE INJ 10MG/2ML VIAL IV SCH ×4 (04:42→23:12)
[2022-11-15] MEDS: MAG SULF 1GM/100ML (MAG RUN) 1 GM in IV 1 EA IV SCH ×2 (04:45→05:54)
[2022-11-15] MEDS: LEVOTHYROXINE 100MCG (0.1MG) 5ML SDV PF (SOLUTION FORM) IV SCH (05:38)
[2022-11-15] MEDS ORDERED: NS 500 ML IV ONE (05:45)
[2022-11-15 06:27] LABS: ABG BASE EXCESS -7.7 (-2.0-2.0); ABG HCO3 18.8 MEQ/L (22.0-26.0); ABG O2 SATURATION 95.8 % (95.0-99.0); ABG PARTIAL PRESSURE CO2 41.4 mmHg (35.0-45.0); ABG PARTIAL PRESSURE O2 86.4 mmHg (75.0-100.0); ABG STANDARD HCO3 18.3 MEQ/L (22.0-26.0); ABG pH (ARTERIAL) 7.274 UNITS (7.350-7.450)
[2022-11-15] MEDS: CHLORHEXIDINE GLUCONATE 0.12 % 15ML UDC (PERIDEX ORAL RINSE) MT SCH ×2 (07:32→20:19)
[2022-11-15] MEDS ORDERED: NOREPINEPHRINE 4MG IN D5 250ML 4 MG in IV 1 EA IV SCH ×2 (08:00)
[2022-11-15] MEDS ORDERED: LR 500 ML IV ONE (08:25)
[2022-11-15] MEDS ORDERED: ATROPINE SULF 1MG/10ML SYRINGE As Ordered ONE (08:46)
[2022-11-15] MEDS ORDERED: HYDROCORTISONE 100MG/2ML VIAL IV ONE (09:00)
[2022-11-15] MEDS ORDERED: MIDAZOLAM INJ 2MG/2ML VIAL IV ONE (09:30)
[2022-11-15] MEDS: PIPERACILLIN/TAZOBACTAM SOD 3.375 GM in D5W MINI-BAG PLUS 50 ML IV SCH ×3 (11:52→23:12)
[2022-11-15 12:32] LABS: HEMATOCRIT 34.2 % (36.0-47.0); MEAN CORPUSCULAR HGB CONC 32.7 g/dl (32.0-36.5); MEAN CORPUSCULAR VOLUME 85.5 fl (80.0-96.0); PLATELET COUNT, AUTOMATED 203 10^3/uL (150-450); WHITE BLOOD COUNT 10.9 10^3/uL (4.0-10.0)
[2022-11-15 12:33] LABS: HEMOGLOBIN 11.2 g/dl (12.0-15.5)
[2022-11-15 12:51] LABS: ALBUMIN 2.1 G/DL (3.2-5.2); BILIRUBIN,TOTAL 0.6 MG/DL (0.3-1.2); CALCIUM LEVEL 7.2 MG/DL (8.3-10.6); CREATININE FOR GFR 1.05 MG/DL (0.55-1.30); GLOMERULAR FILTRATION RATE 54.1 (>39); POTASSIUM SERUM 3.3 MMOL/L (3.5-5.1); TOTAL PROTEIN 4.5 G/DL (5.7-8.2)
[2022-11-15] MEDS ORDERED: KCL 20MEQ IN 100ML SWI (KRUN) 20 MEQ in IV 1 EA IV SCH ×2 (13:20)
[2022-11-15] MEDS: NOREPINEPHRINE BITARTRATE 16 MG in D5W 484 ML IV SCH ×2 (13:52→15:06)
[2022-11-15] MEDS: KCL 20MEQ IN 100ML SWI (KRUN) 20 MEQ in IV 1 EA IV SCH ×4 (13:58→14:00)
[2022-11-15] MEDS ORDERED: LR 1,000 ML IV ONE (16:20)
[2022-11-15] MEDS: LR 1,000 ML IV SCH (17:32)
[2022-11-16] VITALS (39 sets, daily range): BP systolic 92–152; BP diastolic 45–97
[2022-11-16] MEDS: PANTOPRAZOLE 40MG VIAL IV SCH ×2 (00:20→12:42)
[2022-11-16] MEDS: MIDAZOLAM INJ 2MG/2ML VIAL IV PRN ×2 (00:20→05:18)
[2022-11-16] MEDS: LR 1,000 ML IV SCH ×2 (02:28→06:45)
[2022-11-16] MEDS: INSULIN LISPRO (NovoLOG) PER UNIT SC SCH ×5 (03:57→23:41)
[2022-11-16 04:14] LABS: HEMOGLOBIN 9.4 g/dl (12.0-15.5); MEAN CORPUSCULAR HEMOGLOBIN 27.8 pg (27.0-33.0); MEAN CORPUSCULAR HGB CONC 32.4 g/dl (32.0-36.5); MEAN CORPUSCULAR VOLUME 85.8 fl (80.0-96.0); PLATELET COUNT, AUTOMATED 169 10^3/uL (150-450); RED BLOOD COUNT 3.38 10^6/uL (4.00-5.40); WHITE BLOOD COUNT 8.4 10^3/uL (4.0-10.0)
[2022-11-16] MEDS ORDERED: LACTATED RINGER'S 1000 ML IV ONE (04:35)
[2022-11-16 04:41] LABS: C REACTIVE PROTEIN QUANTITATIV 15.6 MG/DL (<1.0)
[2022-11-16 04:47] LABS: ALBUMIN 1.9 G/DL (3.2-5.2); BILIRUBIN,TOTAL 0.4 MG/DL (0.3-1.2); CALCIUM LEVEL 7.5 MG/DL (8.3-10.6); CREATININE FOR GFR 1.18 MG/DL (0.55-1.30); GLOMERULAR FILTRATION RATE 47.3 (>39); POTASSIUM SERUM 3.9 MMOL/L (3.5-5.1); TOTAL PROTEIN 3.9 G/DL (5.7-8.2)
[2022-11-16] MEDS: METOCLOPRAMIDE INJ 10MG/2ML VIAL IV SCH ×4 (05:16→22:16)
[2022-11-16] MEDS: LEVOTHYROXINE 100MCG (0.1MG) 5ML SDV PF (SOLUTION FORM) IV SCH (05:16)
[2022-11-16] MEDS: PIPERACILLIN/TAZOBACTAM SOD 3.375 GM in D5W MINI-BAG PLUS 50 ML IV SCH ×4 (05:18→23:41)
[2022-11-16 05:36] LABS: ABG BASE EXCESS -3.1 (-2.0-2.0); ABG O2 SATURATION 96.5 % (95.0-99.0); ABG PARTIAL PRESSURE O2 88.1 mmHg (75.0-100.0); ABG STANDARD HCO3 21.9 MEQ/L (22.0-26.0); ABG TOTAL CO2 22.1 MEQ/L (23.0-31.0); ABG pH (ARTERIAL) 7.409 UNITS (7.350-7.450)
[2022-11-16] MEDS: MAXITROL OPHTH SUSP 5ML OD SCH ×4 (09:04→20:15)
[2022-11-16] MEDS: HYDROCORTISONE 100MG/2ML VIAL IV SCH ×3 (09:04→23:41)
[2022-11-16] MEDS: CHLORHEXIDINE GLUCONATE 0.12 % 15ML UDC (PERIDEX ORAL RINSE) MT SCH ×2 (09:04→20:11)
[2022-11-16 14:19] LABS: ABG BASE EXCESS -3.3 (-2.0-2.0); ABG PARTIAL PRESSURE CO2 35.4 mmHg (35.0-45.0); ABG STANDARD HCO3 21.7 MEQ/L (22.0-26.0); ABG TOTAL CO2 22.1 MEQ/L (23.0-31.0); ABG pH (ARTERIAL) 7.392 UNITS (7.350-7.450)
[2022-11-16] MEDS ORDERED: fentaNYL 100 MCG/2 ML INJECTION IV PRN (14:40)
[2022-11-16] MEDS: ALBUTEROL SULFATE 2.5MG/0.5ML INH NEB SOLN NEB SCH ×2 (15:38→23:03)
[2022-11-17] VITALS (11 sets, daily range): BP systolic 129–162; BP diastolic 60–81
[2022-11-17] MEDS: PANTOPRAZOLE 40MG VIAL IV SCH ×2 (01:07→13:41)
[2022-11-17 04:47] LABS: HEMOGLOBIN 9.9 g/dl (12.0-15.5); MEAN CORPUSCULAR HEMOGLOBIN 27.9 pg (27.0-33.0); MEAN CORPUSCULAR HGB CONC 31.9 g/dl (32.0-36.5); MEAN CORPUSCULAR VOLUME 87.3 fl (80.0-96.0); PLATELET COUNT, AUTOMATED 190 10^3/uL (150-450); RED BLOOD COUNT 3.55 10^6/uL (4.00-5.40); WHITE BLOOD COUNT 9.8 10^3/uL (4.0-10.0)
[2022-11-17 05:17] LABS: BILIRUBIN,TOTAL 0.4 MG/DL (0.3-1.2); CALCIUM LEVEL 7.5 MG/DL (8.3-10.6); CREATININE FOR GFR 1.09 MG/DL (0.55-1.30); GLOMERULAR FILTRATION RATE 51.8 (>39); MAGNESIUM LEVEL 1.9 MG/DL (1.8-2.4); POTASSIUM SERUM 3.6 MMOL/L (3.5-5.1); TOTAL PROTEIN 4.3 G/DL (5.7-8.2)
[2022-11-17] MEDS: METOCLOPRAMIDE INJ 10MG/2ML VIAL IV SCH ×4 (05:20→23:30)
[2022-11-17] MEDS: LR 1,000 ML IV SCH (05:20)
[2022-11-17] MEDS: LEVOTHYROXINE 100MCG (0.1MG) 5ML SDV PF (SOLUTION FORM) IV SCH (05:20)
[2022-11-17] MEDS: PIPERACILLIN/TAZOBACTAM SOD 3.375 GM in D5W MINI-BAG PLUS 50 ML IV SCH ×4 (05:20→23:31)
[2022-11-17] MEDS: INSULIN LISPRO (NovoLOG) PER UNIT SC SCH ×4 (05:27→23:31)
[2022-11-17 05:56] LABS: ABG BASE EXCESS -3.1 (-2.0-2.0); ABG HCO3 21.4 MEQ/L (22.0-26.0); ABG O2 SATURATION 97.6 % (95.0-99.0); ABG PARTIAL PRESSURE CO2 36.4 mmHg (35.0-45.0); ABG PARTIAL PRESSURE O2 101.9 mmHg (75.0-100.0); ABG STANDARD HCO3 21.9 MEQ/L (22.0-26.0); ABG TOTAL CO2 22.6 MEQ/L (23.0-31.0); ABG pH (ARTERIAL) 7.388 UNITS (7.350-7.450)
[2022-11-17] MEDS: ALBUTEROL SULFATE 2.5MG/0.5ML INH NEB SOLN NEB SCH ×2 (08:13→15:56)
[2022-11-17] MEDS: HYDROCORTISONE 100MG/2ML VIAL IV SCH ×2 (09:59→20:20)
[2022-11-17] MEDS: MAXITROL OPHTH SUSP 5ML OD SCH ×4 (09:59→20:20)
[2022-11-17] MEDS: CHLORHEXIDINE GLUCONATE 0.12 % 15ML UDC (PERIDEX ORAL RINSE) MT SCH (10:28)
[2022-11-18] VITALS (8 sets, daily range): BP systolic 119–156; BP diastolic 55–72
[2022-11-18] MEDS: ALBUTEROL SULFATE 2.5MG/0.5ML INH NEB SOLN NEB SCH ×4 (00:02→23:49)
[2022-11-18] MEDS: PANTOPRAZOLE 40MG VIAL IV SCH ×2 (00:45→13:17)
[2022-11-18] MEDS ORDERED: NS 1,000 ML IV SCH (04:55)
[2022-11-18 05:00] LABS: HEMATOCRIT 29.5 % (36.0-47.0); HEMOGLOBIN 9.4 g/dl (12.0-15.5); MEAN CORPUSCULAR HEMOGLOBIN 27.8 pg (27.0-33.0); MEAN CORPUSCULAR HGB CONC 31.9 g/dl (32.0-36.5); MEAN CORPUSCULAR VOLUME 87.3 fl (80.0-96.0); PLATELET COUNT, AUTOMATED 192 10^3/uL (150-450); RED BLOOD COUNT 3.38 10^6/uL (4.00-5.40); WHITE BLOOD COUNT 8.1 10^3/uL (4.0-10.0)
[2022-11-18] MEDS: METOCLOPRAMIDE INJ 10MG/2ML VIAL IV SCH ×4 (05:05→23:21)
[2022-11-18 05:22] LABS: ALBUMIN 2.1 G/DL (3.2-5.2); BILIRUBIN,TOTAL 0.4 MG/DL (0.3-1.2); CALCIUM LEVEL 7.6 MG/DL (8.3-10.6); GLOMERULAR FILTRATION RATE 57.2 (>39); MAGNESIUM LEVEL 1.9 MG/DL (1.8-2.4); POTASSIUM SERUM 3.4 MMOL/L (3.5-5.1); TOTAL PROTEIN 4.5 G/DL (5.7-8.2)
[2022-11-18] MEDS: INSULIN LISPRO (NovoLOG) PER UNIT SC SCH ×4 (06:00→20:20)
[2022-11-18] MEDS: LEVOTHYROXINE 100MCG (0.1MG) 5ML SDV PF (SOLUTION FORM) IV SCH (06:28)
[2022-11-18] MEDS: PIPERACILLIN/TAZOBACTAM SOD 3.375 GM in D5W MINI-BAG PLUS 50 ML IV SCH ×4 (06:28→23:21)
[2022-11-18] MEDS: HYDROCORTISONE 100MG/2ML VIAL IV SCH ×2 (08:24→20:20)
[2022-11-18] MEDS: MAXITROL OPHTH SUSP 5ML OD SCH ×4 (08:25→20:20)
[2022-11-18] MEDS ORDERED: POTASSIUM ACETATE IV SCH (10:00)
[2022-11-18] MEDS ORDERED: NS IV SCH (10:00)
[2022-11-18] MEDS: POTASSIUM CHLORIDE INJ 40 MEQ in NS 1,000 ML IV SCH (13:48)
[2022-11-19] MEDS: PANTOPRAZOLE 40MG VIAL IV SCH ×2 (00:33→12:35)
[2022-11-19 03:33] VITALS: BP 149/76
[2022-11-19] MEDS: POTASSIUM CHLORIDE INJ 40 MEQ in NS 1,000 ML IV SCH (03:33)
[2022-11-19 04:22] LABS: HEMATOCRIT 30.4 % (36.0-47.0); HEMOGLOBIN 9.5 g/dl (12.0-15.5); MEAN CORPUSCULAR HEMOGLOBIN 27.7 pg (27.0-33.0); MEAN CORPUSCULAR HGB CONC 31.3 g/dl (32.0-36.5); MEAN CORPUSCULAR VOLUME 88.6 fl (80.0-96.0); PLATELET COUNT, AUTOMATED 180 10^3/uL (150-450); RED BLOOD COUNT 3.43 10^6/uL (4.00-5.40); WHITE BLOOD COUNT 7.5 10^3/uL (4.0-10.0)
[2022-11-19 05:02] LABS: ALBUMIN 2.1 G/DL (3.2-5.2); ALKALINE PHOSPHATASE 73 U/L (46-116); ALT/SGPT 17 U/L (7.0-40); AST/SGOT 18 U/L (<34); BILIRUBIN,TOTAL 0.6 MG/DL (0.3-1.2); BLOOD UREA NITROGEN 11 MG/DL (9-23); CALCIUM LEVEL 7.4 MG/DL (8.3-10.6); CARBON DIOXIDE LEVEL 29 MMOL/L (20-31); CHLORIDE LEVEL 104 MMOL/L (98-107); CREATININE FOR GFR 0.93 MG/DL (0.55-1.30); GLOMERULAR FILTRATION RATE > 60.0 (>39); GLUCOSE, FASTING 167 MG/DL (74-106); MAGNESIUM LEVEL 1.8 MG/DL (1.8-2.4); POTASSIUM SERUM 3.5 MMOL/L (3.5-5.1); SODIUM LEVEL 138 MMOL/L (136-145); THYROID STIMULATING HORMONE 11.803 uIU/ML (0.55-4.78); TOTAL PROTEIN 4.6 G/DL (5.7-8.2)
[2022-11-19] MEDS: METOCLOPRAMIDE INJ 10MG/2ML VIAL IV SCH ×4 (05:57→22:37)
[2022-11-19] MEDS: PIPERACILLIN/TAZOBACTAM SOD 3.375 GM in D5W MINI-BAG PLUS 50 ML IV SCH ×3 (06:00→18:14)
[2022-11-19] MEDS ORDERED: LEVOTHYROXINE 150MCG TABLET (0.15MG) PO SCH (06:00)
[2022-11-19 07:28] VITALS: BP 143/67
[2022-11-19] MEDS: INSULIN LISPRO (NovoLOG) PER UNIT SC SCH ×4 (08:18→21:00)
[2022-11-19] MEDS: HYDROCORTISONE 100MG/2ML VIAL IV SCH ×2 (08:19→22:36)
[2022-11-19] MEDS: MAXITROL OPHTH SUSP 5ML OD SCH ×4 (08:19→22:37)
[2022-11-19] MEDS: ALBUTEROL SULFATE 2.5MG/0.5ML INH NEB SOLN NEB SCH ×2 (08:35→23:16)
[2022-11-19 10:37] VITALS: BP 129/71
[2022-11-19] MEDS: SODIUM CHLORIDE 0.9% INJ 10 ML SYR IV SCH ×2 (13:04→22:38)
[2022-11-19 14:00] VITALS: BP 143/78
[2022-11-19 20:30] VITALS: BP 147/78
[2022-11-20] MEDS: PIPERACILLIN/TAZOBACTAM SOD 3.375 GM in D5W MINI-BAG PLUS 50 ML IV SCH ×5 (00:08→22:56)
[2022-11-20] MEDS: PANTOPRAZOLE 40MG VIAL IV SCH ×2 (00:08→12:07)
[2022-11-20 04:56] VITALS: BP 149/78
[2022-11-20] MEDS: METOCLOPRAMIDE INJ 10MG/2ML VIAL IV SCH ×2 (05:35→12:07)
[2022-11-20] MEDS: LEVOTHYROXINE 125MCG TABLET (0.125MG) PO SCH (05:36)
[2022-11-20] MEDS: SODIUM CHLORIDE 0.9% INJ 10 ML SYR IV SCH ×3 (05:36→22:22)
[2022-11-20 06:01] LABS: HEMATOCRIT 31.8 % (36.0-47.0); HEMOGLOBIN 10.1 g/dl (12.0-15.5); MEAN CORPUSCULAR HEMOGLOBIN 27.9 pg (27.0-33.0); MEAN CORPUSCULAR HGB CONC 31.8 g/dl (32.0-36.5); MEAN CORPUSCULAR VOLUME 87.8 fl (80.0-96.0); PLATELET COUNT, AUTOMATED 184 10^3/uL (150-450); RED BLOOD COUNT 3.62 10^6/uL (4.00-5.40); WHITE BLOOD COUNT 8.6 10^3/uL (4.0-10.0)
[2022-11-20 06:40] LABS: ALBUMIN 2.2 G/DL (3.2-5.2); ALKALINE PHOSPHATASE 80 U/L (46-116); ALT/SGPT 19 U/L (7.0-40); AST/SGOT 21 U/L (<34); BILIRUBIN,TOTAL 0.6 MG/DL (0.3-1.2); BLOOD UREA NITROGEN 10 MG/DL (9-23); CALCIUM LEVEL 7.2 MG/DL (8.3-10.6); CARBON DIOXIDE LEVEL 28 MMOL/L (20-31); CHLORIDE LEVEL 104 MMOL/L (98-107); CREATININE FOR GFR 0.85 MG/DL (0.55-1.30); GLOMERULAR FILTRATION RATE > 60.0 (>39); GLUCOSE, FASTING 152 MG/DL (74-106); MAGNESIUM LEVEL 1.6 MG/DL (1.8-2.4); POTASSIUM SERUM 3.5 MMOL/L (3.5-5.1); SODIUM LEVEL 137 MMOL/L (136-145); TOTAL PROTEIN 4.7 G/DL (5.7-8.2)
[2022-11-20] MEDS ORDERED: MAG SULF 1GM/100ML (MAG RUN) 1 GM in IV 1 EA IV ONE (07:15)
[2022-11-20] MEDS: ALBUTEROL SULFATE 2.5MG/0.5ML INH NEB SOLN NEB SCH ×3 (07:35→23:55)
[2022-11-20] MEDS: HYDROCORTISONE 100MG/2ML VIAL IV SCH (08:32)
[2022-11-20] MEDS: INSULIN LISPRO (NovoLOG) PER UNIT SC SCH ×4 (08:33→21:00)
[2022-11-20] MEDS: MAXITROL OPHTH SUSP 5ML OD SCH ×4 (08:33→22:22)
[2022-11-20] MEDS ORDERED: METOCLOPRAMIDE INJ 10MG/2ML VIAL IV PRN (13:25)
[2022-11-20 14:00] VITALS: BP 155/78
[2022-11-20] MEDS: hydroCHLOROthiazide 12.5 MG CAPSULE PO SCH (14:02)
[2022-11-20 22:00] VITALS: BP 119/73
[2022-11-20] MEDS: PANTOPRAZOLE 40MG TAB (PROTONIX) PO SCH (22:22)
[2022-11-21 05:48] LABS: HEMATOCRIT 32.1 % (36.0-47.0); HEMOGLOBIN 10.4 g/dl (12.0-15.5); MEAN CORPUSCULAR HEMOGLOBIN 28.3 pg (27.0-33.0); MEAN CORPUSCULAR HGB CONC 32.4 g/dl (32.0-36.5); MEAN CORPUSCULAR VOLUME 87.2 fl (80.0-96.0); PLATELET COUNT, AUTOMATED 181 10^3/uL (150-450); RED BLOOD COUNT 3.68 10^6/uL (4.00-5.40)
[2022-11-21 06:00] VITALS: BP 121/71
[2022-11-21] MEDS: SODIUM CHLORIDE 0.9% INJ 10 ML SYR IV SCH ×3 (06:02→20:50)
[2022-11-21] MEDS: LEVOTHYROXINE 125MCG TABLET (0.125MG) PO SCH (06:02)
[2022-11-21] MEDS: PIPERACILLIN/TAZOBACTAM SOD 3.375 GM in D5W MINI-BAG PLUS 50 ML IV SCH ×3 (06:03→17:56)
[2022-11-21] MEDS: ALBUTEROL SULFATE 2.5MG/0.5ML INH NEB SOLN NEB SCH ×3 (07:09→23:15)
[2022-11-21] MEDS: INSULIN LISPRO (NovoLOG) PER UNIT SC SCH ×4 (08:22→20:44)
[2022-11-21 08:38] LABS: ALBUMIN 2.3 G/DL (3.2-5.2); ALKALINE PHOSPHATASE 83 U/L (46-116); ALT/SGPT 21 U/L (7.0-40); AST/SGOT 23 U/L (<34); BILIRUBIN,TOTAL 0.6 MG/DL (0.3-1.2); BLOOD UREA NITROGEN 11 MG/DL (9-23); CALCIUM LEVEL 7.9 MG/DL (8.3-10.6); CARBON DIOXIDE LEVEL 31 MMOL/L (20-31); CHLORIDE LEVEL 99 MMOL/L (98-107); CREATININE FOR GFR 0.88 MG/DL (0.55-1.30); GLOMERULAR FILTRATION RATE > 60.0 (>39); GLUCOSE, FASTING 94 MG/DL (74-106); MAGNESIUM LEVEL 1.6 MG/DL (1.8-2.4); SODIUM LEVEL 137 MMOL/L (136-145); TOTAL PROTEIN 4.7 G/DL (5.7-8.2)
[2022-11-21] MEDS: hydroCHLOROthiazide 12.5 MG CAPSULE PO SCH (09:00)
[2022-11-21] MEDS: PANTOPRAZOLE 40MG TAB (PROTONIX) PO SCH ×2 (10:13→20:49)
[2022-11-21] MEDS: HYDROCORTISONE 100MG/2ML VIAL IV SCH (10:14)
[2022-11-21] MEDS: MAXITROL OPHTH SUSP 5ML OD SCH ×4 (10:15→20:49)
[2022-11-21 20:39] VITALS: BP 140/64
[2022-11-22] MEDS: PIPERACILLIN/TAZOBACTAM SOD 3.375 GM in D5W MINI-BAG PLUS 50 ML IV SCH ×2 (00:24→06:17)
[2022-11-22 06:00] VITALS: BP 155/74
[2022-11-22] MEDS: LEVOTHYROXINE 125MCG TABLET (0.125MG) PO SCH (06:16)
[2022-11-22] MEDS: SODIUM CHLORIDE 0.9% INJ 10 ML SYR IV SCH ×3 (06:17→22:31)
[2022-11-22 06:22] LABS: HEMATOCRIT 33.3 % (36.0-47.0); HEMOGLOBIN 10.4 g/dl (12.0-15.5); MEAN CORPUSCULAR HEMOGLOBIN 27.5 pg (27.0-33.0); MEAN CORPUSCULAR HGB CONC 31.2 g/dl (32.0-36.5); MEAN CORPUSCULAR VOLUME 88.1 fl (80.0-96.0); PLATELET COUNT, AUTOMATED 184 10^3/uL (150-450); RED BLOOD COUNT 3.78 10^6/uL (4.00-5.40); WHITE BLOOD COUNT 7.8 10^3/uL (4.0-10.0)
[2022-11-22 06:50] LABS: ALBUMIN 2.3 G/DL (3.2-5.2); ALKALINE PHOSPHATASE 71 U/L (46-116); ALT/SGPT 17 U/L (7.0-40); AST/SGOT 15 U/L (<34); BILIRUBIN,TOTAL 0.5 MG/DL (0.3-1.2); BLOOD UREA NITROGEN 11 MG/DL (9-23); CALCIUM LEVEL 7.9 MG/DL (8.3-10.6); CARBON DIOXIDE LEVEL 36 MMOL/L (20-31); CHLORIDE LEVEL 98 MMOL/L (98-107); CREATININE FOR GFR 0.94 MG/DL (0.55-1.30); GLOMERULAR FILTRATION RATE > 60.0 (>39); GLUCOSE, FASTING 100 MG/DL (74-106); MAGNESIUM LEVEL 1.6 MG/DL (1.8-2.4); POTASSIUM SERUM 3.2 MMOL/L (3.5-5.1); SODIUM LEVEL 137 MMOL/L (136-145); TOTAL PROTEIN 4.8 G/DL (5.7-8.2)
[2022-11-22] MEDS: ALBUTEROL SULFATE 2.5MG/0.5ML INH NEB SOLN NEB SCH ×3 (07:16→23:15)
[2022-11-22] MEDS: INSULIN LISPRO (NovoLOG) PER UNIT SC SCH ×4 (07:30→20:27)
[2022-11-22] MEDS ORDERED: MAG SULF 1GM/100ML (MAG RUN) 1 GM in IV 1 EA IV ONE (07:45)
[2022-11-22] MEDS: POTASSIUM CHLORIDE 10% LIQ 20MEQ/15ML UDC PO ONE ×2 (07:45→09:19)
[2022-11-22] MEDS: HYDROCORTISONE 100MG/2ML VIAL IV SCH (09:18)
[2022-11-22] MEDS: SODIUM CHLORIDE 0.9% INJ 10 ML SYR IV PRN (09:19)
[2022-11-22] MEDS: hydroCHLOROthiazide 12.5 MG CAPSULE PO SCH (09:21)
[2022-11-22] MEDS: PANTOPRAZOLE 40MG TAB (PROTONIX) PO SCH ×2 (09:21→20:33)
[2022-11-22] MEDS: MAXITROL OPHTH SUSP 5ML OD SCH ×4 (09:21→20:33)
[2022-11-22] MEDS ORDERED: POTASSIUM CHLORIDE 10MEQ SR TABLET PO ONE (10:15)
[2022-11-22 14:00] VITALS: BP 153/74
[2022-11-22 22:00] VITALS: BP 149/73
[2022-11-23] MEDS: ACETAMINOPHEN TAB 650MG DOSE (2X325MG) PO PRN ×2 (00:29→20:54)
[2022-11-23 06:00] VITALS: BP 157/71
[2022-11-23] MEDS: LEVOTHYROXINE 125MCG TABLET (0.125MG) PO SCH (06:10)
[2022-11-23] MEDS: SODIUM CHLORIDE 0.9% INJ 10 ML SYR IV SCH (06:10)
[2022-11-23] MEDS: INSULIN LISPRO (NovoLOG) PER UNIT SC SCH ×4 (07:30→20:53)
[2022-11-23] MEDS: ALBUTEROL SULFATE 2.5MG/0.5ML INH NEB SOLN NEB SCH ×3 (08:04→23:12)
[2022-11-23] MEDS: MAXITROL OPHTH SUSP 5ML OD SCH ×4 (08:49→20:51)
[2022-11-23] MEDS: PANTOPRAZOLE 40MG TAB (PROTONIX) PO SCH ×2 (08:49→20:51)
[2022-11-23] MEDS: SODIUM CHLORIDE 0.9% INJ 10 ML SYR IV PRN (08:49)
[2022-11-23] MEDS: hydroCHLOROthiazide 12.5 MG CAPSULE PO SCH (08:49)
[2022-11-23] MEDS ORDERED: HYDROCORTISONE 100MG/2ML VIAL IV SCH (09:00)
[2022-11-23 10:25] LABS: CALCIUM LEVEL 8.5 MG/DL (8.3-10.6); CREATININE FOR GFR 1.02 MG/DL (0.55-1.30); GLOMERULAR FILTRATION RATE 55.9 (>39); MAGNESIUM LEVEL 1.8 MG/DL (1.8-2.4); POTASSIUM SERUM 3.1 MMOL/L (3.5-5.1)
[2022-11-23 14:00] VITALS: BP 150/77
[2022-11-23 22:00] VITALS: BP 141/73
[2022-11-24 06:00] VITALS: BP 139/71
[2022-11-24] MEDS: ACETAMINOPHEN TAB 650MG DOSE (2X325MG) PO PRN (06:07)
[2022-11-24] MEDS: LEVOTHYROXINE 125MCG TABLET (0.125MG) PO SCH (06:07)
[2022-11-24] MEDS: ALBUTEROL SULFATE 2.5MG/0.5ML INH NEB SOLN NEB SCH ×3 (08:09→23:51)
[2022-11-24] MEDS: INSULIN LISPRO (NovoLOG) PER UNIT SC SCH ×4 (08:13→20:05)
[2022-11-24] MEDS: hydroCHLOROthiazide 12.5 MG CAPSULE PO SCH (08:13)
[2022-11-24] MEDS: PANTOPRAZOLE 40MG TAB (PROTONIX) PO SCH ×2 (08:13→20:06)
[2022-11-24] MEDS: MAXITROL OPHTH SUSP 5ML OD SCH ×4 (08:14→20:07)
[2022-11-24 14:00] VITALS: BP 149/70
[2022-11-24 22:00] VITALS: BP 148/69
[2022-11-25 06:00] VITALS: BP 125/59
[2022-11-25] MEDS: LEVOTHYROXINE 125MCG TABLET (0.125MG) PO SCH (06:23)
[2022-11-25] MEDS: ALBUTEROL SULFATE 2.5MG/0.5ML INH NEB SOLN NEB SCH ×3 (07:18→23:56)
[2022-11-25] MEDS: hydroCHLOROthiazide 12.5 MG CAPSULE PO SCH (08:50)
[2022-11-25] MEDS: PANTOPRAZOLE 40MG TAB (PROTONIX) PO SCH ×2 (08:50→20:17)
[2022-11-25] MEDS: MAXITROL OPHTH SUSP 5ML OD SCH ×4 (08:50→20:17)
[2022-11-25] MEDS: INSULIN LISPRO (NovoLOG) PER UNIT SC SCH ×4 (08:51→20:18)
[2022-11-25 14:00] VITALS: BP 135/74
[2022-11-25 22:00] VITALS: BP 136/74
[2022-11-26] MEDS: LEVOTHYROXINE 125MCG TABLET (0.125MG) PO SCH (05:56)
[2022-11-26 06:00] VITALS: BP 134/70
[2022-11-26] MEDS: ALBUTEROL SULFATE 2.5MG/0.5ML INH NEB SOLN NEB SCH ×3 (07:28→23:25)
[2022-11-26] MEDS: INSULIN LISPRO (NovoLOG) PER UNIT SC SCH ×4 (08:56→20:40)
[2022-11-26] MEDS: MAXITROL OPHTH SUSP 5ML OD SCH ×4 (08:57→20:33)
[2022-11-26] MEDS: PANTOPRAZOLE 40MG TAB (PROTONIX) PO SCH ×2 (08:57→20:33)
[2022-11-26] MEDS: hydroCHLOROthiazide 12.5 MG CAPSULE PO SCH (08:57)
[2022-11-27] MEDS: ACETAMINOPHEN TAB 650MG DOSE (2X325MG) PO PRN (01:30)
[2022-11-27 06:00] VITALS: BP 134/74
[2022-11-27] MEDS: LEVOTHYROXINE 125MCG TABLET (0.125MG) PO SCH (06:06)
[2022-11-27] MEDS: INSULIN LISPRO (NovoLOG) PER UNIT SC SCH (07:49)
[2022-11-27] MEDS: hydroCHLOROthiazide 12.5 MG CAPSULE PO SCH (07:50)
[2022-11-27] MEDS: MAXITROL OPHTH SUSP 5ML OD SCH (07:50)
[2022-11-27] MEDS: PANTOPRAZOLE 40MG TAB (PROTONIX) PO SCH (07:50)
[2022-11-27 08:00] VITALS: O2SAT 93
[2022-11-27] MEDS: ALBUTEROL SULFATE 2.5MG/0.5ML INH NEB SOLN NEB SCH (08:00)
[2022-11-27] MEDS ORDERED: ALB2.5NEB NEB (10:06)
[2022-11-27] MEDS ORDERED: ACET1TAB55 PO (10:06)
[2022-11-27] MEDS ORDERED: HYDR12CA PO (10:06)
[2022-11-27] MEDS ORDERED: PANT40TA29 PO (10:06)
[2022-11-27] MEDS ORDERED: LEVO125T4 PO (10:06)
== END 2022-11-27 11:10 | DRG 853 ==
LOC: M ICU 11-10 01:15 → M MS5PR 11-11 13:10 → M ICU 11-14 23:37 → M PCU 11-18 14:17 → M MSPAV 11-19 10:36
PROVIDERS: ADMIT Internal Medicine; ATTEND Internal Medicine Nephrology
PROC: 0WUF0JZ Supplement Abdominal Wall with Synthetic Substitute, Open Approach (ICD-10-PCS; 2022-11-14)
PROC: 0DBE0ZZ Excision of Large Intestine, Open Approach (ICD-10-PCS; 2022-11-14)
PROC: 0D1B0Z4 Bypass Ileum to Cutaneous, Open Approach (ICD-10-PCS; principal; 2022-11-14 19:06)
DX: A41.9 Sepsis, unspecified organism (principal); R65.21 Severe sepsis with septic shock; R57.1 Hypovolemic shock; K56.2 Volvulus; J96.01 Acute respiratory failure with hypoxia; J69.0 Pneumonitis due to inhalation of food and vomit; N39.0 Urinary tract infection, site not specified; K55.9 Vascular disorder of intestine, unspecified; N17.9 Acute kidney failure, unspecified; K43.6 Other and unspecified ventral hernia with obstruction, without gangrene; E46 Unspecified protein-calorie malnutrition; K43.0 Incisional hernia with obstruction, without gangrene; J98.11 Atelectasis; I50.9 Heart failure, unspecified; I95.9 Hypotension, unspecified; I11.0 Hypertensive heart disease with heart failure; E11.9 Type 2 diabetes mellitus without complications; J44.9 Chronic obstructive pulmonary disease, unspecified; I25.10 Atherosclerotic heart disease of native coronary artery without angina pectoris; K76.0 Fatty (change of) liver, not elsewhere classified; G24.01 Drug induced subacute dyskinesia; Z86.73 Personal history of transient ischemic attack (TIA), and cerebral infarction without residual deficits; E03.9 Hypothyroidism, unspecified; K59.00 Constipation, unspecified; Z79.82 Long term (current) use of aspirin; Z79.899 Other long term (current) drug therapy; Z66 Do not resuscitate

== ENCOUNTER 2022-12-21 17:13 | Inpatient (IN) | payer MEDICARE, MEDICAID ==
[~2022-12-21] VITALS: Ht 157.5 cm; Wt 83.5 kg
[~2022-12-21 17:13] MED LIST changes: +ACET1TAB55 PO; +ALB2.5NEB NEB; +ASPI-161 PO; +ASPI-255 PO; +FARX1TAB5 PO; +HYDR12CA PO; +LEVO125T4 PO; +MAXI0.1S4 OD; +SITA50TAB PO; +SYNT100T PO; +VITA200016 PO
[2022-12-21] MEDS ORDERED: LISI5TAB11 (17:33)
[2022-12-21] MEDS ORDERED: CEFP200T PO (17:33)
[2022-12-21] MEDS ORDERED: DULO1CAP4 PO (17:33)
[2022-12-21] MEDS ORDERED: ERGO500029 PO (17:33)
[2022-12-21] MEDS ORDERED: METO1TAB7 PO (17:33)
[2022-12-21] MEDS ORDERED: NS 1,000 ML IV ONE (19:05)
[2022-12-21] MEDS ORDERED: ISOVUE-370 76% 100ML VIAL As Ordered ONE (19:10)
[2022-12-21 19:38] LABS: BASO % 0.5 % (0.0-1.0); EOS # 0.4 10^3/uL (0.0-0.5); HEMATOCRIT 32.7 % (36.0-47.0); HEMOGLOBIN 10.4 g/dl (12.0-15.5); LYMPH # 1.7 10^3/uL (1.5-5.0); LYMPH % 19.9 % (24.0-44.0); MEAN CORPUSCULAR HGB CONC 31.8 g/dl (32.0-36.5); MEAN CORPUSCULAR VOLUME 84.9 fl (80.0-96.0); MONO # 0.5 10^3/uL (0.0-0.8); MONO % 6.1 % (2.0-8.0); NEUTROPHILS # 5.8 10^3/uL (1.5-8.5); NEUTROPHILS % 68.4 % (36.0-66.0); PLATELET COUNT, AUTOMATED 271 10^3/uL (150-450); RED BLOOD COUNT 3.85 10^6/uL (4.00-5.40); WHITE BLOOD COUNT 8.5 10^3/uL (4.0-10.0)
[2022-12-21 20:02] LABS: ALBUMIN 3.3 G/DL (3.2-5.2); BILIRUBIN,TOTAL 0.4 MG/DL (0.3-1.2); CALCIUM LEVEL 9.4 MG/DL (8.3-10.6); CREATININE FOR GFR 0.97 MG/DL (0.55-1.30); GLOMERULAR FILTRATION RATE 59.3 (>39); POTASSIUM SERUM 3.7 MMOL/L (3.5-5.1); TOTAL PROTEIN 6.5 G/DL (5.7-8.2)
[2022-12-21 20:11] LABS: RSV AMPLIFICATION NEGATIVE (NEGATIVE)
[2022-12-21] MEDS ORDERED: LevoFLOXacin IV 750 MG in IV 1 EA IV SCH (23:00)
[2022-12-21] MEDS ORDERED: ACETAMINOPHEN TAB 650MG DOSE (2X325MG) PO PRN (23:10)
[2022-12-21] MEDS ORDERED: GLUCAGON INJ 1MG VIAL SC PRN (23:10)
[2022-12-21] MEDS ORDERED: GLUCOSE 4GM CHEW TABLET PO PRN (23:10)
[2022-12-21] MEDS ORDERED: DEXTROSE 50% 50ML SYRINGE IV PRN (23:10)
[2022-12-22] MEDS ORDERED: ENOXAPARIN 80MG/0.8ML SYRINGE (J1650 PER 10MG) SC SCH
[2022-12-22 01:40] VITALS: BP 130/71
[2022-12-22 05:53] LABS: HEMATOCRIT 31.1 % (36.0-47.0); HEMOGLOBIN 9.9 g/dl (12.0-15.5); MEAN CORPUSCULAR HEMOGLOBIN 27.2 pg (27.0-33.0); MEAN CORPUSCULAR HGB CONC 31.8 g/dl (32.0-36.5); MEAN CORPUSCULAR VOLUME 85.4 fl (80.0-96.0); PLATELET COUNT, AUTOMATED 229 10^3/uL (150-450); RED BLOOD COUNT 3.64 10^6/uL (4.00-5.40); WHITE BLOOD COUNT 5.6 10^3/uL (4.0-10.0)
[2022-12-22 05:54] VITALS: BP 127/57
[2022-12-22 06:26] LABS: ALBUMIN 2.9 G/DL (3.2-5.2); BILIRUBIN,TOTAL 0.5 MG/DL (0.3-1.2); CALCIUM LEVEL 8.8 MG/DL (8.3-10.6); CREATININE FOR GFR 0.97 MG/DL (0.55-1.30); GLOMERULAR FILTRATION RATE 59.3 (>39); MAGNESIUM LEVEL 1.8 MG/DL (1.8-2.4); POTASSIUM SERUM 3.6 MMOL/L (3.5-5.1); TOTAL PROTEIN 5.8 G/DL (5.7-8.2)
[2022-12-22] MEDS: INSULIN LISPRO (NovoLOG) PER UNIT SC SCH ×4 (08:33→20:54)
[2022-12-22] MEDS: NYSTATIN 100,000 UNITS/GM TOPICAL PWD 15GM TOP SCH ×2 (08:33→20:58)
[2022-12-22] MEDS ORDERED: PANT40TA29 PO (08:42)
[2022-12-22] MEDS ORDERED: HYDR12CA PO (08:42)
[2022-12-22] MEDS ORDERED: SYNT125T PO (08:42)
[2022-12-22] MEDS ORDERED: ACET1TAB55 PO (08:42)
[2022-12-22] MEDS ORDERED: LISI5TAB11 PO (09:28)
[2022-12-22] MEDS ORDERED: MED REC COMMENT (09:31)
[2022-12-22] MEDS ORDERED: HOME MED LIST COMPLETE! XX SCH (09:35)
[2022-12-22] MEDS: PANTOPRAZOLE 40MG TAB (PROTONIX) PO SCH (11:25)
[2022-12-22] MEDS: ASPIRIN 81MG ENTERIC TABLET PO SCH (11:25)
[2022-12-22] MEDS: LEVOTHYROXINE 125MCG TABLET (0.125MG) PO SCH (11:26)
[2022-12-22] MEDS: APIXABAN 5 MG TAB (ELIQUIS) PO SCH ×2 (11:27→20:58)
[2022-12-22] MEDS: METOPROLOL SUCC (TopROL XL) 50MG **XL** TAB PO SCH (11:28)
[2022-12-22] MEDS: lisinopriL 5 MG TAB PO SCH (11:28)
[2022-12-22] MEDS: ceFAZolin SOD 1 GM in D5W MINI-BAG PLUS 50 ML IV SCH ×2 (11:29→18:27)
[2022-12-22] MEDS: hydroCHLOROthiazide 12.5 MG CAPSULE PO SCH (11:35)
[2022-12-22] MEDS: DULoxetine 20MG CAP (CYMBALTA) PO SCH ×2 (11:35→20:58)
[2022-12-22 14:00] VITALS: BP 137/72
[2022-12-22 20:00] VITALS: BP 132/68
[2022-12-22] MEDS: SIMVASTATIN 20 MG TAB PO SCH (20:58)
[2022-12-23] MEDS: ceFAZolin SOD 1 GM in D5W MINI-BAG PLUS 50 ML IV SCH ×2 (03:29→10:16)
[2022-12-23] MEDS: LEVOTHYROXINE 125MCG TABLET (0.125MG) PO SCH (05:01)
[2022-12-23 06:34] VITALS: BP 121/61
[2022-12-23 07:50] VITALS: BP 127/66
[2022-12-23 07:50] LABS: BASO # 0.1 10^3/uL (0.0-0.2); BASO % 0.8 % (0.0-1.0); EOS # 0.4 10^3/uL (0.0-0.5); EOS % 6.3 % (0.0-3.0); HEMATOCRIT 33.8 % (36.0-47.0); HEMOGLOBIN 10.8 g/dl (12.0-15.5); LYMPH # 1.6 10^3/uL (1.5-5.0); LYMPH % 25.2 % (24.0-44.0); MEAN CORPUSCULAR HEMOGLOBIN 27.3 pg (27.0-33.0); MEAN CORPUSCULAR VOLUME 85.4 fl (80.0-96.0); MONO # 0.3 10^3/uL (0.0-0.8); MONO % 5.4 % (2.0-8.0); NEUTROPHILS # 3.8 10^3/uL (1.5-8.5); PLATELET COUNT, AUTOMATED 255 10^3/uL (150-450); RED BLOOD COUNT 3.96 10^6/uL (4.00-5.40); WHITE BLOOD COUNT 6.2 10^3/uL (4.0-10.0)
[2022-12-23] MEDS: INSULIN LISPRO (NovoLOG) PER UNIT SC SCH ×4 (08:55→21:00)
[2022-12-23] MEDS: hydroCHLOROthiazide 12.5 MG CAPSULE PO SCH (08:56)
[2022-12-23] MEDS: METOPROLOL SUCC (TopROL XL) 50MG **XL** TAB PO SCH (08:56)
[2022-12-23] MEDS: ASPIRIN 81MG ENTERIC TABLET PO SCH (08:56)
[2022-12-23] MEDS: PANTOPRAZOLE 40MG TAB (PROTONIX) PO SCH (08:57)
[2022-12-23] MEDS: NYSTATIN 100,000 UNITS/GM TOPICAL PWD 15GM TOP SCH ×2 (08:57→20:37)
[2022-12-23] MEDS: APIXABAN 5 MG TAB (ELIQUIS) PO SCH ×2 (08:57→20:36)
[2022-12-23] MEDS: lisinopriL 5 MG TAB PO SCH (08:57)
[2022-12-23] MEDS: DULoxetine 20MG CAP (CYMBALTA) PO SCH ×2 (10:17→20:36)
[2022-12-23 13:36] VITALS: BP 124/65
[2022-12-23] MEDS ORDERED: FOSFOMYCIN TROMETHAMINE 3 GM POWDER PACKET (MONUROL) PO ONE (14:10)
[2022-12-23] MEDS: AUGMENTIN 875 MG TAB PO SCH ×2 (15:21→20:36)
[2022-12-23] MEDS ORDERED: CEPHALEXIN 500 MG CAP PO SCH (17:00)
[2022-12-23 20:00] VITALS: BP 125/64
[2022-12-23] MEDS: SIMVASTATIN 20 MG TAB PO SCH (20:36)
[2022-12-23] MEDS ORDERED: LevoFLOXacin IV 500 MG in IV 1 EA IV SCH (23:00)
[2022-12-24 05:31] VITALS: BP 126/65
[2022-12-24] MEDS: LEVOTHYROXINE 125MCG TABLET (0.125MG) PO SCH (06:15)
[2022-12-24 06:25] LABS: BASO % 0.7 % (0.0-1.0); EOS # 0.4 10^3/uL (0.0-0.5); EOS % 6.6 % (0.0-3.0); HEMATOCRIT 32.6 % (36.0-47.0); HEMOGLOBIN 10.4 g/dl (12.0-15.5); LYMPH # 1.3 10^3/uL (1.5-5.0); MEAN CORPUSCULAR HEMOGLOBIN 27.3 pg (27.0-33.0); MEAN CORPUSCULAR HGB CONC 31.9 g/dl (32.0-36.5); MEAN CORPUSCULAR VOLUME 85.6 fl (80.0-96.0); MONO # 0.4 10^3/uL (0.0-0.8); MONO % 6.3 % (2.0-8.0); NEUTROPHILS # 3.9 10^3/uL (1.5-8.5); NEUTROPHILS % 64.1 % (36.0-66.0); PLATELET COUNT, AUTOMATED 229 10^3/uL (150-450); RED BLOOD COUNT 3.81 10^6/uL (4.00-5.40)
[2022-12-24] MEDS: INSULIN LISPRO (NovoLOG) PER UNIT SC SCH ×4 (07:09→21:00)
[2022-12-24] MEDS: DULoxetine 20MG CAP (CYMBALTA) PO SCH (09:39)
[2022-12-24] MEDS: APIXABAN 5 MG TAB (ELIQUIS) PO SCH ×2 (09:39→21:38)
[2022-12-24] MEDS: ASPIRIN 81MG ENTERIC TABLET PO SCH (09:40)
[2022-12-24] MEDS: lisinopriL 5 MG TAB PO SCH (09:40)
[2022-12-24] MEDS: METOPROLOL SUCC (TopROL XL) 50MG **XL** TAB PO SCH (09:40)
[2022-12-24] MEDS: PANTOPRAZOLE 40MG TAB (PROTONIX) PO SCH (09:40)
[2022-12-24] MEDS: AUGMENTIN 875 MG TAB PO SCH (09:40)
[2022-12-24] MEDS: hydroCHLOROthiazide 12.5 MG CAPSULE PO SCH (09:40)
[2022-12-24] MEDS: NYSTATIN 100,000 UNITS/GM TOPICAL PWD 15GM TOP SCH ×2 (09:43→21:39)
[2022-12-24 14:00] VITALS: BP 123/63
[2022-12-24] MEDS: SIMVASTATIN 20 MG TAB PO SCH (21:38)
[2022-12-24] MEDS: LINEZOLID 600MG TABLET (ZYVOX) PO SCH (21:39)
[2022-12-25] MEDS: LEVOTHYROXINE 125MCG TABLET (0.125MG) PO SCH (05:38)
[2022-12-25 06:00] VITALS: BP 113/71
[2022-12-25 06:49] LABS: BASO # 0.1 10^3/uL (0.0-0.2); BASO % 0.7 % (0.0-1.0); EOS # 0.4 10^3/uL (0.0-0.5); EOS % 5.4 % (0.0-3.0); HEMATOCRIT 33.4 % (36.0-47.0); HEMOGLOBIN 10.6 g/dl (12.0-15.5); LYMPH # 1.7 10^3/uL (1.5-5.0); LYMPH % 23.9 % (24.0-44.0); MEAN CORPUSCULAR HEMOGLOBIN 27.4 pg (27.0-33.0); MEAN CORPUSCULAR HGB CONC 31.7 g/dl (32.0-36.5); MEAN CORPUSCULAR VOLUME 86.3 fl (80.0-96.0); MONO # 0.4 10^3/uL (0.0-0.8); MONO % 5.6 % (2.0-8.0); NEUTROPHILS # 4.5 10^3/uL (1.5-8.5); NEUTROPHILS % 64.1 % (36.0-66.0); PLATELET COUNT, AUTOMATED 264 10^3/uL (150-450); RED BLOOD COUNT 3.87 10^6/uL (4.00-5.40); WHITE BLOOD COUNT 7.1 10^3/uL (4.0-10.0)
[2022-12-25] MEDS: INSULIN LISPRO (NovoLOG) PER UNIT SC SCH ×4 (09:49→20:16)
[2022-12-25] MEDS: LINEZOLID 600MG TABLET (ZYVOX) PO SCH ×2 (09:50→20:34)
[2022-12-25] MEDS: APIXABAN 5 MG TAB (ELIQUIS) PO SCH ×2 (09:50→20:34)
[2022-12-25] MEDS: ASPIRIN 81MG ENTERIC TABLET PO SCH (09:50)
[2022-12-25] MEDS: NYSTATIN 100,000 UNITS/GM TOPICAL PWD 15GM TOP SCH ×2 (09:51→20:34)
[2022-12-25] MEDS: PANTOPRAZOLE 40MG TAB (PROTONIX) PO SCH (09:51)
[2022-12-25] MEDS: METOPROLOL SUCC (TopROL XL) 50MG **XL** TAB PO SCH (09:52)
[2022-12-25] MEDS: hydroCHLOROthiazide 12.5 MG CAPSULE PO SCH (09:52)
[2022-12-25] MEDS: lisinopriL 5 MG TAB PO SCH (09:52)
[2022-12-25] MEDS: SIMVASTATIN 20 MG TAB PO SCH (20:34)
[2022-12-26 04:30] VITALS: BP 134/75
[2022-12-26] MEDS: LEVOTHYROXINE 125MCG TABLET (0.125MG) PO SCH (05:36)
[2022-12-26] MEDS: APIXABAN 5 MG TAB (ELIQUIS) PO SCH ×2 (08:34→19:47)
[2022-12-26] MEDS: ASPIRIN 81MG ENTERIC TABLET PO SCH (08:34)
[2022-12-26] MEDS: hydroCHLOROthiazide 12.5 MG CAPSULE PO SCH (08:34)
[2022-12-26] MEDS: INSULIN LISPRO (NovoLOG) PER UNIT SC SCH ×4 (08:34→20:37)
[2022-12-26] MEDS: PANTOPRAZOLE 40MG TAB (PROTONIX) PO SCH (08:35)
[2022-12-26] MEDS: METOPROLOL SUCC (TopROL XL) 50MG **XL** TAB PO SCH (08:35)
[2022-12-26] MEDS: lisinopriL 5 MG TAB PO SCH (08:35)
[2022-12-26] MEDS: LINEZOLID 600MG TABLET (ZYVOX) PO SCH ×2 (08:35→19:47)
[2022-12-26] MEDS: NYSTATIN 100,000 UNITS/GM TOPICAL PWD 15GM TOP SCH ×2 (08:36→19:47)
[2022-12-26] MEDS: SIMVASTATIN 20 MG TAB PO SCH (19:47)
[2022-12-27] MEDS: LEVOTHYROXINE 125MCG TABLET (0.125MG) PO SCH (05:31)
[2022-12-27 05:50] VITALS: BP 103/59
[2022-12-27] MEDS: lisinopriL 5 MG TAB PO SCH (09:00)
[2022-12-27] MEDS ORDERED: VITAMIN D 50,000 UNITS CAPSULE (ERGOCALCIFEROL 1.25MG) PO SCH (09:00)
[2022-12-27] MEDS: hydroCHLOROthiazide 12.5 MG CAPSULE PO SCH (09:00)
[2022-12-27] MEDS: METOPROLOL SUCC (TopROL XL) 50MG **XL** TAB PO SCH (09:00)
[2022-12-27] MEDS: APIXABAN 5 MG TAB (ELIQUIS) PO SCH ×2 (09:08→21:21)
[2022-12-27] MEDS: ASPIRIN 81MG ENTERIC TABLET PO SCH (09:08)
[2022-12-27] MEDS: LINEZOLID 600MG TABLET (ZYVOX) PO SCH ×2 (09:08→21:22)
[2022-12-27] MEDS: PANTOPRAZOLE 40MG TAB (PROTONIX) PO SCH (09:08)
[2022-12-27] MEDS: NYSTATIN 100,000 UNITS/GM TOPICAL PWD 15GM TOP SCH ×2 (09:09→21:22)
[2022-12-27] MEDS: INSULIN LISPRO (NovoLOG) PER UNIT SC SCH ×4 (09:11→21:00)
[2022-12-27] MEDS: SIMVASTATIN 20 MG TAB PO SCH (21:22)
[2022-12-28] MEDS: LEVOTHYROXINE 125MCG TABLET (0.125MG) PO SCH (06:00)
[2022-12-28 06:44] VITALS: BP 125/71
[2022-12-28] MEDS ORDERED: LINEZOLID 600MG TABLET (ZYVOX) PO SCH (09:00)
[2022-12-28] MEDS: hydroCHLOROthiazide 12.5 MG CAPSULE PO SCH (09:50)
[2022-12-28] MEDS: INSULIN LISPRO (NovoLOG) PER UNIT SC SCH ×2 (09:50→12:32)
[2022-12-28] MEDS: METOPROLOL SUCC (TopROL XL) 50MG **XL** TAB PO SCH (09:51)
[2022-12-28] MEDS: ASPIRIN 81MG ENTERIC TABLET PO SCH (09:51)
[2022-12-28] MEDS: PANTOPRAZOLE 40MG TAB (PROTONIX) PO SCH (09:51)
[2022-12-28] MEDS: APIXABAN 5 MG TAB (ELIQUIS) PO SCH (09:51)
[2022-12-28 09:52] VITALS: BP 119/67
[2022-12-28] MEDS: NYSTATIN 100,000 UNITS/GM TOPICAL PWD 15GM TOP SCH (09:52)
[2022-12-28] MEDS: lisinopriL 5 MG TAB PO SCH (09:52)
[2022-12-28] MEDS ORDERED: ASPI81TAEC PO (12:14)
[2022-12-28] MEDS ORDERED: ELIQ5TAB PO (12:14)
[2022-12-28] MEDS ORDERED: LINE1TAB6 PO (12:14)
[2022-12-28] MEDS ORDERED: INSUHUMDS SC (12:14)
[2022-12-28] MEDS ORDERED: NYST10006 TOP (12:56)
== END 2022-12-28 13:50 | DRG 603 ==
LOC: M ED 17:13 → M ED INP 23:07 → ENRESERV 12-22 00:43 → M MSPAV 12-22 01:42
PROVIDERS: ADMIT Internal Medicine; ATTEND Internal Medicine
DX: L03.311 Cellulitis of abdominal wall (principal); I50.32 Chronic diastolic (congestive) heart failure; N39.0 Urinary tract infection, site not specified; I82.890 Acute embolism and thrombosis of other specified veins; J44.9 Chronic obstructive pulmonary disease, unspecified; I25.10 Atherosclerotic heart disease of native coronary artery without angina pectoris; E11.42 Type 2 diabetes mellitus with diabetic polyneuropathy; E03.9 Hypothyroidism, unspecified; K21.9 Gastro-esophageal reflux disease without esophagitis; I11.0 Hypertensive heart disease with heart failure; Z86.73 Personal history of transient ischemic attack (TIA), and cerebral infarction without residual deficits; Z93.2 Ileostomy status; E55.9 Vitamin D deficiency, unspecified; G24.01 Drug induced subacute dyskinesia; Z90.49 Acquired absence of other specified parts of digestive tract; Z87.891 Personal history of nicotine dependence; Z66 Do not resuscitate; Z79.82 Long term (current) use of aspirin; Z79.890 Hormone replacement therapy; Z79.899 Other long term (current) drug therapy; Z20.822 Contact with and (suspected) exposure to COVID-19

== ENCOUNTER → 2023-01-01 | Outpatient (REF) | payer MEDICARE, MEDICAID ==
[~2023-01-01] MED LIST changes: +ASPI81TAEC PO; +CEFP200T PO; +DULO1CAP4 PO; +ELIQ5TAB PO; +ERGO500029 PO; +INSUHUMDS SC; +LINE1TAB6 PO; +LISI5TAB11; +LISI5TAB11 PO; +MED REC COMMENT; +NYST10006 TOP; +SYNT125T PO
[2023-01-01 07:58] LABS: HEMATOCRIT 36.5 % (36.0-47.0); HEMOGLOBIN 11.8 g/dl (12.0-15.5); MEAN CORPUSCULAR HEMOGLOBIN 27.1 pg (27.0-33.0); MEAN CORPUSCULAR HGB CONC 32.3 g/dl (32.0-36.5); MEAN CORPUSCULAR VOLUME 83.9 fl (80.0-96.0); PLATELET COUNT, AUTOMATED 238 10^3/uL (150-450); RED BLOOD COUNT 4.35 10^6/uL (4.00-5.40); WHITE BLOOD COUNT 5.9 10^3/uL (4.0-10.0)
[2023-01-01 08:24] LABS: ALBUMIN 3.4 G/DL (3.2-5.2); BILIRUBIN,TOTAL 0.8 MG/DL (0.3-1.2); CALCIUM LEVEL 10.1 MG/DL (8.3-10.6); CREATININE FOR GFR 1.26 MG/DL (0.55-1.30); GLOMERULAR FILTRATION RATE 43.8 (>39); POTASSIUM SERUM 3.5 MMOL/L (3.5-5.1); TOTAL PROTEIN 6.5 G/DL (5.7-8.2)
== END ==
LOC: SKLAB2 07:00
PROVIDERS: ATTEND Internal Medicine
DX: K94.01 Colostomy hemorrhage (principal)

== ENCOUNTER → 2023-01-06 | Outpatient (REF) | payer MEDICARE, MEDICAID ==
[2023-01-06 08:19] LABS: HEMATOCRIT 36.9 % (36.0-47.0); HEMOGLOBIN 11.9 g/dl (12.0-15.5); MEAN CORPUSCULAR HEMOGLOBIN 26.8 pg (27.0-33.0); MEAN CORPUSCULAR HGB CONC 32.2 g/dl (32.0-36.5); MEAN CORPUSCULAR VOLUME 83.1 fl (80.0-96.0); PLATELET COUNT, AUTOMATED 152 10^3/uL (150-450); RED BLOOD COUNT 4.44 10^6/uL (4.00-5.40); WHITE BLOOD COUNT 5.5 10^3/uL (4.0-10.0)
== END ==
LOC: SKLAB2 03:00
PROVIDERS: ATTEND Internal Medicine
DX: L03.90 Cellulitis, unspecified (principal)

== ENCOUNTER → 2023-01-06 | Outpatient (CLI) | payer MEDICARE, MEDICAID | LOC: M RAD 08:59 | PROVIDERS: ATTEND Nurse Practitioner Family | DX: L03.90 Cellulitis, unspecified (principal); Z93.3 Colostomy status; I87.8 Other specified disorders of veins; M47.9 Spondylosis, unspecified ==

== ENCOUNTER → 2023-01-30 | Outpatient (REF) | payer MEDICARE, MEDICAID | LOC: SKLAB2 08:33 → M LAB 08:33 | PROVIDERS: ATTEND Internal Medicine | DX: Z53.8 Procedure and treatment not carried out for other reasons (principal) ==

== ENCOUNTER → 2023-01-31 | Outpatient (REF) | payer MEDICARE, MEDICAID ==
[2023-01-31 07:31] LABS: HEMATOCRIT 34.8 % (36.0-47.0); MEAN CORPUSCULAR HEMOGLOBIN 26.4 pg (27.0-33.0); MEAN CORPUSCULAR HGB CONC 31.6 g/dl (32.0-36.5); MEAN CORPUSCULAR VOLUME 83.7 fl (80.0-96.0); PLATELET COUNT, AUTOMATED 193 10^3/uL (150-450); RED BLOOD COUNT 4.16 10^6/uL (4.00-5.40); WHITE BLOOD COUNT 6.2 10^3/uL (4.0-10.0)
[2023-01-31 07:54] LABS: CALCIUM LEVEL 9.5 MG/DL (8.3-10.6); CREATININE FOR GFR 1.29 MG/DL (0.55-1.30); GLOMERULAR FILTRATION RATE 42.7 (>39); POTASSIUM SERUM 4.2 MMOL/L (3.5-5.1)
[2023-01-31 07:56] LABS: THYROID STIMULATING HORMONE 0.036 uIU/ML (0.55-4.78)
[2023-01-31 08:25] LABS: HEMOGLOBIN A1c 6.4 % (4.0-6.0)
== END ==
LOC: SKLAB2 07:00
PROVIDERS: ATTEND Internal Medicine
DX: E11.9 Type 2 diabetes mellitus without complications (principal); E03.9 Hypothyroidism, unspecified

== ENCOUNTER → 2023-02-15 | Outpatient (REF) | payer MEDICARE, MEDICAID ==
[2023-02-15 08:58] LABS: PHOSPHORUS LEVEL 5.6 MG/DL (2.4-5.1)
[2023-02-15 08:59] LABS: PTH INTACT 18.3 PG/ML (18.5-88.0)
[2023-02-15 09:01] LABS: TOTAL 25(OH) VITAMIN D 47.6 NG/ML (20.0-100.0)
== END ==
LOC: SKLAB2 07:00
PROVIDERS: ATTEND Internal Medicine
DX: E21.3 Hyperparathyroidism, unspecified (principal)

== ENCOUNTER → 2023-02-20 | Outpatient (REF) | payer MEDICARE, MEDICAID ==
[2023-02-20 08:33] LABS: CHOLESTEROL RISK RATIO 4.01 (<5); HDL CHOLESTEROL 39.4 MG/DL (>40); LDL CHOLESTEROL 82.2 MG/DL (<100); NON-HDL-C 118.6 MG/DL
[2023-02-20 08:36] LABS: THYROID STIMULATING HORMONE 0.021 uIU/ML (0.55-4.78)
== END ==
LOC: SKLAB2 07:00
PROVIDERS: ATTEND Internal Medicine
DX: E03.9 Hypothyroidism, unspecified (principal); E78.5 Hyperlipidemia, unspecified

== ENCOUNTER → 2023-05-17 | Outpatient (REF) | payer MEDICARE, MEDICAID ==
[2023-05-17 11:13] LABS: HEMATOCRIT 34.1 % (36.0-47.0); HEMOGLOBIN 10.9 g/dl (12.0-15.5); MEAN CORPUSCULAR HEMOGLOBIN 25.5 pg (27.0-33.0); MEAN CORPUSCULAR VOLUME 79.9 fl (80.0-96.0); PLATELET COUNT, AUTOMATED 207 10^3/uL (150-450); RED BLOOD COUNT 4.27 10^6/uL (4.00-5.40); WHITE BLOOD COUNT 5.2 10^3/uL (4.0-10.0)
[2023-05-17 11:41] LABS: ALBUMIN 3.3 G/DL (3.2-5.2); BILIRUBIN,TOTAL 0.4 MG/DL (0.3-1.2); CALCIUM LEVEL 10.6 MG/DL (8.3-10.6); CREATININE FOR GFR 1.26 MG/DL (0.55-1.30); GLOMERULAR FILTRATION RATE 43.8 (>39); TOTAL PROTEIN 6.4 G/DL (5.7-8.2)
== END ==
LOC: SKLAB2 10:05
PROVIDERS: ATTEND Internal Medicine
DX: R07.89 Other chest pain (principal)

== ENCOUNTER → 2023-05-18 | Outpatient (REF) | payer MEDICARE, MEDICAID | LOC: SKLAB2 07:00 | PROVIDERS: ATTEND Nurse Practitioner Adult Health | DX: R07.89 Other chest pain (principal) ==

== ENCOUNTER → 2023-06-14 | Outpatient (REF) | payer MEDICARE, MEDICAID ==
[2023-06-14 08:35] LABS: HEMATOCRIT 37.2 % (36.0-47.0); HEMOGLOBIN 11.8 g/dl (12.0-15.5); MEAN CORPUSCULAR HEMOGLOBIN 25.4 pg (27.0-33.0); MEAN CORPUSCULAR HGB CONC 31.7 g/dl (32.0-36.5); MEAN CORPUSCULAR VOLUME 80.2 fl (80.0-96.0); PLATELET COUNT, AUTOMATED 237 10^3/uL (150-450); RED BLOOD COUNT 4.64 10^6/uL (4.00-5.40); WHITE BLOOD COUNT 6.3 10^3/uL (4.0-10.0)
[2023-06-14 09:05] LABS: CREATININE FOR GFR 1.36 MG/DL (0.55-1.30); GLOMERULAR FILTRATION RATE 40.1 (>39); POTASSIUM SERUM 4.4 MMOL/L (3.5-5.1)
[2023-06-14 09:06] LABS: THYROID STIMULATING HORMONE 0.069 uIU/ML (0.55-4.78)
== END ==
LOC: SKLAB2 07:00
PROVIDERS: ATTEND Internal Medicine
DX: E11.9 Type 2 diabetes mellitus without complications (principal); E03.9 Hypothyroidism, unspecified

== ENCOUNTER → 2023-08-26 | Outpatient (REF) | payer MEDICARE, MEDICAID ==
[~2023-08-26] MED LIST changes: -OXYB5TAB10 PO; +OXYB5TAB11 PO
[2023-08-26 06:46] LABS: HEMATOCRIT 35.7 % (36.0-47.0); HEMOGLOBIN 11.6 g/dl (12.0-15.5); MEAN CORPUSCULAR HEMOGLOBIN 26.1 pg (27.0-33.0); MEAN CORPUSCULAR HGB CONC 32.5 g/dl (32.0-36.5); MEAN CORPUSCULAR VOLUME 80.4 fl (80.0-96.0); PLATELET COUNT, AUTOMATED 195 10^3/uL (150-450); RED BLOOD COUNT 4.44 10^6/uL (4.00-5.40); WHITE BLOOD COUNT 5.6 10^3/uL (4.0-10.0)
[2023-08-26 07:05] LABS: CALCIUM LEVEL 10.7 MG/DL (8.3-10.6); CREATININE FOR GFR 1.3 MG/DL (0.55-1.30); GLOMERULAR FILTRATION RATE 42.2 (>39); POTASSIUM SERUM 4.3 MMOL/L (3.5-5.1)
== END ==
LOC: SKLAB2 07:00
PROVIDERS: ATTEND Internal Medicine
DX: E11.9 Type 2 diabetes mellitus without complications (principal); E03.9 Hypothyroidism, unspecified

== ENCOUNTER → 2023-10-15 | Outpatient (REF) | payer MEDICARE, MEDICAID ==
[~2023-10-15] MED LIST changes: +CELE10TA PO; +LEVO100T5 PO; +PROT20TA11 PO
[2023-10-15 10:18] LABS: HEMATOCRIT 36.6 % (36.0-47.0); HEMOGLOBIN 11.9 g/dl (12.0-15.5); MEAN CORPUSCULAR HEMOGLOBIN 26.6 pg (27.0-33.0); MEAN CORPUSCULAR HGB CONC 32.5 g/dl (32.0-36.5); MEAN CORPUSCULAR VOLUME 81.9 fl (80.0-96.0); PLATELET COUNT, AUTOMATED 214 10^3/uL (150-450); RED BLOOD COUNT 4.47 10^6/uL (4.00-5.40)
[2023-10-15 10:38] LABS: CALCIUM LEVEL 10.1 MG/DL (8.3-10.6); CREATININE FOR GFR 1.28 MG/DL (0.55-1.30); GLOMERULAR FILTRATION RATE 42.9 (>39)
[2023-10-15 10:41] LABS: THYROID STIMULATING HORMONE 0.073 uIU/ML (0.55-4.78)
== END ==
LOC: SKLAB2 08:41
PROVIDERS: ATTEND Family Medicine
DX: E11.9 Type 2 diabetes mellitus without complications (principal); E03.9 Hypothyroidism, unspecified

== ENCOUNTER → 2023-10-18 | Outpatient (REF) | payer MEDICARE, MEDICAID ==
[2023-10-18 09:57] LABS: HEMOGLOBIN A1c 5.7 % (4.0-6.0)
== END ==
LOC: SKLAB2 07:00
PROVIDERS: ATTEND Family Medicine
DX: E11.9 Type 2 diabetes mellitus without complications (principal)

== ENCOUNTER → 2023-11-12 | Outpatient (REF) | payer MEDICARE, MEDICAID ==
[~2023-11-12] MED LIST changes: +RISP-105 PO; -RISP-8 PO
[2023-11-12 16:01] LABS: APPEARANCE, URINE CLOUDY (CLEAR); BACTERIA, URINE AUTO 2+ (NEGATIVE); BILIRUBIN, URINE AUTO NEGATIVE (NEGATIVE); BLOOD, URINE BLOOD NEGATIVE (NEGATIVE); COLOR, URINE YELLOW (YELLOW); GLUCOSE, URINE (UA) AUTO NEGATIVE (NEGATIVE); KETONE, URINE AUTO NEGATIVE (NEGATIVE); LEUKOCYTE ESTERASE, URINE AUTO 3+ (NEGATIVE); NITRITE, URINE AUTO NEGATIVE (NEGATIVE); PROTEIN, URINE AUTO 1+ mg/dL (NEGATIVE); RBC, URINE AUTO 0 /HPF (0-3); SPECIFIC GRAVITY URINE AUTO 1.013 (1.002-1.035); SQUAMOUS EPITHELIAL CELL UR AU 0 /HPF (0-6); UROBILINOGEN, URINE AUTO 0.2 mg/dL (0.0-2.0); WBC, URINE AUTO TNTC /HPF (0-3)
== END ==
LOC: SKLAB2 11:45
DX: R30.0 Dysuria (principal)

== ENCOUNTER 2023-12-06 09:46 | Day surgery (SDC) | payer MEDICARE, MEDICAID ==
[~2023-12-06] VITALS: Ht 157.5 cm; Wt 71.2 kg
[2023-12-06] MEDS: LIDOCAINE 3.5 % 1ML OPHTH TOPICAL GEL OU ONE (09:45)
[2023-12-06] MEDS: OFLOXACIN 0.3 % (OCUFLOX) OPTH SOL 5ML OS ONE (09:45)
[~2023-12-06 09:46] MED LIST changes: -ASPI-161 PO; +ASPI-226 PO; +ASPI-615 PO; +CALC600T85 PO; +HYDR-3490 PO; +MELA5CAP2 PO; +MIDAZOLAM INJ 2MG/2ML VIAL As Ordered ONE; -OXYB5TAB11 PO; +OXYB5TAB14 PO; +PRAZ1CAP PO; +fentaNYL 100 MCG/2 ML INJECTION As Ordered ONE
[2023-12-06] MEDS ORDERED: ONDANSETRON 4MG 2ML VIAL As Ordered ONE (09:57)
[2023-12-06] MEDS ORDERED: propofoL 200 MG/20 ML VIAL As Ordered ONE (09:57)
[2023-12-06] MEDS ORDERED: LIDOCAINE 2% 100MG/5ML SDV (FOR ANES.) As Ordered ONE (09:57)
[2023-12-06] MEDS: PHENYLEPHRINE 10% OPHTH SOL 5ML OS PRN (10:19)
[2023-12-06] MEDS: ATROPINE SULFATE 1% OPHTH SOLN 2ML BTL OS SCH (10:23)
[2023-12-06] MEDS: PHENYLEPHRINE 2.5% OPHTH SOL 2ML OS SCH (10:23)
[2023-12-06] MEDS: TROPICAMIDE 1% OPHTH SOLN 15ML OS SCH (10:23)
[2023-12-06] MEDS: LIDOCAINE 1% SDV 5ML VIAL As Ordered ONE (10:37)
[2023-12-06] MEDS: CEFUROXIME 1MG/0.1ML INTRACAMERAL INJ As Ordered ONE (10:37)
[2023-12-06] MEDS: BSS IRRIG/VANCO(10MG)/TOBRA(5MG)/EPINEPH(1:1000-0.5CC)500ML BAG-ORONLY As Ordered ONE (10:38)
[2023-12-06 11:35] VITALS: BP 113/55; TEMP 96.7; O2SAT 94
== END 2023-12-06 11:48 | disposition home or self-care (01) ==
LOC: M SDC 09:46
PROVIDERS: ATTEND Ophthalmology
DX: E11.36 Type 2 diabetes mellitus with diabetic cataract (principal); H25.12 Age-related nuclear cataract, left eye; I11.0 Hypertensive heart disease with heart failure; I50.9 Heart failure, unspecified; I25.10 Atherosclerotic heart disease of native coronary artery without angina pectoris; E03.9 Hypothyroidism, unspecified; K21.9 Gastro-esophageal reflux disease without esophagitis; Z79.899 Other long term (current) drug therapy; Z79.890 Hormone replacement therapy; Z86.73 Personal history of transient ischemic attack (TIA), and cerebral infarction without residual deficits; Z90.89 Acquired absence of other organs; Z90.49 Acquired absence of other specified parts of digestive tract
CPT/HCPCS: 66984; J0697; J1100; J2405; J3010; V2632

== ENCOUNTER → 2024-03-25 | Outpatient (REF) | payer MEDICARE, MEDICAID ==
[~2024-03-25] MED LIST changes: -MIDAZOLAM INJ 2MG/2ML VIAL As Ordered ONE; -fentaNYL 100 MCG/2 ML INJECTION As Ordered ONE
[2024-03-25 10:14] LABS: HEMATOCRIT 33.3 % (36.0-47.0); HEMOGLOBIN 10.9 g/dl (12.0-15.5); MEAN CORPUSCULAR HGB CONC 32.7 g/dl (32.0-36.5); MEAN CORPUSCULAR VOLUME 82.4 fl (80.0-96.0); PLATELET COUNT, AUTOMATED 193 10^3/uL (150-450); RED BLOOD COUNT 4.04 10^6/uL (4.00-5.40); WHITE BLOOD COUNT 5.7 10^3/uL (4.0-10.0)
[2024-03-25 10:36] LABS: HEMOGLOBIN A1c 5.6 % (4.0-6.0)
[2024-03-25 10:44] LABS: CALCIUM LEVEL 9.5 MG/DL (8.3-10.6); CHOLESTEROL RISK RATIO 3.25 (<5); CREATININE FOR GFR 1.41 MG/DL (0.55-1.30); GLOMERULAR FILTRATION RATE 38.4 (>39); HDL CHOLESTEROL 49.1 MG/DL (>40); LDL CHOLESTEROL 85.7 MG/DL (<100); NON-HDL-C 110.9 MG/DL; PHOSPHORUS LEVEL 4.3 MG/DL (2.4-5.1); PTH INTACT 41.7 PG/ML (18.5-88.0)
[2024-03-25 10:45] LABS: THYROID STIMULATING HORMONE 0.169 uIU/ML (0.55-4.78)
== END ==
LOC: SKLAB5 07:00
PROVIDERS: ATTEND Internal Medicine
DX: E78.5 Hyperlipidemia, unspecified (principal); E03.9 Hypothyroidism, unspecified; E11.9 Type 2 diabetes mellitus without complications; Z79.899 Other long term (current) drug therapy

== ENCOUNTER → 2024-03-26 | Outpatient (REF) | payer MEDICARE, MEDICAID ==
[2024-03-26 13:45] LABS: APPEARANCE, URINE TURBID (CLEAR); BACTERIA, URINE AUTO 2+ (NEGATIVE); BILIRUBIN, URINE AUTO NEGATIVE (NEGATIVE); BLOOD, URINE BLOOD NEGATIVE (NEGATIVE); COLOR, URINE YELLOW (YELLOW); GLUCOSE, URINE (UA) AUTO NEGATIVE (NEGATIVE); KETONE, URINE AUTO NEGATIVE (NEGATIVE); LEUKOCYTE ESTERASE, URINE AUTO 3+ (NEGATIVE); NITRITE, URINE AUTO NEGATIVE (NEGATIVE); PROTEIN, URINE AUTO 1+ mg/dL (NEGATIVE); RBC, URINE AUTO 7 /HPF (0-3); SPECIFIC GRAVITY URINE AUTO 1.012 (1.002-1.035); SQUAMOUS EPITHELIAL CELL UR AU 0 /HPF (0-6); UROBILINOGEN, URINE AUTO 0.2 mg/dL (0.0-2.0); WBC, URINE AUTO TNTC /HPF (0-3)
== END ==
LOC: SKLAB5 13:09
PROVIDERS: ATTEND Internal Medicine
DX: R30.9 Painful micturition, unspecified (principal)

== ENCOUNTER → 2024-04-15 | Outpatient (REF) | payer MEDICARE, MEDICAID | LOC: SKLAB5 09:00 | PROVIDERS: ATTEND Internal Medicine | DX: M19.071 Primary osteoarthritis, right ankle and foot (principal); M19.072 Primary osteoarthritis, left ankle and foot; I70.90 Unspecified atherosclerosis; M25.572 Pain in left ankle and joints of left foot ==

== ENCOUNTER → 2024-04-18 | Outpatient (REF) | payer MEDICARE, MEDICAID | LOC: SKLAB5 14:17 | PROVIDERS: ATTEND Internal Medicine | DX: K59.00 Constipation, unspecified (principal); Z93.8 Other artificial opening status ==

== ENCOUNTER → 2024-04-18 | Outpatient (REF) | payer MEDICARE, MEDICAID ==
[2024-04-18 11:35] LABS: HEMATOCRIT 34.6 % (36.0-47.0); HEMOGLOBIN 11.3 g/dl (12.0-15.5); MEAN CORPUSCULAR HGB CONC 32.7 g/dl (32.0-36.5); MEAN CORPUSCULAR VOLUME 82.6 fl (80.0-96.0); PLATELET COUNT, AUTOMATED 206 10^3/uL (150-450); RED BLOOD COUNT 4.19 10^6/uL (4.00-5.40); WHITE BLOOD COUNT 10.1 10^3/uL (4.0-10.0)
[2024-04-18 12:16] LABS: CALCIUM LEVEL 9.5 MG/DL (8.3-10.6); CREATININE FOR GFR 1.88 MG/DL (0.55-1.30); GLOMERULAR FILTRATION RATE 27.6 (>39); POTASSIUM SERUM 6.1 MMOL/L (3.5-5.1)
== END ==
LOC: SKLAB5 10:31
PROVIDERS: ATTEND Internal Medicine
DX: R19.7 Diarrhea, unspecified (principal)

== ENCOUNTER → 2024-04-19 | Outpatient (REF) | payer MEDICARE, MEDICAID ==
[2024-04-19 10:36] LABS: HEMATOCRIT 34.7 % (36.0-47.0); HEMOGLOBIN 11.3 g/dl (12.0-15.5); MEAN CORPUSCULAR HGB CONC 32.6 g/dl (32.0-36.5); PLATELET COUNT, AUTOMATED 176 10^3/uL (150-450); RED BLOOD COUNT 4.18 10^6/uL (4.00-5.40); WHITE BLOOD COUNT 7.9 10^3/uL (4.0-10.0)
[2024-04-19 11:07] LABS: CALCIUM LEVEL 8.7 MG/DL (8.3-10.6); CREATININE FOR GFR 2.1 MG/DL (0.55-1.30); GLOMERULAR FILTRATION RATE 24.2 (>39); POTASSIUM SERUM 5.5 MMOL/L (3.5-5.1)
== END ==
LOC: SKLAB5 09:00
PROVIDERS: ATTEND Internal Medicine
DX: N17.9 Acute kidney failure, unspecified (principal); E87.5 Hyperkalemia

== ENCOUNTER → 2024-04-21 | Outpatient (REF) | payer MEDICARE, MEDICAID ==
[2024-04-21 09:44] LABS: CALCIUM LEVEL 9.6 MG/DL (8.3-10.6); CREATININE FOR GFR 1.77 MG/DL (0.55-1.30); GLOMERULAR FILTRATION RATE 29.5 (>39); POTASSIUM SERUM 5.6 MMOL/L (3.5-5.1)
== END ==
LOC: SKLAB5 08:04
PROVIDERS: ATTEND Internal Medicine
DX: R11.2 Nausea with vomiting, unspecified (principal); R19.7 Diarrhea, unspecified

== ENCOUNTER → 2024-04-24 | Outpatient (REF) | payer MEDICAID, MEDICARE ==
[2024-04-24 10:56] LABS: CALCIUM LEVEL 8.9 MG/DL (8.3-10.6); CREATININE FOR GFR 1.44 MG/DL (0.55-1.30); GLOMERULAR FILTRATION RATE 37.5 (>39); POTASSIUM SERUM 5.2 MMOL/L (3.5-5.1)
== END ==
LOC: SKLAB5 08:13
PROVIDERS: ATTEND Internal Medicine
DX: E87.1 Hypo-osmolality and hyponatremia (principal); E87.5 Hyperkalemia

== ENCOUNTER → 2024-04-25 | Outpatient (REF) | payer MEDICARE, MEDICAID ==
[2024-04-30 14:47] LABS: CALCIUM LEVEL 8.7 MG/DL (8.3-10.6); CREATININE FOR GFR 1.34 MG/DL (0.55-1.30); GLOMERULAR FILTRATION RATE 40.7 (>39)
== END ==
LOC: SKLAB5 08:00
PROVIDERS: ATTEND Internal Medicine
DX: E87.5 Hyperkalemia (principal)

== ENCOUNTER → 2024-05-09 | Outpatient (REF) | payer MEDICARE, MEDICAID ==
[2024-05-09 09:59] LABS: CALCIUM LEVEL 9.6 MG/DL (8.3-10.6); CREATININE FOR GFR 1.47 MG/DL (0.55-1.30); GLOMERULAR FILTRATION RATE 36.6 (>39); POTASSIUM SERUM 5.4 MMOL/L (3.5-5.1)
== END ==
LOC: SKLAB5 08:31
PROVIDERS: ATTEND Internal Medicine
DX: E87.5 Hyperkalemia (principal)

== ENCOUNTER → 2024-05-12 | Outpatient (REF) | payer MEDICARE, MEDICAID ==
[2024-05-12 10:51] LABS: CALCIUM LEVEL 8.9 MG/DL (8.3-10.6); CREATININE FOR GFR 1.82 MG/DL (0.55-1.30); GLOMERULAR FILTRATION RATE 28.6 (>39); POTASSIUM SERUM 5.2 MMOL/L (3.5-5.1)
== END ==
LOC: SKLAB5 08:05
PROVIDERS: ATTEND Internal Medicine
DX: E87.5 Hyperkalemia (principal)

== ENCOUNTER → 2024-05-13 | Outpatient (REF) | payer MEDICARE, MEDICAID ==
[2024-05-13 16:02] LABS: CALCIUM LEVEL 8.8 MG/DL (8.3-10.6); CREATININE FOR GFR 1.61 MG/DL (0.55-1.30); GLOMERULAR FILTRATION RATE 32.9 (>39); POTASSIUM SERUM 5.4 MMOL/L (3.5-5.1)
[2024-05-13 16:05] LABS: HEMATOCRIT 31.6 % (36.0-47.0); HEMOGLOBIN 9.9 g/dl (12.0-15.5); MEAN CORPUSCULAR HEMOGLOBIN 26.7 pg (27.0-33.0); MEAN CORPUSCULAR HGB CONC 31.3 g/dl (32.0-36.5); MEAN CORPUSCULAR VOLUME 85.2 fl (80.0-96.0); PLATELET COUNT, AUTOMATED 230 10^3/uL (150-450); RED BLOOD COUNT 3.71 10^6/uL (4.00-5.40); WHITE BLOOD COUNT 4.8 10^3/uL (4.0-10.0)
== END ==
LOC: SKLAB5 12:37
PROVIDERS: ATTEND Internal Medicine
DX: U07.1 COVID-19 (principal); Z79.899 Other long term (current) drug therapy

== ENCOUNTER → 2024-05-14 | Outpatient (REF) | payer MEDICARE, MEDICAID ==
[2024-05-14 20:14] LABS: CALCIUM LEVEL 8.5 MG/DL (8.3-10.6); CREATININE FOR GFR 1.6 MG/DL (0.55-1.30); GLOMERULAR FILTRATION RATE 33.2 (>39)
== END ==
LOC: SKLAB5 13:23
PROVIDERS: ATTEND Internal Medicine
DX: E87.5 Hyperkalemia (principal)

== ENCOUNTER → 2024-05-19 | Outpatient (REF) | payer MEDICARE, MEDICAID ==
[2024-05-19 14:22] LABS: APPEARANCE, URINE CLOUDY (CLEAR); BACTERIA, URINE AUTO 2+ (NEGATIVE); BILIRUBIN, URINE AUTO NEGATIVE (NEGATIVE); BLOOD, URINE BLOOD 1+ (NEGATIVE); COLOR, URINE YELLOW (YELLOW); GLUCOSE, URINE (UA) AUTO NEGATIVE (NEGATIVE); KETONE, URINE AUTO NEGATIVE (NEGATIVE); LEUKOCYTE ESTERASE, URINE AUTO 3+ (NEGATIVE); NITRITE, URINE AUTO NEGATIVE (NEGATIVE); PROTEIN, URINE AUTO NEGATIVE (NEGATIVE); RBC, URINE AUTO 4 /HPF (0-3); SPECIFIC GRAVITY URINE AUTO 1.005 (1.002-1.035); SQUAMOUS EPITHELIAL CELL UR AU 0 /HPF (0-6); UROBILINOGEN, URINE AUTO 0.2 mg/dL (0.0-2.0); WBC, URINE AUTO TNTC /HPF (0-3)
== END ==
LOC: SKLAB5 10:23
PROVIDERS: ATTEND Internal Medicine
DX: R41.0 Disorientation, unspecified (principal)

== ENCOUNTER → 2024-06-19 | Outpatient (REF) | payer MEDICARE, MEDICAID ==
[2024-06-19 08:58] LABS: APPEARANCE, URINE CLOUDY (CLEAR); BACTERIA, URINE AUTO 2+ (NEGATIVE); BILIRUBIN, URINE AUTO NEGATIVE (NEGATIVE); BLOOD, URINE BLOOD NEGATIVE (NEGATIVE); COLOR, URINE YELLOW (YELLOW); GLUCOSE, URINE (UA) AUTO NEGATIVE (NEGATIVE); KETONE, URINE AUTO NEGATIVE (NEGATIVE); LEUKOCYTE ESTERASE, URINE AUTO 3+ (NEGATIVE); MUCUS, URINE SMALL (NEGATIVE); NITRITE, URINE AUTO NEGATIVE (NEGATIVE); PROTEIN, URINE AUTO NEGATIVE (NEGATIVE); RBC, URINE AUTO 2 /HPF (0-3); SPECIFIC GRAVITY URINE AUTO 1.008 (1.002-1.035); SQUAMOUS EPITHELIAL CELL UR AU 0 /HPF (0-6); UROBILINOGEN, URINE AUTO 0.2 mg/dL (0.0-2.0); WBC, URINE AUTO TNTC /HPF (0-3)
== END ==
LOC: SKLAB5 08:08
PROVIDERS: ATTEND Internal Medicine
DX: R30.0 Dysuria (principal)

== ENCOUNTER → 2024-07-22 | Outpatient (REF) | payer MEDICARE, MEDICAID ==
[2024-07-22 11:50] LABS: HEMATOCRIT 30.3 % (36.0-47.0); HEMOGLOBIN 9.4 g/dl (12.0-15.5); MEAN CORPUSCULAR HEMOGLOBIN 26.9 pg (27.0-33.0); MEAN CORPUSCULAR VOLUME 86.8 fl (80.0-96.0); PLATELET COUNT, AUTOMATED 202 10^3/uL (150-450); RED BLOOD COUNT 3.49 10^6/uL (4.00-5.40); WHITE BLOOD COUNT 6.1 10^3/uL (4.0-10.0)
[2024-07-22 12:11] LABS: CALCIUM LEVEL 9.4 MG/DL (8.3-10.6); CREATININE FOR GFR 1.19 MG/DL (0.55-1.30); GLOMERULAR FILTRATION RATE 46.6 (>39); POTASSIUM SERUM 4.3 MMOL/L (3.5-5.1)
[2024-07-22 12:13] LABS: THYROID STIMULATING HORMONE 1.038 uIU/ML (0.55-4.78)
== END ==
LOC: SKLAB5 07:00
PROVIDERS: ATTEND Internal Medicine
DX: I10 Essential (primary) hypertension (principal); E03.9 Hypothyroidism, unspecified

== ENCOUNTER → 2024-07-28 | Outpatient (REF) | payer MEDICARE, MEDICAID ==
[2024-07-28 13:10] LABS: APPEARANCE, URINE CLOUDY (CLEAR); BACTERIA, URINE AUTO 1+ (NEGATIVE); BILIRUBIN, URINE AUTO NEGATIVE (NEGATIVE); BLOOD, URINE BLOOD NEGATIVE (NEGATIVE); COLOR, URINE YELLOW (YELLOW); GLUCOSE, URINE (UA) AUTO NEGATIVE (NEGATIVE); KETONE, URINE AUTO NEGATIVE (NEGATIVE); LEUKOCYTE ESTERASE, URINE AUTO 3+ (NEGATIVE); MUCUS, URINE SMALL (NEGATIVE); NITRITE, URINE AUTO NEGATIVE (NEGATIVE); PROTEIN, URINE AUTO NEGATIVE (NEGATIVE); RBC, URINE AUTO 0 /HPF (0-3); SPECIFIC GRAVITY URINE AUTO 1.005 (1.002-1.035); SQUAMOUS EPITHELIAL CELL UR AU 0 /HPF (0-6); UROBILINOGEN, URINE AUTO 0.2 mg/dL (0.0-2.0); WBC, URINE AUTO TNTC /HPF (0-3)
== END ==
LOC: SKLAB5 12:08
PROVIDERS: ATTEND Internal Medicine
DX: R30.0 Dysuria (principal)

== ENCOUNTER → 2024-10-10 | Outpatient (REF) | payer MEDICARE, MEDICAID ==
[2024-10-10 11:33] LABS: HEMOGLOBIN A1c 6.4 % (4.0-6.0)
== END ==
LOC: SKLAB5 07:00
PROVIDERS: ATTEND Internal Medicine
DX: E11.9 Type 2 diabetes mellitus without complications (principal)

== ENCOUNTER → 2024-10-20 | Outpatient (REF) | payer MEDICARE, MEDICAID ==
[2024-10-20 16:03] LABS: APPEARANCE, URINE MANUAL CLOUDY (CLEAR); BILIRUBIN, URINE MANUAL NEGATIVE (NEGATIVE); BLOOD URINE MANUAL POSITIVE (NEGATIVE); COLOR, URINE MANUAL YELLOW (YELLOW); GLUCOSE, URINE (UA) MANUAL NEGATIVE (NEGATIVE); KETONE, URINE MANUAL NEGATIVE (NEGATIVE); LEUKOCYTE ESTERASE, URINE MAN POSITIVE (NEGATIVE); NITRITE, URINE MANUAL NEGATIVE (NEGATIVE); PROTEIN, URINE MANUAL 3+ mg/dL (NEGATIVE); SPECIFIC GRAVITY,URINE MANUAL 1.015 (1.002-1.035); UROBILINOGEN, URINE MANUAL NORMAL (NORMAL)
[2024-10-20 16:06] LABS: BACTERIA, URINE LARGE AMOUNT; GRANULAR CAST, URINE 0-1 /lpf; SQUAMOUS EPITHELIAL CELL URINE SMALL AMOUNT /hpf (SMALL AMT); TRANSITIONAL EPI CELLS, URINE SMALL AMOUNT /hpf; WBC, URINE TNTC /hpf (0-3)
== END ==
LOC: SKLAB5 13:42
PROVIDERS: ATTEND Internal Medicine
DX: R30.0 Dysuria (principal)

== ENCOUNTER → 2024-11-13 | Outpatient (REF) | payer MEDICARE, MEDICAID ==
[2024-11-13 14:21] LABS: APPEARANCE, URINE CLOUDY (CLEAR); BACTERIA, URINE AUTO 1+ (NEGATIVE); BILIRUBIN, URINE AUTO NEGATIVE (NEGATIVE); BLOOD, URINE BLOOD NEGATIVE (NEGATIVE); COLOR, URINE YELLOW (YELLOW); GLUCOSE, URINE (UA) AUTO NEGATIVE (NEGATIVE); KETONE, URINE AUTO NEGATIVE (NEGATIVE); LEUKOCYTE ESTERASE, URINE AUTO 3+ (NEGATIVE); MUCUS, URINE SMALL (NEGATIVE); NITRITE, URINE AUTO NEGATIVE (NEGATIVE); PROTEIN, URINE AUTO 1+ mg/dL (NEGATIVE); RBC, URINE AUTO 11 /HPF (0-3); SPECIFIC GRAVITY URINE AUTO 1.014 (1.002-1.035); SQUAMOUS EPITHELIAL CELL UR AU 0 /HPF (0-6); UROBILINOGEN, URINE AUTO 0.2 mg/dL (0.0-2.0); WBC, URINE AUTO TNTC /HPF (0-3)
== END ==
LOC: SKLAB5 10:22
PROVIDERS: ATTEND Internal Medicine
DX: R30.9 Painful micturition, unspecified (principal); R32 Unspecified urinary incontinence

== ENCOUNTER → 2024-12-08 | Outpatient (REF) | payer MEDICARE, MEDICAID ==
[2024-12-08 14:28] LABS: HEMATOCRIT 34.8 % (36.0-47.0); HEMOGLOBIN 10.6 g/dl (12.0-15.5); MEAN CORPUSCULAR HEMOGLOBIN 24.2 pg (27.0-33.0); MEAN CORPUSCULAR HGB CONC 30.5 g/dl (32.0-36.5); MEAN CORPUSCULAR VOLUME 79.5 fl (80.0-96.0); PLATELET COUNT, AUTOMATED 210 10^3/uL (150-450); RED BLOOD COUNT 4.38 10^6/uL (4.00-5.40); WHITE BLOOD COUNT 6.2 10^3/uL (4.0-10.0)
[2024-12-08 15:03] LABS: CALCIUM LEVEL 9.1 MG/DL (8.3-10.6); CREATININE FOR GFR 1.12 MG/DL (0.55-1.30); POTASSIUM SERUM 4.1 MMOL/L (3.5-5.1)
== END ==
LOC: SKLAB5 13:40
PROVIDERS: ATTEND Internal Medicine
DX: J06.9 Acute upper respiratory infection, unspecified (principal); R63.8 Other symptoms and signs concerning food and fluid intake

== ENCOUNTER → 2024-12-09 | Outpatient (REF) | payer MEDICARE, MEDICAID | LOC: SKLAB5 09:55 | PROVIDERS: ATTEND Internal Medicine | DX: R06.02 Shortness of breath (principal); Z53.9 Procedure and treatment not carried out, unspecified reason ==

== ENCOUNTER → 2024-12-09 | Outpatient (REF) | payer MEDICARE, MEDICAID | LOC: SKLAB5 09:52 | PROVIDERS: ATTEND Internal Medicine | DX: R06.02 Shortness of breath (principal) ==

== ENCOUNTER → 2025-02-05 | Outpatient (REF) | payer MEDICARE, MEDICAID ==
[2025-02-05 07:37] LABS: HEMATOCRIT 34.4 % (36.0-47.0); HEMOGLOBIN 10.1 g/dl (12.0-15.5); MEAN CORPUSCULAR HEMOGLOBIN 22.8 pg (27.0-33.0); MEAN CORPUSCULAR HGB CONC 29.4 g/dl (32.0-36.5); MEAN CORPUSCULAR VOLUME 77.7 fl (80.0-96.0); PLATELET COUNT, AUTOMATED 210 10^3/uL (150-450); RED BLOOD COUNT 4.43 10^6/uL (4.00-5.40); WHITE BLOOD COUNT 5.8 10^3/uL (4.0-10.0)
[2025-02-05 08:05] LABS: CALCIUM LEVEL 8.9 MG/DL (8.3-10.6); CREATININE FOR GFR 1.1 MG/DL (0.55-1.30); GLOMERULAR FILTRATION RATE 51.1 (>39); THYROID STIMULATING HORMONE 2.664 uIU/ML (0.55-4.78)
== END ==
LOC: SKLAB5 07:00
PROVIDERS: ATTEND Internal Medicine
DX: E11.9 Type 2 diabetes mellitus without complications (principal); E03.9 Hypothyroidism, unspecified

== ENCOUNTER → 2025-03-31 | Outpatient (REF) | payer MEDICARE, MEDICAID ==
[~2025-03-31] MED LIST changes: +BUSP5TA PO; +GABA-1171 PO; +LEVO75TA4 PO; +LORA1TAB23 PO; +METH-855 PO; +NITR4TASL SL; +REFR0.5D8 OU; +TRAZ-252 PO
[2025-03-31 08:40] LABS: CHOLESTEROL RISK RATIO 3.05 (<5); HDL CHOLESTEROL 52.3 MG/DL (>40); LDL CHOLESTEROL 75.7 MG/DL (<100); NON-HDL-C 107.7 MG/DL; PHOSPHORUS LEVEL 3.1 MG/DL (2.4-5.1)
== END ==
LOC: SKLAB5 07:00
PROVIDERS: ATTEND Internal Medicine
DX: E78.5 Hyperlipidemia, unspecified (principal)

== ENCOUNTER → 2025-04-30 | Outpatient (REF) | payer MEDICARE, MEDICAID ==
[~2025-04-30] MED LIST changes: +HYDR12.510 PO; -HYDR12CA PO
[2025-04-30 11:21] LABS: ESTIMATED AVERAGE GLUCOSE 171.0 MG/DL (60-110)
== END ==
LOC: SKLAB5 07:00
PROVIDERS: ATTEND Internal Medicine
DX: E11.9 Type 2 diabetes mellitus without complications (principal)

== ENCOUNTER → 2025-06-30 | Outpatient (REF) | payer MEDICARE, MEDICAID ==
[~2025-06-30] MED LIST changes: +METH-1100 PO; -METH-855 PO
[2025-06-30 11:37] LABS: PLATELET COUNT, AUTOMATED 237 10^3/uL (150-450)
[2025-06-30 12:16] LABS: CALCIUM LEVEL 8.9 MG/DL (8.3-10.6); CARBON DIOXIDE LEVEL 26.0 MMOL/L (20-31); CHLORIDE LEVEL 104.0 MMOL/L (98-107); CREATININE FOR GFR 1.25 MG/DL (0.55-1.30); GLOMERULAR FILTRATION RATE 43.8 (>39); POTASSIUM SERUM 4.1 MMOL/L (3.5-5.1); SODIUM LEVEL 137.0 MMOL/L (136-145)
== END ==
LOC: SKLAB5 07:00
PROVIDERS: ATTEND Internal Medicine
DX: E03.9 Hypothyroidism, unspecified (principal); I10 Essential (primary) hypertension